=== PATIENT | male | born 1940 | race Caucasian/White ===

== ENCOUNTER → 2016-11-27 | Outpatient (REF) | payer MEDICARE ==
[2016-11-27 12:45] LABS: ALBUMIN 3.8 GM/DL (3.2-5.2); ALBUMIN/GLOBULIN RATIO 1.27 (1.00-1.93); ALKALINE PHOSPHATASE 89 U/L (45-117); ALT/SGPT 17 U/L (12-78); ANION GAP 8 MEQ/L (8-16); AST/SGOT 12 U/L (15-37); BILIRUBIN,TOTAL 0.4 MG/DL (0.2-1.0); BLOOD UREA NITROGEN 17 MG/DL (7-18); CALCIUM LEVEL 9.1 MG/DL (8.8-10.2); CARBON DIOXIDE LEVEL 30 MEQ/L (21-32); CHLORIDE LEVEL 100 MEQ/L (98-107); CREATININE FOR GFR 0.88 MG/DL (0.70-1.30); GLOMERULAR FILTRATION RATE > 60.0 (>42); GLUCOSE, FASTING 94 MG/DL (83-110); POTASSIUM SERUM 4.9 MEQ/L (3.5-5.1); SODIUM LEVEL 138 MEQ/L (136-145); TOTAL PROTEIN 6.8 GM/DL (6.4-8.2)
== END ==
LOC: M SFHCCLAY 08:57
PROVIDERS: ATTEND Family Medicine
DX: I10 Essential (primary) hypertension (principal)
CPT/HCPCS: 36415; 80053; G0463

== ENCOUNTER → 2017-04-02 | Outpatient (REF) | payer MEDICARE ==
[~2017-04-02] MED LIST: ACET1TAB17 PO; ASPI1TAB PO; ATEN25TA PO; DICY10CA13 PO; TERA5CA PO; VENTAER IN
== END ==
LOC: M LABDRAWC 11:18
PROVIDERS: ATTEND Radiology Radiation Oncology
DX: C61 Malignant neoplasm of prostate (principal)

== ENCOUNTER → 2017-04-02 | Outpatient (REF) | payer MEDICARE ==
[2017-04-02 11:44] LABS: BASO # 0.1 K/mm3 (0.0-0.2); BASO % 0.9 % (0.0-1.0); EOS # 0.1 K/mm3 (0.0-0.50); EOS % 1.1 % (0.0-3.0); LARGE UNSTAINED CELL # 0.1 K/mm3 (0.0-0.4); LARGE UNSTAINED CELL % 1.1 % (0.0-4.0); LYMPH # 1.2 K/mm3 (1.5-4.5); LYMPH % 11.7 % (24.0-44.0); MEAN CORPUSCULAR HEMOGLOBIN 32.8 pg (27.0-33.0); MEAN CORPUSCULAR HGB CONC 33.7 g/dl (32.0-36.5); MEAN CORPUSCULAR VOLUME 97.3 fl (80.0-96.0); MONO # 0.7 K/mm3 (0.0-0.8); NEUTROPHILS # 7.1 K/mm3 (1.8-7.7); NEUTROPHILS % 77.2 % (36.0-66.0); PLATELET COUNT, AUTOMATED 327 k/mm3 (150-450); WHITE BLOOD COUNT 9.1 K/mm3 (4.0-10.0)
[2017-04-02 12:18] LABS: ANION GAP 5 MEQ/L (8-16); BLOOD UREA NITROGEN 15 MG/DL (7-18); CALCIUM LEVEL 9.1 MG/DL (8.8-10.2); CARBON DIOXIDE LEVEL 31 MEQ/L (21-32); CHLORIDE LEVEL 101 MEQ/L (98-107); CREATININE FOR GFR 0.75 MG/DL (0.70-1.30); GLOMERULAR FILTRATION RATE > 60.0 (>42); GLUCOSE, FASTING 86 MG/DL (83-110); POTASSIUM SERUM 4.5 MEQ/L (3.5-5.1); SODIUM LEVEL 137 MEQ/L (136-145)
[2017-04-02 12:19] LABS: VITAMIN B12 LEVEL 357 PG/ML (247-911)
[2017-04-02 12:20] LABS: FOLATE 7.3 NG/ML (>5.4)
[2017-04-02 12:36] LABS: ERYTHROCYTE SEDIMENTATION RATE 9 mm/hr (0-20)
== END ==
LOC: M SFHCCLAY 09:09
PROVIDERS: ATTEND Family Medicine
DX: R29.898 Other symptoms and signs involving the musculoskeletal system (principal)

== ENCOUNTER → 2017-04-02 | Outpatient (CLI) | payer MEDICARE ==
--- NOTE | 2017-04-02 11:11 | REP ---
CERVICAL SPINE, EIGHT VIEWS: HISTORY: Hand weakness. COMPARISON: 10/10/2005. The cervical spine is visualized from C1-C7 in the lateral radiographs. There is no acute fracture. The C3-4 through C5-6 intervertebral discs are decreased in height consistent with disc degeneration. Osteophytes are present on C2-5. There is narrowing of the C3-6 neural foramina secondary to uncinate process hypertrophy. There are 2 mm of retrolisthesis of C3 on 4. This reduces with flexion and returns to 2 mm with extension. IMPRESSION: Degenerative change as described above.
== END ==
LOC: M CLY 09:44
PROVIDERS: ATTEND Family Medicine
DX: R29.898 Other symptoms and signs involving the musculoskeletal system (principal); M50.31 Other cervical disc degeneration, high cervical region; M50.321 Other cervical disc degeneration at C4-C5 level; M50.322 Other cervical disc degeneration at C5-C6 level
CPT/HCPCS: 36415; 72050; 80048; 82607; 82746; 84153; 85025; 85652; G0463

== ENCOUNTER → 2017-04-17 | Outpatient (CLI) | payer MEDICARE ==
--- NOTE | 2017-04-17 16:31 | REP ---
HISTORY: Neck pain and radicular symptoms. The patient has a history of prostate carcinoma. Gadolinium utilized: 17.5 mL of ProHance. There are no prior cervical spine MRIs for comparison. There is a slightly exaggerated cervical kyphosis. There is loss of disc space height and disc hydrational signal which is moderate at every level, but more moderate to severe at the C3-4 level. There is a vertebral body hemangioma involving C7. There is no abnormal signal seen in the imaged portion of the spinal cord, however, there is significant motion artifact on all images degrading image quality rather significantly. There is no gross craniovertebral junction abnormality. At the C2-3 level, there is a broad-based annular bulge seen in conjunction with a posterior spondylotic bar which causes mild central canal stenosis. There is no foraminal narrowing or evidence of an acute disc extrusion. At the C3-4 level, there is heavy posterior spondylosis seen in conjunction with a broad-based annular bulge. Hypertrophic degenerative facet and uncovertebral joint changes are present bilaterally. These factors are causing mild to moderate right and mild left foraminal stenosis. There is severe central canal stenosis caused by the aforementioned chronic changes. There is no evidence of an acute disc extrusion. A covered disc is suspected at this level. At the C4-5 level there is a broad-based annular bulge seen in conjunction with a posterior spondylotic bar. Hypertrophic degenerative facet and uncovertebral joint changes are present bilaterally causing mild bilateral foraminal stenosis. The ventral subarachnoid space is nearly obliterated and there is mild compression of the spinal cord. Mild to moderate central canal stenosis is present at this level. There is no evidence of an acute disc extrusion. At the C5-6 level, there is a broad-based annular bulge seen in conjunction with a posterior spondylotic bar. Degenerative facet and uncovertebral joint changes are present at this level bilaterally causing mild bilateral foraminal stenosis. The ventral subarachnoid space is nearly obliterated by the discogenic and spondylotic changes. There is mild to moderate central canal stenosis. I cannot rule out the possibility of a covered disc at this level. At the C6-7 level, there is a broad-based annular bulge seen in conjunction with a posterior spondylotic bar. Degenerative facet and uncovertebral joint changes are present bilaterally causing mild left foraminal stenosis. There is no evidence of right foraminal stenosis. The ventral subarachnoid space is nearly obliterated by the aforementioned discogenic and spondylotic changes causing mild central canal stenosis. There is no evidence of an acute disc extrusion. At the C7-T1 level, there is no abnormality. IMPRESSION: Multiple discogenic changes as described above with particular attention drawn to the C3-4 level. Signed by Tyrone Eldridge DO 04/17/2017 04:46 P
== END ==
LOC: M RAD 12:21
PROVIDERS: ATTEND Family Medicine
DX: M54.12 Radiculopathy, cervical region (principal)
CPT/HCPCS: 72156; A9576

== ENCOUNTER → 2017-05-21 | Outpatient (CLI) | payer MEDICARE ==
--- NOTE | 2017-05-21 10:44 | REP ---
Chest two views HISTORY: Edema Comparison: 01/23/2015 The lungs are clear. The heart is normal in size. The pulmonary vasculature is normal in appearance. Degenerative change is present in the thoracic spine. IMPRESSION: No acute disease.
== END ==
LOC: M CLY 09:47
PROVIDERS: ATTEND Family Medicine
DX: R60.1 Generalized edema (principal)
CPT/HCPCS: 71020; G0463

== ENCOUNTER → 2017-05-21 | Outpatient (REF) | payer MEDICARE ==
[2017-05-21 11:36] LABS: BASO # 0.1 K/mm3 (0.0-0.2); BASO % 0.6 % (0.0-1.0); EOS % 0.5 % (0.0-3.0); LARGE UNSTAINED CELL # 0.1 K/mm3 (0.0-0.4); LARGE UNSTAINED CELL % 0.8 % (0.0-4.0); LYMPH # 0.7 K/mm3 (1.5-4.5); LYMPH % 6.1 % (24.0-44.0); MEAN CORPUSCULAR HEMOGLOBIN 31.3 pg (27.0-33.0); MEAN CORPUSCULAR HGB CONC 32.9 g/dl (32.0-36.5); MONO # 0.8 K/mm3 (0.0-0.8); MONO % 7.6 % (0.0-5.0); NEUTROPHILS # 8.8 K/mm3 (1.8-7.7); NEUTROPHILS % 84.4 % (36.0-66.0); PLATELET COUNT, AUTOMATED 482 k/mm3 (150-450); RED CELL DISTRIBUTION WIDTH 12.8 % (11.5-14.5); WHITE BLOOD COUNT 10.4 K/mm3 (4.0-10.0)
[2017-05-21 12:06] LABS: ANION GAP 10 MEQ/L (8-16); BLOOD UREA NITROGEN 16 MG/DL (7-18); CALCIUM LEVEL 8.8 MG/DL (8.8-10.2); CARBON DIOXIDE LEVEL 27 MEQ/L (21-32); CHLORIDE LEVEL 100 MEQ/L (98-107); CREATININE FOR GFR 0.75 MG/DL (0.70-1.30); GLOMERULAR FILTRATION RATE > 60.0 (>42); GLUCOSE, FASTING 105 MG/DL (83-110); POTASSIUM SERUM 4.9 MEQ/L (3.5-5.1); SODIUM LEVEL 137 MEQ/L (136-145)
[2017-05-21 12:36] LABS: ERYTHROCYTE SEDIMENTATION RATE 35 mm/hr (0-20)
[2017-05-23 00:07] LABS: Lyme Disease IgG/IgM Antibodie <0.91 ISR (0.00-0.90); Lyme Disease IgM Ab Quantitati <0.80 index (0.00-0.79)
== END ==
LOC: M SFHCCLAY 09:23
PROVIDERS: ATTEND Family Medicine
DX: R60.1 Generalized edema (principal); M48.02 Spinal stenosis, cervical region

== ENCOUNTER → 2017-07-07 | Outpatient (REF) | payer MEDICARE | LOC: M LAB REF 11:15 | PROVIDERS: ATTEND Neurological Surgery | DX: M48.02 Spinal stenosis, cervical region (principal); M50.00 Cervical disc disorder with myelopathy, unspecified cervical region ==

== ENCOUNTER → 2017-09-05 | Outpatient (CLI) | payer MEDICARE ==
--- NOTE | 2017-09-08 06:37 | ECHO ---
DATE OF STUDY: 09/05/2017 REFERRING PHYSICIAN: Dr. Toney Hercules INDICATION: Aortic valve disorder (nonrheumatic). HEIGHT: 71 inches. WEIGHT: 165 pounds. 2D MEASUREMENTS: Aortic root: 3.0 cm Aortic annulus. 2.0 cm Left atrium: 3.5 cm Ventricular septum: 1.37 cm Posterior wall: 1.26 cm Left ventricle diastole: 5.7 cm Inferior vena cava: 1.7 cm (more than 60% respiratory variation) DOPPLER MEASUREMENTS: Moderate aortic regurgitation Moderate aortic stenosis Aortic valve area: 0.96 cm squared Aortic stenosis dimensionless index: 0.306 Peak aortic valve velocity: 274.4 cm/sec Aortic valve VTI: 39.77 Peak aortic valve gradient: 29.1 Mean aortic valve gradient: 16.1 LVOT velocity: 84.8 cm/sec LVOT VTI: 12.18 Trace mitral regurgitation Mild tricuspid regurgitation Estimated right ventricular systolic pressure 35 mmHg assuming a right atrial pressure of 5 mmHg DESCRIPTION: The rhythm was atrial fibrillation. Image quality was fair. No pericardial effusion. was a 2-D, M-mode, color flow Doppler and pulse wave Doppler examination and included mitral annular tissue Doppler. CONCLUSIONS: 1. Severe focal thickening and focal calcific deposits of a 3-cuspid aortic valve. Moderate aortic stenosis and moderate aortic regurgitation. 2. Mild left ventricle dilatation. Mild fixed eccentric/concentric left ventricle hypertrophy. No regional wall motion abnormalities of let ventricle. Normal LV systolic function. LVEF 60% by visual estimate. 3. Mild mitral annular calcification. Trace mitral regurgitation. 4. Suggestive of mild elevation of estimated right ventricle systolic pressure.
== END ==
LOC: M CARPUL 08:28
PROVIDERS: ATTEND Family Medicine
DX: I35.8 Other nonrheumatic aortic valve disorders (principal); I65.23 Occlusion and stenosis of bilateral carotid arteries; R00.0 Tachycardia, unspecified

== ENCOUNTER → 2017-09-05 | Outpatient (CLI) | payer MEDICARE ==
--- NOTE | 2017-09-05 12:23 | REP ---
CAROTID ULTRASOUND: Real-time sonographic evaluation and duplex Doppler interrogation of extracranial carotid vasculature is performed. Comparison is made with prior study of 08/04/2015. There is moderate partially calcified plaque and moderate narrowing in both carotid bulbs extending into the internal carotid arteries bilaterally. There is significant greater degree of plaquing and narrowing in the mid to distal left internal carotid artery with shadowing, limiting evaluation of underlying flow velocities. Significant stenosis in this region of the left internal carotid artery cannot be excluded. Otherwise, no hemodynamically significant stenosis is seen in any other portion of the internal carotid arteries bilaterally. There is normal direction of flow in both vertebral arteries. Incidental note is made of tachycardia with inconsistent rhythm. RIGHT LEFT Peak systolic velocity ICA 67.4 cm/s 72.6 cm/s End diastolic velocity ICA 27.7 24.5 Peak systolic velocity CCA 38 30.4 Peak systolic velocity ECA 53.4 67.7 ICA/CCA ratio 1.8 2.4 IMPRESSION: Moderate degree of plaquing and narrowing in the internal carotid arteries bilaterally, left greater than right. There is a significantly greater degree of plaquing and narrowing in the mid to distal left internal carotid artery with distal acoustic shadowing precluding evaluation of underlying flow velocities. Significant stenosis in this region cannot be excluded. Recommend further evaluation with MRA or CTA of the carotid arteries. Signed by Fred Redding MD 09/05/2017 04:59 P
== END ==
LOC: M RAD 09:50
PROVIDERS: ATTEND Family Medicine
DX: I35.8 Other nonrheumatic aortic valve disorders (principal); I65.23 Occlusion and stenosis of bilateral carotid arteries; R00.0 Tachycardia, unspecified

== ENCOUNTER → 2017-10-14 | Outpatient (REF) | payer MEDICARE ==
[2017-10-14 18:57] LABS: BASO % 0.6 % (0.0-1.0); EOS % 0.6 % (0.0-3.0); HEMATOCRIT 39.2 % (42.0-52.0); HEMOGLOBIN 12.3 g/dl (14.0-18.0); IMMATURE GRANULOCYTE % 0.4 % (0-0); LYMPH # 0.5 10^3/uL (1.5-4.5); LYMPH % 6.9 % (24.0-44.0); MEAN CORPUSCULAR HEMOGLOBIN 29.5 pg (27.0-33.0); MEAN CORPUSCULAR HGB CONC 31.4 g/dl (32.0-36.5); MONO # 0.6 10^3/uL (0.0-0.8); MONO % 8.9 % (0.0-5.0); NEUTROPHILS # 5.7 10^3/uL (1.8-7.7); NEUTROPHILS % 82.6 % (36.0-66.0); PLATELET COUNT, AUTOMATED 364 10^3/uL (150-450); RED BLOOD COUNT 4.17 10^6/uL (4.30-6.10); RED CELL DISTRIBUTION WIDTH 15.2 % (11.5-14.5)
[2017-10-14 19:11] LABS: ANION GAP 8 MEQ/L (8-16); BLOOD UREA NITROGEN 15 MG/DL (7-18); CALCIUM LEVEL 8.8 MG/DL (8.8-10.2); CARBON DIOXIDE LEVEL 29 MEQ/L (21-32); CHLORIDE LEVEL 100 MEQ/L (98-107); CREATININE FOR GFR 0.75 MG/DL (0.70-1.30); GLOMERULAR FILTRATION RATE > 60.0 (>42); GLUCOSE, FASTING 115 MG/DL (70-100); NT-PRO BNP 3422 PG/ML (<450); POTASSIUM SERUM 4.7 MEQ/L (3.5-5.1); SODIUM LEVEL 137 MEQ/L (136-145)
== END ==
LOC: M SFHCCLAY 10:11
DX: I65.23 Occlusion and stenosis of bilateral carotid arteries (principal)
CPT/HCPCS: 80048

== ENCOUNTER → 2017-10-27 | Outpatient (REF) | payer MEDICARE ==
[2017-10-27 17:17] LABS: ANION GAP 7 MEQ/L (8-16); BLOOD UREA NITROGEN 24 MG/DL (7-18); CALCIUM LEVEL 9.3 MG/DL (8.8-10.2); CARBON DIOXIDE LEVEL 31 MEQ/L (21-32); CHLORIDE LEVEL 100 MEQ/L (98-107); GLOMERULAR FILTRATION RATE > 60.0 (>42); GLUCOSE, FASTING 107 MG/DL (70-100); POTASSIUM SERUM 4.5 MEQ/L (3.5-5.1); SODIUM LEVEL 138 MEQ/L (136-145)
== END ==
LOC: M SFHCCLAY 09:48
DX: M48.02 Spinal stenosis, cervical region (principal)
CPT/HCPCS: 80048

== ENCOUNTER → 2017-11-26 | Outpatient (CLI) | payer MEDICARE ==
[2017-11-26 10:57] LABS: BASO # 0.1 10^3/uL (0.0-0.2); BASO % 0.6 % (0.0-1.0); EOS # 0.1 10^3/uL (0.0-0.50); EOS % 0.9 % (0.0-3.0); HEMATOCRIT 40.6 % (42.0-52.0); HEMOGLOBIN 13.2 g/dl (14.0-18.0); IMMATURE GRANULOCYTE % 0.3 % (0-3.0); LYMPH % 10.3 % (24.0-44.0); MEAN CORPUSCULAR HEMOGLOBIN 29.8 pg (27.0-33.0); MEAN CORPUSCULAR HGB CONC 32.5 g/dl (32.0-36.5); MEAN CORPUSCULAR VOLUME 91.6 fl (80.0-96.0); MONO # 0.7 10^3/uL (0.0-0.8); MONO % 7.3 % (0.0-5.0); NEUTROPHILS # 7.5 10^3/uL (1.8-7.7); NEUTROPHILS % 80.6 % (36.0-66.0); PLATELET COUNT, AUTOMATED 366 10^3/uL (150-450); RED BLOOD COUNT 4.43 10^6/uL (4.30-6.10); RED CELL DISTRIBUTION WIDTH 15.8 % (11.5-14.5); WHITE BLOOD COUNT 9.3 10^3/uL (4.0-10.0)
[2017-11-26 11:27] LABS: ANION GAP 6 MEQ/L (8-16); BLOOD UREA NITROGEN 15 MG/DL (7-18); CALCIUM LEVEL 9.5 MG/DL (8.8-10.2); CARBON DIOXIDE LEVEL 31 MEQ/L (21-32); CHLORIDE LEVEL 99 MEQ/L (98-107); CREATININE FOR GFR 0.79 MG/DL (0.70-1.30); GLOMERULAR FILTRATION RATE > 60.0 (>42); GLUCOSE, FASTING 95 MG/DL (70-100); POTASSIUM SERUM 4.4 MEQ/L (3.5-5.1); SODIUM LEVEL 136 MEQ/L (136-145)
== END ==
LOC: M LAB 10:21
DX: I65.23 Occlusion and stenosis of bilateral carotid arteries (principal)
CPT/HCPCS: 80048

== ENCOUNTER → 2017-12-05 | Outpatient (CLI) | payer MEDICARE ==
[~2017-12-05] MED LIST changes: -ACET1TAB17 PO; -ASPI1TAB PO; -ATEN25TA PO; -DICY10CA13 PO; +ISOVUE-370 76% 100ML VIAL (Q9967) As Ordered; -TERA5CA PO; -VENTAER IN
== END ==
LOC: M RAD 09:41
DX: I65.23 Occlusion and stenosis of bilateral carotid arteries (principal); I25.10 Atherosclerotic heart disease of native coronary artery without angina pectoris
CPT/HCPCS: Q9967

== ENCOUNTER → 2018-03-23 | Outpatient (CLI) | payer MEDICARE | LOC: M CLY 14:06 | DX: J41.0 Simple chronic bronchitis (principal) | CPT/HCPCS: 71046; G0463 ==

== ENCOUNTER → 2018-04-28 | Outpatient (CLI) | payer MEDICARE | LOC: M CLY 10:51 | DX: M48.02 Spinal stenosis, cervical region (principal); G95.9 Disease of spinal cord, unspecified; Z98.1 Arthrodesis status; M50.31 Other cervical disc degeneration, high cervical region; M50.321 Other cervical disc degeneration at C4-C5 level; M50.322 Other cervical disc degeneration at C5-C6 level | CPT/HCPCS: 72052 ==

== ENCOUNTER → 2018-07-01 | Outpatient (CLI) | payer MEDICARE | LOC: M RAD 11:48 | DX: I65.23 Occlusion and stenosis of bilateral carotid arteries (principal) | CPT/HCPCS: 93880 ==

== ENCOUNTER → 2018-09-25 | Outpatient (REF) | payer MEDICARE ==
[~2018-09-25] MED LIST changes: +ACET1TAB55 PO; +ASPI1TAB PO; +ATEN25TA PO; +DICY10CA13 PO; -ISOVUE-370 76% 100ML VIAL (Q9967) As Ordered; +TERA5CAP3 PO; +VENTAER IN
[2018-09-25 18:40] LABS: ALT/SGPT 28 U/L (12-78); BILIRUBIN,TOTAL 0.7 MG/DL (0.2-1.0); BLOOD UREA NITROGEN 22 MG/DL (7-18); CALCIUM LEVEL 9.4 MG/DL (8.8-10.2); CARBON DIOXIDE LEVEL 29 MEQ/L (21-32); CHLORIDE LEVEL 107 MEQ/L (98-107); GLOMERULAR FILTRATION RATE > 60.0 (>42); GLUCOSE, FASTING 80 MG/DL (70-100); POTASSIUM SERUM 4.5 MEQ/L (3.5-5.1); SODIUM LEVEL 142 MEQ/L (136-145); TOTAL PROTEIN 7.4 GM/DL (6.4-8.2)
[2018-09-25 19:14] LABS: BASO # 0.1 10^3/uL (0.0-0.2); EOS # 0.1 10^3/uL (0.0-0.50); EOS % 1.9 % (0.0-3.0); HEMATOCRIT 43.3 % (42.0-52.0); HEMOGLOBIN 14.1 g/dl (13.5-17.5); LYMPH # 1.4 10^3/uL (1.5-4.5); LYMPH % 19.7 % (24.0-44.0); MEAN CORPUSCULAR HEMOGLOBIN 33.7 pg (27.0-33.0); MEAN CORPUSCULAR HGB CONC 32.6 g/dl (32.0-36.5); MEAN CORPUSCULAR VOLUME 103.6 fl (80.0-96.0); MONO # 0.6 10^3/uL (0.0-0.8); MONO % 8.9 % (0.0-5.0); NEUTROPHILS # 4.7 10^3/uL (1.8-7.7); NEUTROPHILS % 67.8 % (36.0-66.0); PLATELET COUNT, AUTOMATED 263 10^3/uL (150-450); RED BLOOD COUNT 4.18 10^6/uL (4.30-6.10)
== END ==
LOC: M SFHCCLAY 10:24
PROVIDERS: ATTEND Family Medicine
DX: I10 Essential (primary) hypertension (principal); Z79.01 Long term (current) use of anticoagulants

== ENCOUNTER → 2018-12-28 | Outpatient (CLI) | payer MEDICARE ==
[~2018-12-28] MED LIST changes: -ASPI1TAB PO; +ASPI81TA26 PO
--- NOTE | 2018-12-28 10:09 | REP ---
RIGHT SHOULDER, THREE VIEWS: Three views of the right shoulder are performed. There is no acute fracture or dislocation. There is mild spurring of the distal end of the clavicle as well as of the bony glenoid. No other significant findings are seen. IMPRESSION: Mild spurring distal clavicle and glenoid.
== END ==
LOC: M CLY 09:15
PROVIDERS: ATTEND Family Medicine
DX: M25.511 Pain in right shoulder (principal)

== ENCOUNTER → 2019-04-05 | Outpatient (REF) | payer MEDICARE ==
[2019-04-05 16:50] LABS: BASO # 0.1 10^3/uL (0.0-0.2); EOS # 0.1 10^3/uL (0.0-0.50); EOS % 1.6 % (0.0-3.0); HEMOGLOBIN 13.7 g/dl (13.5-17.5); LYMPH # 1.3 10^3/uL (1.5-4.5); LYMPH % 21.2 % (24.0-44.0); MEAN CORPUSCULAR HEMOGLOBIN 33.3 pg (27.0-33.0); MEAN CORPUSCULAR HGB CONC 32.6 g/dl (32.0-36.5); MEAN CORPUSCULAR VOLUME 101.9 fl (80.0-96.0); MONO # 0.6 10^3/uL (0.0-0.8); NEUTROPHILS # 4.1 10^3/uL (1.8-7.7); NEUTROPHILS % 65.9 % (36.0-66.0); PLATELET COUNT, AUTOMATED 272 10^3/uL (150-450); RED BLOOD COUNT 4.12 10^6/uL (4.30-6.10); WHITE BLOOD COUNT 6.2 10^3/uL (4.0-10.0)
[2019-04-05 16:57] LABS: BLOOD UREA NITROGEN 18 MG/DL (7-18); CALCIUM LEVEL 9.4 MG/DL (8.8-10.2); CARBON DIOXIDE LEVEL 30 MEQ/L (21-32); CHLORIDE LEVEL 102 MEQ/L (98-107); CREATININE FOR GFR 0.78 MG/DL (0.70-1.30); GLOMERULAR FILTRATION RATE > 60.0 (>42); GLUCOSE, FASTING 76 MG/DL (70-100); POTASSIUM SERUM 4.8 MEQ/L (3.5-5.1); SODIUM LEVEL 138 MEQ/L (136-145)
== END ==
LOC: M SFHCCLAY 10:05
PROVIDERS: ATTEND Family Medicine
DX: I10 Essential (primary) hypertension (principal); R31.0 Gross hematuria; Z79.01 Long term (current) use of anticoagulants
CPT/HCPCS: 80048; 85025; G0463

== ENCOUNTER → 2019-04-06 | Outpatient (REF) | payer MEDICARE ==
[2019-04-06 13:42] LABS: APPEARANCE, URINE CLEAR (CLEAR); BACTERIA, URINE AUTO NEGATIVE (NEGATIVE); BILIRUBIN, URINE AUTO NEGATIVE (NEGATIVE); BLOOD, URINE BLOOD NEGATIVE (NEGATIVE); COLOR, URINE YELLOW (YELLOW); GLUCOSE, URINE (UA) AUTO NEGATIVE (NEGATIVE); KETONE, URINE AUTO NEGATIVE (NEGATIVE); LEUKOCYTE ESTERASE, URINE AUTO NEGATIVE (NEGATIVE); MUCUS, URINE SMALL (NEGATIVE); NITRITE, URINE AUTO NEGATIVE (NEGATIVE); PROTEIN, URINE AUTO NEGATIVE (NEGATIVE); RBC, URINE AUTO 1 /HPF (0-3); SPECIFIC GRAVITY URINE AUTO 1.016 (1.002-1.035); SQUAMOUS EPITHELIAL CELL UR AU 0 /HPF (0-6); UROBILINOGEN, URINE AUTO 0.2 mg/dL (0.0-2.0); WBC, URINE AUTO 2 /HPF (0-3)
== END ==
LOC: M SFHCCLAY 11:58
PROVIDERS: ATTEND Family Medicine
DX: R31.0 Gross hematuria (principal)

== ENCOUNTER → 2019-12-06 | Outpatient (REF) ==
[~2019-12-06] MED LIST changes: +ADVA230A INH; +ALBU83IN NEB; +AMPI1INJ IV; +BISA10SU4 PR; +CEFT1INJ5 IV; +ENEMENE PR; +FURO40TA2 PO; +MILKSUS3 PO; +PNEU0.5I2 IM; +POTA10TA17 PO; +PROAAER10 INH; +PROP20TA72 PO; +XARE20TA PO
[2019-12-06 12:32] LABS: BASO # 0.1 10^3/uL (0.0-0.2); BASO % 0.8 % (0.0-1.0); EOS # 0.1 10^3/uL (0.0-0.5); EOS % 1.1 % (0.0-3.0); HEMATOCRIT 32.6 % (42.0-52.0); LYMPH # 0.6 10^3/uL (1.5-5.0); LYMPH % 7.2 % (24.0-44.0); MEAN CORPUSCULAR HEMOGLOBIN 33.8 pg (27.0-33.0); MEAN CORPUSCULAR HGB CONC 30.7 g/dl (32.0-36.5); MEAN CORPUSCULAR VOLUME 110.1 fl (80.0-96.0); MONO # 0.6 10^3/uL (0.0-0.8); MONO % 7.8 % (0.0-5.0); NEUTROPHILS # 6.5 10^3/uL (1.5-8.5); NEUTROPHILS % 82.5 % (36.0-66.0); PLATELET COUNT, AUTOMATED 351 10^3/uL (150-450); RED BLOOD COUNT 2.96 10^6/uL (4.30-6.10); WHITE BLOOD COUNT 7.9 10^3/uL (4.0-10.0)
[2019-12-06 12:58] LABS: ALBUMIN 2.1 GM/DL (3.2-5.2); ALT/SGPT 38 U/L (12-78); BILIRUBIN,DIRECT 0.2 MG/DL (0.0-0.2); BILIRUBIN,TOTAL 0.3 MG/DL (0.2-1.0); BLOOD UREA NITROGEN 20 MG/DL (7-18); C REACTIVE PROTEIN QUANTITATIV 4.66 MG/DL (0.00-0.30); CALCIUM LEVEL 8.7 MG/DL (8.8-10.2); CARBON DIOXIDE LEVEL 29 MEQ/L (21-32); CHLORIDE LEVEL 104 MEQ/L (98-107); CREATININE FOR GFR 0.61 MG/DL (0.70-1.30); GLOMERULAR FILTRATION RATE > 60.0 (>35); GLUCOSE, FASTING 120 MG/DL (70-100); POTASSIUM SERUM 4.1 MEQ/L (3.5-5.1); SODIUM LEVEL 139 MEQ/L (136-145); TOTAL PROTEIN 5.9 GM/DL (6.4-8.2)
== END ==
PROVIDERS: ATTEND Family Medicine
DX: R78.81 Bacteremia (principal)

== ENCOUNTER → 2019-12-07 | Outpatient (REF) | PROVIDERS: ATTEND Family Medicine | DX: D69.2 Other nonthrombocytopenic purpura (principal) ==

== ENCOUNTER 2019-12-08 10:56 | Inpatient (IN) | payer MEDICARE ==
[~2019-12-08] VITALS: Ht 182.9 cm; Wt 79.8 kg
[~2019-12-08 10:56] MED LIST changes: -ADVA230A INH; -ALBU83IN NEB; -AMPI1INJ IV; -BISA10SU4 PR; -CEFT1INJ5 IV; -ENEMENE PR; -FURO40TA2 PO; -HYDR-3363 PO; -LEVAINH INH; -METO1TAB87 PO; -MILKSUS3 PO; -PNEU0.5I2 IM; -POTA10TA17 PO; -PROAAER10 INH; -PROP20TA72 PO; -XARE20TA PO
[2019-12-08] MEDS ORDERED: COMBIVENT RESPIMAT 100-20MCG INHALER 4GM INH PRN (11:15)
[2019-12-08 11:48] LABS: VENOUS BASE EXCESS 5.9 (-2.0-2.0); VENOUS HCO3 31.8 MEQ/L (23.0-27.0); VENOUS O2 SATURATION 64.6 % (60.0-80.0); VENOUS PARTIAL PRESSURE CO2 53.4 mmHg (38.0-50.0); VENOUS PARTIAL PRESSURE O2 37.9 mmHg (30.0-50.0); VENOUS PH 7.393 UNITS (7.330-7.430); VENOUS STANDARD HCO3 29.3 MEQ/L; VENOUS TOTAL CO2 33.5 MEQ/L (24.0-28.0)
[2019-12-08] MEDS ORDERED: AMPI1INJ IV (11:51)
[2019-12-08] MEDS ORDERED: MILKSUS3 PO (11:51)
[2019-12-08] MEDS ORDERED: XARE20TA PO (11:51)
[2019-12-08] MEDS ORDERED: PROAAER10 INH (11:51)
[2019-12-08] MEDS ORDERED: ADVA230A INH (11:51)
[2019-12-08] MEDS ORDERED: PROP20TA72 PO (11:51)
[2019-12-08] MEDS ORDERED: ASPI81TA26 PO (11:51)
[2019-12-08] MEDS ORDERED: POTA10TA17 PO (11:51)
[2019-12-08] MEDS ORDERED: ENEMENE PR (11:51)
[2019-12-08] MEDS ORDERED: CEFT1INJ5 IV ×2 (11:51)
[2019-12-08] MEDS ORDERED: FURO40TA2 PO (11:51)
[2019-12-08] MEDS ORDERED: BISA10SU4 PR (11:51)
[2019-12-08] MEDS ORDERED: PNEU0.5I2 IM (11:51)
[2019-12-08 11:55] LABS: BASO % 0.4 % (0.0-1.0); EOS % 0.6 % (0.0-3.0); LYMPH # 0.6 10^3/uL (1.5-5.0); LYMPH % 8.1 % (24.0-44.0); MEAN CORPUSCULAR HEMOGLOBIN 33.3 pg (27.0-33.0); MEAN CORPUSCULAR VOLUME 111.1 fl (80.0-96.0); MONO # 0.6 10^3/uL (0.0-0.8); MONO % 8.1 % (0.0-5.0); NEUTROPHILS # 5.9 10^3/uL (1.5-8.5); PLATELET COUNT, AUTOMATED 326 10^3/uL (150-450); WHITE BLOOD COUNT 7.2 10^3/uL (4.0-10.0)
--- NOTE | 2019-12-08 11:56 | REP ---
CHEST, SINGLE VIEW: Single view of the chest is performed. COMPARISON: 03/23/2018. There is cardiomegaly. There is vascular congestion. There are bibasilar infiltrates and effusions. There is calcification of the thoracic aorta. A right arm Peripherally inserted central catheter (PICC) line is seen with the tip in the superior vena cava. IMPRESSION: Findings consistent with cardiomegaly, congestive heart failure with bibasilar infiltrates and effusions. Electronically Signed by Fred Redding MD 12/08/2019 03:18 P
[2019-12-08] MEDS ORDERED: ALBU83IN NEB (12:03)
[2019-12-08 12:09] LABS: PROTHROMBIN TIME 39.1 SECONDS (11.8-14.0)
--- NOTE | 2019-12-08 12:26 | ECGEPIP ---
[facility] - ED Test Date: 2019-12-08 Pat Name: RAGHAV WEBSTER Department: Room: - Gender: Male [employer] Apprentice: MUMTAZ : 1940 Requested By: Beth Jauregui Order Number: [id number] Reading MD: Avtar Guerra Measurements Intervals [place] Rate: 74 P: GA: 0 QRS: -9 QRSD: 105 T: 0 QT: 446 QTc: 495 Interpretive Statements ATRIAL FIBRILLATION WITH ABERRANT CONDUCTION OR VENTRICULAR PREMATURE COMPLEXES INFERIOR MYOCARDIAL INFARCTION, PROBABLY OLD ANTEROSEPTAL MYOCARDIAL INFARCTION, OF INDETERMINATE AGE NO PRIORS FOR COMPARISON Electronically Signed on 12-08-2019 12:25:45 EDT by Avtar Guerra
[2019-12-08 12:34] LABS: ALT/SGPT 49 U/L (12-78); BILIRUBIN,DIRECT 0.2 MG/DL (0.0-0.2); BILIRUBIN,TOTAL 0.2 MG/DL (0.2-1.0); BLOOD UREA NITROGEN 23 MG/DL (7-18); CALCIUM LEVEL 8.1 MG/DL (8.8-10.2); CARBON DIOXIDE LEVEL 31 MEQ/L (21-32); CHLORIDE LEVEL 105 MEQ/L (98-107); CK-MB VALUE MASS 1.7 NG/ML (<3.6); CPK CREATINE PHOSPHOKINASE 24 U/L (39-308); CREATININE FOR GFR 0.69 MG/DL (0.70-1.30); GLOMERULAR FILTRATION RATE > 60.0 (>35); GLUCOSE, FASTING 188 MG/DL (70-100); MB/CK RELATIVE INDEX 7.08 (< OR =4); NT-PRO BNP 21078 PG/ML (<450); POTASSIUM SERUM 3.4 MEQ/L (3.5-5.1); SODIUM LEVEL 141 MEQ/L (136-145); TOTAL PROTEIN 5.8 GM/DL (6.4-8.2); TROPONIN I 0.23 NG/ML (< 0.10)
[2019-12-08] MEDS ORDERED: FUROSEMIDE 40 MG/4 ML VIAL (J1940) IV ONE (13:00)
[2019-12-08] MEDS ORDERED: ACETAMINOPHEN TAB 650MG DOSE (2X325MG) PO PRN (14:30)
[2019-12-08] MEDS ORDERED: BISACODYL 10 MG SUPP PR PRN (14:45)
[2019-12-08] MEDS ORDERED: MOM 30ML SUSPENSION UDC PO PRN (14:45)
[2019-12-08] MEDS ORDERED: POTASSIUM CHLORIDE 10 MEQ SR TABLET PO ONE (15:00)
[2019-12-08 15:01] LABS: ERYTHROCYTE SEDIMENTATION RATE 52 mm/hr (0-20)
[2019-12-08 15:55] VITALS: BP 113/72
--- NOTE | 2019-12-08 17:35 | HPEPDOC ---
[facility] Medical History & Physical Date of Admission Dec 08, 2019 Date of Service: Dec 08, 2019 Primary Care Physician: Toney Hercules M.D. History and Physical CHIEF COMPLAINT: SOB, weakness, leg swelling HISTORY OF PRESENT ILLNESS: Nacho Blake is an 79 YO with recurrent PNA, recent history of bacteremia on IV antibiotics, and severe aortic stenosis who presents from [facility] rehab with shortness of breath, weakness, increased leg swelling. The patient reports that he was recently hospitalized in [facility] (10/21 - 11/01) for recurrent pneumonia. He notes that he has had pneumonia at least 3 separate times in the past 6 months. On that hospitalization, he was found to have bacteremia due to enterococcus faecalis. Source was not found--patient underwent UGI endoscopy and colonoscopy, TTE and TUNG and no cancer or endocarditis was found. He is currently undergoing IV antibiotic therapy for a total of 33 days. In addition, he is undergoing rehabilitation in hopes of getting a TAVR. The patient reports that he only gets short of breath when he is undergoing physical therapy and when he is moving in general. Otherwise at rest he has no difficulty breathing. He himself has noticed any increased leg swelling. He has no known sick contacts. He sleeps on 2 pillows and is able to lay flat. Of note, he has lost over 60 pounds in the past 3 months. 10/22 blood culture x 2 with Enterococcus faecalis sensitive to Ampicillin Repeat blood culture 10/24 x2 NG PAST MEDICAL HISTORY: Nonrheumatic aortic valve stenosis Atrial fibrillation Like obstructive pulmonary disease, not on oxygen HTN. IBS. HX. BORDERLINE DIABETES. NEUROPATHIC (L) ARM SX.. History of Prostate cancer Anemia, chronic Severe protein calorie malnutrition Spinal stenosis-cervical region. PAST SURGICAL HISTORY: back surgery TURP 01/1996 appendectomy cholecystectomy colonoscopy 12/24/13 skin cancer right shoulder- 07/2014 tonsillectomy Heart cath 11/19/17 C 3-5 laminoplasty 03/27/2018 SOCIAL HISTORY: Former pipe smoker for greater than 50 years. Quit 2 months ago. No alcohol use. No other drug abuse FAMILY HISTORY: Father: 94 yrs, heart attack Mother: 95 yrs, heart attack Siblings: alive, all healthy 4 sister(s) . 1 son(s) , 1 daughter(s) . ALLERGIES: Please see below. REVIEW OF SYSTEMS: CONSTITUTIONAL: Feels well. No fever or chills HEENT: denies vision changes, no sinus problems, denies any trouble swallowing CARDIOVASCULAR: no palpitations RESPIRATORY: Reports shortness of breath with activity, coughing without productive sputum GENITOURINARY: No dysuria MUSCULOSKELETAL: Denies any joint/muscle pain GASTROINTESTINAL: Denies abdominal pain, no nausea/vomiting/diarrhea SKIN: No new rashes or lesions NEUROLOGICAL: No loss of sensation PSYCHIATRIC: Reports normal mood, no delusions or hallucinations ENDOCRINE: No hot/cold intolerance HEMATOLOGIC/LYMPHATIC: No easy bruising, no lumps/bumps ALLERGIC/IMMUNOLOGIC: No sinus symptoms HOME MEDICATIONS: Please see below. PHYSICAL EXAMINATION: VITAL SIGNS: Please see below. GENERAL APPEARANCE: Laying in bed, very cachectic, appears stated age, no acute distress, calm, cooperative HEENT: EOMI, PERRLA, neck is supple with no thyromegaly or lymphadenopathy, very poor dentition CHEST: There is a purpuric rash on the R shoulder extending up to the neck. A line of demarcation has already been drawn and rash has regressed from the area of this line. RESPIRATORY: Crackles are appreciated bilaterally, with no other adventitious breath sounds CARDIOVASCULAR: JVD is is noted to be about 9 cm above this sternal angle, irregularly irregular rhythm , 4/6 systolic ejection murmur heard very loudly in the right upper sternal border that radiates to the carotids. PMI is displaced ABDOMEN: Soft, nontender to palpation in all four quadrants, no masses/organomegaly EXTREMITIES: no clubbing, cyanosis or edema noted NEUROLOGICAL: Cranial nerves II through XII are intact, No obvious focal deficits PSYCHIATRIC: normal mood/affect Skin: No rashes or ulcers. LN: No significant cervical or inguinal lymphadenopathy LABORATORY DATA: See below. IMAGIND TRANSTHOROACIC ECHOCARDIOGRAM 11/24/2019: 1. Left ventricular cavity size is moderately dilated with mild increase in wall thickness. Right ventricle is mildly dilated with reduced function. 2. Left ventricular systolic function is moderately reduced with estimated ejection fraction of 30-35%. 3. Left ventricular wall motion is moderate diffuse global hypokinesis. 4. Left ventricular diastolic function is abnormal with elevated filling pressure. 5. Severe biatrial enlargement. 6. Estimated pulmonary artery pressure is 50 mmHg 7. 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 Aortic valve V max is 4.41 M/Sec, max/mean gradient 78/49 mmHg consistent with severe aortic stenosis. At least moderate aortic regurgitation. There are 2 jets. TRANSESOPHAGEAL ECHOCARDIOGRAM 11/26/2019 There is a clot in the atrial appendage. All findings same as above. MICROBIOLOGY: Please see below. ASSESSMENT: This is an 79-year-old male with history of severe aortic stenosis and congestive heart failure who presents with shortness of breath, weakness and lower extremity swelling concerning for congestive heart failure exacerbation versus worsening aortic stenosis. He will be admitted to the medical surgical floor for diuresis at this time. PLAN: 1. decompensated Congestive heart failure, NYHA class III: Likely etiology is severe aortic stenosis. Left ventricular ejection fraction 30-35%. -Will start patient on 40 mg IV Lasix twice daily with net negative goal 2L/day -Strict I/O with 2g Sodium diet, daily weights -Will await improvement of SOB in AM. If not, will consult cardiology (Florentino) -RVP negative 2. Severe aortic stenosis: AV mean gradient 78 mmHg -Will take caution with diuresis so as to be excessive in decreasing preload, which could worsen his aortic stenosis -Patient is known candidate for TAVR. No indication for transfer at this time. 3. Chronic Atrial fibrillation, non-valvular: -Continue Xarelto -Continue home Propanolol 4. History of Enterococcus bacteremia: -Currently on 33 days of IV Ampicillin and IV Rocephin. Will continue via PICC line -No infectious symptoms at this time -Colonoscopy negative, no findings of endocarditis -Will repeat blood cultures 5. Mobile clot in Left atrial appendage: received IV heparin at [facility] -Currently on Xarelto 6. Urinary retention: -Continue home Terazosin 7. COPD: -Continue home inhalers 7. Deconditioning: -PT/OT ordered 8. Chronic anemia: -Will order B12 level -Hgb stable at this moment 9. Severe protein calorie malnutrition: -Albumin found to be 2.0 -Patient has had 60 lb weight loss over the past several months -Speech therapy consult for swallowing -Patient will need dietary consult DISPO: Pending clinical improvement in fluid status and SOB. Vital Signs Vital Signs Date Time Temp Pulse Resp B/P (MAP) Pulse Ox O2 Delivery O2 Flow Rate FiO2 12/08/19 15:45 74 127/62 (83) 98 12/08/19 15:00 20 3/18/20 14:45 97.4 Room Air Laboratory Data Labs 24H Laboratory Tests 2 12/08/19 11:35: Immature Granulocyte % (Auto) 0.8, Neutrophils (%) (Auto) 82.0H, Lymphocytes (%) (Auto) 8.1L, Monocytes (%) (Auto) 8.1H, Eosinophils (%) (Auto) 0.6, Basophils (%) (Auto) 0.4, Neutrophils # (Auto) 5.9, Lymphocytes # (Auto) 0.6L, Monocytes # (Auto) 0.6, Eosinophils # (Auto) 0.0, Basophils # (Auto) 0.0, Nucleated Red Blood Cells % (auto) 1.4H, Erythrocyte Sedimentation Rate 52H, Prothrombin Time 39.1H, Prothromb Time International Ratio 4.00, Blood Gas Bicarbonate Standard 29.3, Venous Blood pH 7.393, Venous Blood Partial Pressure CO2 53.4H, Venous Blood Partial Pressure O2 37.9, Venous Blood Total Carbon Dioxide 33.5H, Venous Blood HCO3 31.8H, Venous Blood Oxygen Saturation 64.6, Venous Blood Base Excess 5.9H, Anion Gap 5L, Glomerular Filtration Rate > 60.0, Lactic Acid Level 2.5*H, Calcium Level 8.1L, Total Bilirubin 0.2, Direct Bilirubin 0.2, Aspartate Amino Transf (AST/SGOT) 42H, Alanine Aminotransferase (ALT/SGPT) 49, Alkaline Phosphatase 102, Total Creatine Kinase 24L, Creatine Kinase MB 1.7, Creatine Kinase MB Relative Index 7.08H, Troponin I 0.23H, NS-Qai-M-Type Natriuretic Peptide 02303B, Total Protein 5.8L, Albumin 2.0L, Albumin/Globulin Ratio 0.53L, Thyroid Stimulating Hormone (TSH) 1.450 12/08/19 16:12: CBC/BMP Laboratory Tests 12/08/19 11:35 Microbiology Microbiology 12/08/19 Blood Culture, Received Pending 12/08/19 Respiratory Virus Panel (PCR) (JUNE) - Final, Complete 12/08/19 Blood Culture, Received Pending Home Medications Scheduled Ampicillin Sodium (Ampicillin Sodium) 1 Gm Vial.port, 2 GM IV Q4H FOR 33 DAYS 0500,0900,1300,1700,2100 START 12/03/19 END 04/14/20 Aspirin (Aspirin EC) 81 Mg Tablet.dr, 81 MG PO BID Ceftriaxone Sodium (Ceftriaxone) 1 Gm Vial, 2 GRAM IV DAILY FOR 1 DOSE START 01/05/20 Ceftriaxone Sodium (Ceftriaxone) 1 Gm Vial, 2 GRAM IV BID 0600 AND 1800 START 12/03/19 END 01/04/20 Dicyclomine HCl (Dicyclomine HCl) 10 Mg Cap, 10 MG PO BID Fluticasone Propion/Salmeterol (Advair Hfa 230-21 Mcg Inhaler) 12 Gm Hfa.aer.ad, 2 PUFF INH BID Furosemide (Furosemide) 40 Mg Tablet, 40 MG PO DAILY Potassium Chloride (Potassium Chloride) 10 Meq Tab.er.prt, 10 MEQ PO DAILY Propranolol HCl (Propranolol HCl) 20 Mg Tablet, 20 MG PO BID Rivaroxaban (Xarelto) 20 Mg Tablet, 20 MG PO DAILY Terazosin HCl (Terazosin HCl) 5 Mg Cap, 5 MG PO DAILY Scheduled PRN Acetaminophen (Acetaminophen) 325 Mg Tab, 650 MG PO Q4H PRN for PAIN / FEVER Albuterol Sulf (Albuterol Sulfate) 2.5 Mg/3 Ml Vial.neb, 1 VIAL NEB Q6H PRN for SHORTNESS OF BREATH Albuterol Sulfate (Proair Hfa) 8.5 Gm Hfa.aer.ad, 2 PUFF INH Q6H PRN for SHORTNESS OF BREATH Bisacodyl (Bisacodyl) 10 Mg Supp.rect, 10 MG DE DAILY PRN for CONSTIPATION Magnesium Hydroxide (Milk of Magnesia) 400 Mg/5 Ml Oral.susp, 30 ML PO DAILY PRN for CONSTIPATION Sodium Phosphate,Hodgeman-Dibasic (Enema) 133 Ml Enema, 1 TAYLOR DE DAILY PRN for CONSTIPATION Allergies Coded Allergies: meperidine (Verified Adverse Reaction, Unknown, vomiting, 12/08/19) A-FIB/CHADSVASC A-FIB History Current/History of A-Fib/PAF?: Yes Current PO Anticoag Therapy: Yes GME ATTESTATION GME ATTESTATION My faculty preceptor for this patient encounter was physically present during the encounter and was fully available. All aspects of the patient interview, examination, medical decision making process, and medical care plan development were reviewed and approved by the faculty preceptor. The faculty preceptor is aware and concurs with the plan as stated in the body of this note and will attest to such by his/her cosignature. ATTENDING NOTE I, Adriana Lane, have independently examined this patient and performed my own physical exam, as well as reviewed the documentation. I have discussed in detail with the resident / student the findings and plan of treatment as documented by the resident / student. I agree with their findings and treatment plan. I will continue to follow the patient during this hospital stay. NANCIE OWEN MD Dec 08, 2019 17:[address] DO Dec 09, 2019 13:14
[2019-12-08] MEDS ORDERED: FUROSEMIDE 40 MG/4 ML VIAL (J1940) IV SCH (18:00)
[2019-12-08] MEDS: AMPICILLIN SOD 2 GM in D5W MINI-BAG PLUS 100 ML IV SCH ×2 (18:16→20:56)
[2019-12-08] MEDS: cefTRIAXone SOD 2 GM in D5W MINI-BAG PLUS 50 ML IV SCH (19:01)
[2019-12-08] MEDS: ADVAIR HFA 230/21MCG INHALER INH SCH (19:29)
[2019-12-08] MEDS: ASPIRIN 81 MG ENTERIC TAB PO SCH (20:55)
[2019-12-08] MEDS: DOCUSATE SODIUM 100 MG CAP PO SCH (20:56)
[2019-12-08] MEDS: DICYCLOMINE 10 MG CAP PO SCH (20:56)
[2019-12-08] MEDS ORDERED: cefTRIAXone SOD 1 GM VIAL (J0696) IV SCH (21:00)
[2019-12-08] MEDS ORDERED: PROPRANOLOL 20 MG TAB PO SCH (21:00)
[2019-12-08 22:00] VITALS: BP 119/72
[2019-12-08 22:04] VITALS: BP 106/82
[2019-12-08] MEDS: SODIUM CHLORIDE 0.9% INJ 10 ML SYR IV PRN (23:04)
[2019-12-09] VITALS (7 sets, daily range): BP systolic 81–128; BP diastolic 56–76
[2019-12-09] MEDS: AMPICILLIN SOD 2 GM in D5W MINI-BAG PLUS 100 ML IV SCH ×6 (00:49→21:23)
[2019-12-09] MEDS: SODIUM CHLORIDE 0.9% INJ 10 ML SYR IV PRN ×3 (01:45→22:21)
[2019-12-09] MEDS: ALBUTEROL 90 MCG/ACT 8GM HFA INHALER INH PRN (03:00)
[2019-12-09] MEDS ORDERED: LEVALBUTEROL 1.25 MG/0.5 ML CONCENTRATE NEB NEB ONE ×2 (04:00→22:30)
[2019-12-09 06:15] LABS: HEMATOCRIT 30.7 % (42.0-52.0); HEMOGLOBIN 9.4 g/dl (13.5-17.5); MEAN CORPUSCULAR HEMOGLOBIN 33.7 pg (27.0-33.0); MEAN CORPUSCULAR HGB CONC 30.6 g/dl (32.0-36.5); PLATELET COUNT, AUTOMATED 340 10^3/uL (150-450); RED BLOOD COUNT 2.79 10^6/uL (4.30-6.10); WHITE BLOOD COUNT 8.6 10^3/uL (4.0-10.0)
[2019-12-09] MEDS: cefTRIAXone SOD 2 GM in D5W MINI-BAG PLUS 50 ML IV SCH ×2 (06:38→18:09)
[2019-12-09 06:41] LABS: ALT/SGPT 47 U/L (12-78); BILIRUBIN,TOTAL 0.4 MG/DL (0.2-1.0); BLOOD UREA NITROGEN 22 MG/DL (7-18); CALCIUM LEVEL 8.4 MG/DL (8.8-10.2); CARBON DIOXIDE LEVEL 29 MEQ/L (21-32); CHLORIDE LEVEL 107 MEQ/L (98-107); CREATININE FOR GFR 0.66 MG/DL (0.70-1.30); GLOMERULAR FILTRATION RATE > 60.0 (>35); GLUCOSE, FASTING 118 MG/DL (70-100); MAGNESIUM LEVEL 2.1 MG/DL (1.8-2.4); POTASSIUM SERUM 3.7 MEQ/L (3.5-5.1); SODIUM LEVEL 141 MEQ/L (136-145); TOTAL PROTEIN 5.9 GM/DL (6.4-8.2)
[2019-12-09] MEDS: ADVAIR HFA 230/21MCG INHALER INH SCH ×2 (07:44→20:06)
[2019-12-09] MEDS: SODIUM CHLORIDE 0.9% INJ 10 ML SYR IV SCH ×2 (09:22→18:09)
[2019-12-09] MEDS: ASPIRIN 81 MG ENTERIC TAB PO SCH ×2 (09:22→21:22)
[2019-12-09] MEDS: TERAZOSIN 5 MG CAP PO SCH (09:23)
[2019-12-09] MEDS: METOPROLOL TART 12.5 MG PER 1/2 TAB PO SCH ×2 (09:23→21:23)
[2019-12-09] MEDS: POTASSIUM CHLORIDE 10 MEQ SR TABLET PO SCH (09:23)
[2019-12-09] MEDS: DICYCLOMINE 10 MG CAP PO SCH ×2 (09:24→21:22)
[2019-12-09] MEDS: RIVAROXABAN 20 MG TAB (XARELTO) PO SCH (09:24)
[2019-12-09] MEDS: DOCUSATE SODIUM 100 MG CAP PO SCH ×2 (09:24→21:23)
--- NOTE | 2019-12-09 10:50 | IPNPDOC ---
Date Seen The patient was seen on 12/09/19. Progress Note SUBJECTIVE: Patient is seen and examined at the bedside this morning. Nursing reported that overnight he dropped into the 30s HR and complained of "tingling" all over his body during which he was afraid he would pass out. This lasted only a few minutes. Otherwise, this morning he notes no changes to his breathing and he feels no difference to his lower extremity swelling. He denies any nausea, vomiting, diarrhea or constipation. OBJECTIVE PHYSICAL EXAMINATION: VITAL SIGNS: Please see below. GENERAL APPEARANCE: Laying in bed, very cachectic, appears stated age, no acute distress, calm, cooperative HEENT: EOMI, PERRLA, neck is supple with no thyromegaly or lymphadenopathy, very poor dentition CHEST: There is a purpuric rash on the R shoulder extending up to the neck. A line of demarcation has already been drawn and rash has regressed from the area of this line. RESPIRATORY: Crackles are appreciated bilaterally, with no other adventitious breath sounds CARDIOVASCULAR: JVD is is noted to be about 9 cm above this sternal angle, irregularly irregular rhythm , 4/6 systolic ejection murmur heard very loudly in the right upper sternal border that radiates to the carotids. PMI is displaced ABDOMEN: Soft, nontender to palpation in all four quadrants, no masses/organomegaly EXTREMITIES: no clubbing, cyanosis or edema noted NEUROLOGICAL: Cranial nerves II through XII are intact, No obvious focal deficits PSYCHIATRIC: normal mood/affect Skin: No rashes or ulcers. LN: No significant cervical or inguinal lymphadenopathy LABORATORY DATA: See below. IMAGING: CXR: There is cardiomegaly. There is vascular congestion. There are bibasilar infiltrates and effusions. There is calcification of the thoracic aorta. A right arm Peripherally inserted central catheter (PICC) line is seen with the tip in the superior vena cava. IMPRESSION: Findings consistent with cardiomegaly, congestive heart failure with bibasilar infiltrates and effusions. MICROBIOLOGY: Please see below. ASSESSMENT: This is an 79-year-old male with history of severe aortic stenosis and congestive heart failure who presents with shortness of breath, weakness and lower extremity swelling concerning for congestive heart failure exacerbation versus worsening aortic stenosis. He will be admitted to the medical surgical floor for diuresis and further workup at this time. PLAN: 1. Decompensated Congestive heart failure, NYHA class III: Likely etiology is severe aortic stenosis. Left ventricular ejection fraction 30-35%. -Patient was started on 40mg IV lasix yesterday and diuresed about ~3L. IV Lasix stopped due to hypotension and episode of bradycardia overnight. Patient appears euvolemic this morning -Strict I/O with 2g Sodium diet, daily weights -Cardiology (Dr. Morillo) consulted. Appreciate recommendations -RVP negative 2. Severe aortic stenosis: AV mean gradient 78 mmHg -Will take caution with diuresis so as to be excessive in decreasing preload, which could worsen his aortic stenosis -Patient is known candidate for TAVR, but does not qualify at this time given his bacteremia and poor functional status. No indication for transfer at this time. 3. Chronic Atrial fibrillation, non-valvular: -Continue Xarelto -Propanolol stopped; Patient was started on 12.5mg PO Metoprolol Tartrate BID for better rate control. Hold parameters in place. 4. History of Enterococcus bacteremia: -Currently on 33 days of IV Ampicillin and IV Rocephin. Will continue via PICC line -No infectious symptoms at this time. Will obtain records from ID specialist at [facility]. -Colonoscopy negative, no findings of endocarditis on TUNG -Repeat blood cultures pending -ID consulted. Appreciate recommendations. 5. Mobile clot in Left atrial appendage: received IV heparin at [facility] -Currently on Xarelto 6. Urinary retention: -Continue home Terazosin 7. COPD: -Continue home inhalers -Started Xoponex due to tachycardia 7. Deconditioning: -PT/OT ordered 8. Chronic anemia: -Will order B12 level -Hgb stable at this moment 9. Severe protein calorie malnutrition: -Albumin found to be 2.0 -Patient has had 60 lb weight loss over the past several months -Speech therapy consult for swallowing -Patient will need dietary consult DISPO: Pending clinical improvement in SOB. VS, I&O, 24H, Fishbone Vital Signs/I&O Vital Signs Date Time Temp Pulse Resp B/P (MAP) Pulse Ox O2 Delivery O2 Flow Rate FiO2 12/09/19 09:33 78 128/57 (80) 12/09/19 06:00 97.5 17 96 Room Air I&O- Last 24 Hours up to 6 AM 12/09/19 06:00 Intake Total 1480 ml Output Total 2875 ml Balance -1395 ml Laboratory Data 24H LABS Laboratory Tests 2 12/08/19 11:35: Immature Granulocyte % (Auto) 0.8, Neutrophils (%) (Auto) 82.0H, Lymphocytes (%) (Auto) 8.1L, Monocytes (%) (Auto) 8.1H, Eosinophils (%) (Auto) 0.6, Basophils (%) (Auto) 0.4, Neutrophils # (Auto) 5.9, Lymphocytes # (Auto) 0.6L, Monocytes # (Auto) 0.6, Eosinophils # (Auto) 0.0, Basophils # (Auto) 0.0, Nucleated Red Blood Cells % (auto) 1.4H, Erythrocyte Sedimentation Rate 52H, Prothrombin Time 39.1H, Prothromb Time International Ratio 4.00, Blood Gas Bicarbonate Standard 29.3, Venous Blood pH 7.393, Venous Blood Partial Pressure CO2 53.4H, Venous Blood Partial Pressure O2 37.9, Venous Blood Total Carbon Dioxide 33.5H, Venous Blood HCO3 31.8H, Venous Blood Oxygen Saturation 64.6, Venous Blood Base Excess 5.9H, Anion Gap 5L, Glomerular Filtration Rate > 60.0, Lactic Acid Level 2.5*H, Calcium Level 8.1L, Total Bilirubin 0.2, Direct Bilirubin 0.2, Aspartate Amino Transf (AST/SGOT) 42H, Alanine Aminotransferase (ALT/SGPT) 49, Alkaline Phosphatase 102, Total Creatine Kinase 24L, Creatine Kinase MB 1.7, Creatine Kinase MB Relative Index 7.08H, Troponin I 0.23H, UU-Nwb-B-Type Natriuretic Peptide 98009T, Total Protein 5.8L, Albumin 2.0L, Albumin/Globulin Ratio 0.53L, Thyroid Stimulating Hormone (TSH) 1.450 12/08/19 16:12: Lactic Acid Followup at 4 Hours 2.7*H 12/08/19 18:15: Vitamin B12 Level 717 12/09/19 05:18: Nucleated Red Blood Cells % (auto) 1.8H, Anion Gap 5L, Glomerular Filtration Rate > 60.0, Calcium Level 8.4L, Total Bilirubin 0.4#, Aspartate Amino Transf (AST/SGOT) 32, Alanine Aminotransferase (ALT/SGPT) 47, Alkaline Phosphatase 117, Total Protein 5.9L, Albumin 2.0L, Albumin/Globulin Ratio 0.51L, Magnesium Level 2.1 CBC/BMP Laboratory Tests 12/08/19 11:35 12/09/19 05:18 Microbiology Microbiology 12/08/19 Blood Culture, Received Pending 12/08/19 Blood Culture, Received Pending 12/08/19 Respiratory Virus Panel (PCR) (JUNE) - Final, Complete 12/08/19 Blood Culture, Received Pending GME ATTESTATION GME ATTESTATION My faculty preceptor for this patient encounter was physically present during the encounter and was fully available. All aspects of the patient interview, examination, medical decision making process, and medical care plan development were reviewed and approved by the faculty preceptor. The faculty preceptor is aware and concurs with the plan as stated in the body of this note and will attest to such by his/her cosignature. ATTENDING NOTE I, Adriana Lane, have independently examined this patient and performed my own physical exam, as well as reviewed the documentation. I have discussed in detail with the resident / student the findings and plan of treatment as documented by the resident / student. I agree with their findings and treatment plan. I will continue to follow the patient during this hospital stay. NANCIE OWEN MD Dec 09, 2019 10:[address] DO Dec 09, 2019 13:13
--- NOTE | 2019-12-09 11:15 | CR ---
DATE OF CONSULTATION: 12/09/2019 DATE OF ADMISSION: 12/08/2019 REASON FOR CONSULTATION: Sick sinus syndrome ? versus aortic stenosis in a heart failure setting management. CONSULTING PHYSICIAN: Dr. Rouse HISTORY OF PRESENT ILLNESS: This is a very pleasant, 79-year-old male who presented to the emergency room (ER) on 12/08/2019 for shortness of breath, weakness and increased bilateral leg swelling. He is currently living at [facility]. He was recently discharged from [facility]. He states when he was at [facility] he had a diagnosis of recurrent pneumonia and bacteremia currently on IV antibiotics which was started on 12/03/2019 and he will take it for 30 days until 12/04/2019. He states when he was at [facility] in [place] he had multiple testing done to find the possible source of the bacteremia. He grew Enterococcus faecalis, but they did not find anything. When he had a transthoracic echocardiogram (TTE) and a transesophageal echocardiogram (TUNG) done, they did see that he had severe aortic stenosis, but because of the current bacteremia he was not a candidate for a transcatheter aortic valve replacement (TAVR) at this current time. They advised for him to complete the antibiotics as prescribed and then once he is healthier they will consider placing the TAVR. He notes that he was doing very well at rehabilitation at [facility], but did notice when he stands up all of a sudden he would feel extremely dizzy and get nauseous. He noted these symptoms would improve when he laid down flat on his bed. He denies having any symptoms of lightheadedness or dizziness while he is at rest. He never noticed any symptoms of numbing sensation or shortness of breath when he is sleeping. While he was admitted at [facility], he was given a total of 80 mg of furosemide and he diuresed roughly 2.2 liters of urine. He tolerated that well, but early this morning it was recorded on telemetry that the patient was breathing down to the 30s. At that time, he was experiencing numbing sensation in his upper extremities and he felt sick. He notes that this lasted only for a few seconds and his telemetry reading showed that he was back to atrial fibrillation with a rate of 90 to 100. He had two episodes of bradycardia early this morning around 6:00 a.m. EKG was ordered at bedside which is currently pending when we evaluated the patient. Dr. Morillo's team was then called for management for possible sick jeff syndrome and aortic stenosis management in the setting of heart failure. PAST MEDICAL HISTORY: Severe aortic valve stenosis. Atrial fibrillation. Obstructive pulmonary disease, not oxygen dependent. Hypertension. Irritable bowel syndrome. Diabetes, borderline ?. 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 History of prostate cancer. History of Anemia Severe protein calorie malnutrition. Cervical spinal stenosis. PAST SURGICAL HISTORY: Back surgery. Transurethral resection of the prostate (TURP). Appendectomy. Cholecystectomy. Colonoscopy, last one November 2019 at [facility]. Skin cancer right shoulder removal July 2014. Tonsillectomy. Heart catheterization in 10/2017 C3-4 laminoplasty in March 2018. SOCIAL HISTORY: Former pipe smoker greater than 50 years, quit 2 months prior when initial symptoms started with pneumonia. Denies any alcohol use or any drug abuse. Code status: DO NOT RESUSCITATE (DNR), DO NOT INTUBATE (DNI). Moved from [facility] 60+ years ago, lives on [address] with his . States he is independent and able to do all his activities of daily living, cut currently lives at [facility] for rehabilitation only. FAMILY HISTORY: Reviewed. Father at 94 due to heart attack. Mother at 95 due to heart attack. Siblings are alive and healthy. He has four sisters, one son and one daughter. REVIEW OF SYSTEMS: Constitutional: Denies any fevers, chills, or night sweats. HEENT: Admits to blurry vision, wears glasses which broke a couple of days ago. He will see far with his baseline. Admits to some hearing loss bilaterally, denies any ringing in the ears, trouble swallowing or sinus problems. Cardiovascular: Denies any palpitations or shortness of breath at this current time. Had edema, improving in the lower extremities after diuretics. Respiratory: Admits to a dry cough. No shortness of breath or trouble breathing. Genitourinary: Denies any dysuria, increased urinary frequency or suprapubic tenderness. Musculoskeletal: Admits to just some generalized fatigue, but denies any joint swelling or joint pain more than normal from baseline. Gastrointestinal: Denies any abdominal pain, nausea, vomiting, diarrhea. Admits to a 50 pound weight loss in the last 1 year, unintentional. Skin: Has a skin rash on his right upper extremity above his shoulder that appeared suddenly early this week. Denies any trauma to the area or any open wounds. Neurologic: Denies any focal deficits. Admits to having numbing and tingling sensation bilaterally in the upper extremities. Some at baseline, but a little bit more pronounced this morning, which has resolved. Psychiatric: Denies any delusions, visual hallucinations. Appropriate mood at this current time. Endocrine: History of borderline diabetes, but denies any polyuria, polydipsia or cold or heat intolerance. Hematologic: Admits to easy bruising in the upper extremity, currently on Xarelto for large clot in his left atrial appendage, but no lymphadenopathy anywhere. PHYSICAL EXAMINATION: Vitals: Temperature 97.5, pulse 79, respirations 17, blood pressure 104/69 (MAP 81), pulse oximetry 96% on room air. General: This is a very pleasant, 79-year-old male who appears older than stated age who is very cachectic appearing, but appropriately answering questions, not using any accessory muscles to answer questions. Alert and oriented times three. HEENT: Atraumatic, normocephalic. Pupils equal round and reactive. Not the best dentition. No lymphadenopathy noted. No sinus tenderness noted. No jugular venous distention (JVD) noted. Prominent sternocleidomastoid muscles (SCM) bilaterally in the neck and clavicular. Bilateral temporal wasting appreciated as well. Respiratory: Clear to auscultate bilaterally. No audible wheezing, rhonchi or rales. Crackles from yesterday have resolved per primary team, they were with us at bedside. Cardiovascular: 3/6 decrescendo/crescendo murmur appreciated at the right intercostal space that radiates to the carotid. Irregularly irregular, but currently controlled with no rubs or gallops noted. Chest: Very prominent ribs and clavicular bones bilaterally appreciated. Abdomen: Soft. Nontender. Extremities: No lower extremity edema noted. No calf tenderness. He does have some soft tissue swelling around his ankles bilaterally, but it is not pitting edema. Right upper arm peripherally inserted central catheter (PICC) line in place, no discharge, no erythema and no tenderness to palpation. Neurologic: No focal deficits are noted. Psychiatric: Normal mood and affect. Skin: He does have an upper extremity purpura over the shoulders that is measuring about 10 cm that wraps around to the front and little purpura on the left chest wall as well. More significant on the right upper shoulder. Lymphadenopathy: Surprisingly, no cervical lymphadenopathy appreciated. LABORATORY DATA: Hematology: WBC 8.6, hemoglobin 9.4, hematocrit 30.7, platelets 340. Chemistry: Sodium 141, potassium 3.7, chloride 107, carbon dioxide 29, anion gap 5, BUN 22, creatinine 0.66, fasting glucose 118, calcium 8.4, magnesium 2.1, total bilirubin 0.4, AST 32, ALT 47, alkaline phosphatase 117. Pro-BNP 21,078. Total protein 5.9. Albumin 2.0. IMAGING: Chest x-ray from 12/08/2019 shows cardiomegaly with congestive heart failure with bibasilar infiltrates and effusions with a (PICC) line in place. ASSESSMENT: This is a very pleasant, 79-year-old male with a pertinent past medical history of severe aortic stenosis and congestive heart failure with an ejection fraction of 30-35% who presented to our emergency room for shortness of breath and was admitted for decompensated congestive heart failure. IMPRESSIONS: 1. Congestive heart failure, ejection fraction 30-35%. Currently compensated. 2. Atrial fibrillation, rate controlled, with left atrial appendage clot, currently on Xarelto and propranolol 20 mg twice a day. 3. Severe aortic stenosis, 49 mmHg mean gradient. 4. History of recurrent Enterococcus bacteremia, unknown source, currently on ampicillin and Rocephin via PICC line. 5. Sick jeff syndrome ?. 6. Urinary retention. 7. Chronic obstructive pulmonary disease. 8. Severe protein caloric malnutrition. 9. Macrocytic Anemia PLAN: From a cardiovascular standpoint, the patient currently is compensated for his heart failure. He diuresed really well with 2.2 liters yesterday after the 80 mg of furosemide in the last 24 hours. We do not recommend any more diuresing and to discontinue the furosemide. Because of his very severe aortic stenosis, he is preload dependent so we will monitor his fluid status while admitted. For his sick jeff syndrome that he had early this morning, when reviewing telemetry it happened at 6:30 which showed his lowest rate is at 30 beats per minute to a high of 120 beats per minute. We recommend discontinuing his propranolol 20 mg twice a day and switching him to metoprolol tartrate 12.5 mg twice a day and we will titrate it up pending clinical response. Continue with his Xarelto and the antibiotics as prescribed. We will also review his records from [facility] to see what all workup he has done for the possible cause of the bacteremia. I do know from reviewing his TTE and TUNG that there was no endocarditis, but he is on currently 6 weeks of IV antibiotic coverage. At this current time, will continue to follow along with the patient while is admitted. Thank you for this consultation. SONJA
[2019-12-09] MEDS ORDERED: POTASSIUM CHLORIDE 10 MEQ SR TABLET PO ONE (13:15)
[2019-12-10] MEDS: AMPICILLIN SOD 2 GM in D5W MINI-BAG PLUS 100 ML IV SCH ×3 (01:26→08:47)
[2019-12-10 02:00] VITALS: BP 128/83
[2019-12-10] MEDS: SODIUM CHLORIDE 0.9% INJ 10 ML SYR IV PRN (02:25)
[2019-12-10] MEDS ORDERED: LEVALBUTEROL 1.25 MG/0.5 ML CONCENTRATE NEB NEB ONE (04:45)
[2019-12-10] MEDS: ALBUTEROL 90 MCG/ACT 8GM HFA INHALER INH PRN (04:51)
[2019-12-10 05:50] LABS: HEMATOCRIT 30.2 % (42.0-52.0); HEMOGLOBIN 9.1 g/dl (13.5-17.5); MEAN CORPUSCULAR HEMOGLOBIN 33.3 pg (27.0-33.0); MEAN CORPUSCULAR HGB CONC 30.1 g/dl (32.0-36.5); MEAN CORPUSCULAR VOLUME 110.6 fl (80.0-96.0); PLATELET COUNT, AUTOMATED 350 10^3/uL (150-450); RED BLOOD COUNT 2.73 10^6/uL (4.30-6.10); WHITE BLOOD COUNT 8.6 10^3/uL (4.0-10.0)
[2019-12-10 06:00] VITALS: BP 113/62
[2019-12-10] MEDS: SODIUM CHLORIDE 0.9% INJ 10 ML SYR IV SCH (06:00)
[2019-12-10 06:09] LABS: ALBUMIN 2.2 GM/DL (3.2-5.2); ALT/SGPT 47 U/L (12-78); BILIRUBIN,TOTAL 0.4 MG/DL (0.2-1.0); BLOOD UREA NITROGEN 22 MG/DL (7-18); CALCIUM LEVEL 8.3 MG/DL (8.8-10.2); CARBON DIOXIDE LEVEL 30 MEQ/L (21-32); CHLORIDE LEVEL 104 MEQ/L (98-107); CREATININE FOR GFR 0.65 MG/DL (0.70-1.30); GLOMERULAR FILTRATION RATE > 60.0 (>35); GLUCOSE, FASTING 122 MG/DL (70-100); MAGNESIUM LEVEL 2.1 MG/DL (1.8-2.4); POTASSIUM SERUM 4.5 MEQ/L (3.5-5.1); SODIUM LEVEL 139 MEQ/L (136-145); TOTAL PROTEIN 5.8 GM/DL (6.4-8.2)
[2019-12-10] MEDS: cefTRIAXone SOD 2 GM in D5W MINI-BAG PLUS 50 ML IV SCH (06:15)
[2019-12-10] MEDS: RIVAROXABAN 20 MG TAB (XARELTO) PO SCH (08:49)
[2019-12-10] MEDS: DOCUSATE SODIUM 100 MG CAP PO SCH (08:49)
[2019-12-10] MEDS: DICYCLOMINE 10 MG CAP PO SCH (08:50)
[2019-12-10] MEDS: ASPIRIN 81 MG ENTERIC TAB PO SCH (08:50)
[2019-12-10] MEDS: POTASSIUM CHLORIDE 10 MEQ SR TABLET PO SCH (08:50)
[2019-12-10 08:53] VITALS: BP 114/68
[2019-12-10] MEDS: TERAZOSIN 5 MG CAP PO SCH (08:53)
[2019-12-10] MEDS: METOPROLOL TART 12.5 MG PER 1/2 TAB PO SCH (08:53)
[2019-12-10] MEDS: ADVAIR HFA 230/21MCG INHALER INH SCH (09:00)
[2019-12-10 10:00] VITALS: BP 114/64
--- NOTE | 2019-12-10 10:12 | IPN ---
DATE: 12/10/2019 SUBJECTIVE: Mr. Blake was seen and examined this morning during bedside rounds. He states that he does not feel so well because he continues to have dyspnea from doing minimal exertion around the bed. He notes that he had problems overnight and he was unable to sleep really well and would like something to help him sleep. He does note that it feels like his chest is very tight and he cannot get deep breaths in, even though he is saturating appropriately. He has gotten two treatments of Xopenex overnight, which helped him minimally. Telemetry noted that at 1:30 in the afternoon yesterday he had 20 beats of ventricular tachycardia and was given a 40 mEq dose of potassium chloride yesterday and had no other overnight events reported. His heart rate stayed between 70 to 110 and continued to be in atrial fibrillation. The patient states that he has a good appetite. He is able to eat relatively well and able to drink water with no problem. He will be working with speech therapy this morning to see if he has any aspiration problems, but he has no other complaints at this current time. PHYSICAL EXAMINATION: VITAL SIGNS: Temperature 98.7, pulse 91, respirations 19, blood pressure 113/62, MAP 79, pulse oximetry 93 to 98% on room air. During the examination, he was 98%. Input and output: Intake total 2360 mL, output total 1300 mL, balance of positive 1060 mL. He had one incontinent bowel movement yesterday. GENERAL: This is a very pleasant 79-year-old male who appears older than his stated age, who appears very cachectic, answering questions appropriately, is using accessory muscles when heart rate goes above 120, but when he is comfortable there is no accessory muscle use. Alert and oriented times three. HEENT: Atraumatic, normocephalic. Pupils are equal, round and reactive. Poor dentition. No lymphadenopathy. Trachea is midline. No jugular venous distention (JVD) noted. Prominent sternocleidomastoid muscles bilaterally. Bilateral temporal wasting. RESPIRATORY: Clear to auscultation bilaterally. No audible wheezing, rhonchi or rales appreciated. No dullness to percussion. No E to A egophony. Very good expansion. CARDIOVASCULAR: 3/6 decrescendo/crescendo murmur with no closing click appreciated in the second intercostal space on the right that radiates to the carotid. Irregularly irregular. Rate controlled with no audible rubs or gallops noted. CHEST: Very prominent ribs and clavicular bones bilaterally. ABDOMEN: Soft, nontender. EXTREMITIES: No lower extremity edema or calf tenderness. Right upper arm peripherally inserted central catheter (PICC) line in place. No discharge or erythema. NEUROLOGIC: No focal deficits. Unable to lift the right shoulder against gravity actively, but able to move with passive motion with assistance. The patient states that he is very weak in the upper muscles. Left arm with normal range of motion, able to move in all four planes without any problems. NEUROLOGIC: No acute focal deficits noted, he does have the right upper shoulder weakness, which is baseline. PSYCHIATRIC: Normal mood and affect. SKIN: Upper extremity purpura over the right shoulder measuring about 10 cm that wraps around the front and around the left chest wall, more significant on the right upper shoulder. LYMPHATICS: No cervical lymphadenopathy appreciated. LABORATORIES: WBC 8.6, hemoglobin 9.1, hematocrit 30.2, platelets 350. Chemistries: Sodium 139, potassium 4.5, chloride 104, carbon dioxide 30, BUN 22, creatinine 0.65, fasting glucose 122, calcium 8.3, magnesium 2.1. Total bilirubin 0.4, AST 27, ALT 47, alkaline phosphatase 118. IMAGING: No new imaging since admission on 12/08/2019. ASSESSMENT: This is a very pleasant 79-year-old male with a pertinent past medical history of very severe aortic stenosis, congestive heart failure (CHF) with an ejection fraction of 30 to 35% who presented to emergency room for shortness of breath and was admitted for decompensated heart failure. IMPRESSION: 1. Dyspnea secondary to severe aortic stenosis. 2. Congestive heart failure (CHF) with an ejection fraction of 30 to 35%, currently compensated. 3. Atrial fibrillation, currently rate controlled with a left atrial appendage clot, currently on Xarelto and started on metoprolol tartrate 12.5 mg twice a day. 4. History of recurrent Enterococcus bacteremia, unknown source. Currently on ampicillin, Rocephin via peripherally inserted central catheter (PICC) line. 5. Urinary retention. 6. Chronic obstructive pulmonary disease (COPD). 7. Severe protein caloric malnutrition. 8. Macrocytic anemia. PLAN: From a cardiovascular standpoint, the patient is tolerating the metoprolol tartrate 12.5 mg twice a day. Heart rate has been 94 to 110 at rest, so we will continue with the current regimen. The biggest issue we have here is the fact that he has very severe aortic stenosis that is contributing to his dyspnea. His lung examination sounds great, it is clear to auscultate. When the patient's heart rate goes above 120 from any exertion, he does become slightly hypoxic with a low of 85. Once he takes deep breaths and heart rate regulates, his hypoxemia resolves with no intervention. The underlying problem now is to get TAVR, but he is he cannot with his underlying function. Infectious disease has been consulted, and we really do appreciate the recommendations. We will continue the ampicillin and the Rocephin as prescribed for the total of 6 weeks until 01/04/2020 at this current time. Once the underlying infection has been resolved, the patient then will need to be evaluated then for TAVR. At this current time, we will continue to follow along with the patient while he is admitted. No changes will be made on his cardiac medications. SNOJA
[2019-12-10] MEDS ORDERED: LEVAINH INH (10:48)
[2019-12-10] MEDS ORDERED: METO1TAB87 PO (10:48)
[2019-12-10] MEDS ORDERED: HYDR-3363 PO (11:19)
--- NOTE | 2019-12-10 13:21 | DS.PDOC ---
Discharge Summary General Date of Admission Dec 08, 2019 at 14:11 Date of Discharge 12/10/2019 Primary Care Physician: Toney Hercules M.D. Attending Physician: ADRIANA LANE DO Specialist/Consultants Involve: Liu Morillo MD Discharge Summary PROCEDURES PERFORMED DURING STAY: [None]. ADMITTING DIAGNOSES: 1. 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 Left ventricular ejection fraction 30-35%. 2. Severe aortic stenosis 3. E. faecalis bacteremia DISCHARGE DIAGNOSES: 1. Severe aortic stenosis 2. E. faecalis bacteremia 3. 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 Left ventricular ejection fraction 30-35%. COMPLICATIONS/CHIEF COMPLAINT: CHF. HISTORY OF PRESENT ILLNESS: Nacho Blake is an 79 YO with recurrent PNA, recent history of bacteremia on IV antibiotics, and severe aortic stenosis who presents from [facility] rehab with shortness of breath, weakness, increased leg swelling. The patient reports that he was recently hospitalized in [facility] (10/21 - 11/01) for recurrent pneumonia. He notes that he has had pneumonia at least 3 separate times in the past 6 months. On that hospitalization, he was found to have bacteremia due to enterococcus faecalis. Source was not found--patient underwent UGI endoscopy and colonoscopy, TTE and TUNG and no cancer or endocarditis was found. He is currently undergoing IV antibiotic therapy for a total of 33 days. In addition, he is undergoing rehabilitation in hopes of getting a TAVR. The patient reports that he only gets short of breath when he is undergoing physical therapy and when he is moving in general. Otherwise at rest he has no difficulty breathing. He himself has noticed any increased leg swelling. He has no known sick contacts. He sleeps on 2 pillows and is able to lay flat. Of note, he has lost over 60 pounds in the past 3 months. HOSPITAL COURSE: Patient was admitted with SOB and lower extremity swelling concerning for congestive heart failure exacerbation. Patient has known severe aortic stenosis and resulting shortness of breath and dyspnea. Patient is not a candidate for TAVR at this time as he is completing a course of IV antibiotics (Ampicillin and Rocephin) for empiric treatment of E. faecalis endocarditis. End date is 01/04/2020. Patient was given 40mg IV lasix BID. He diuresed about 2L and this was stopped. On HD #2 he was evaluated by cardiology, who added Metoprolol tartrate 12.5mg BID for medical management of AF. Patient did intermittently complain of shortness of breath and dyspnea, but this was attributed to his aortic stenosis. He never required more O2 and vitals remained stable. The patient was also seen by infectious disease, who agreed with treatment plan set by ID at [facility]. Patient was discharged back to [facility] rehab in stable state. DISCHARGE MEDICATIONS: Please see below. ALLERGIES: Please see below. PHYSICAL EXAMINATION ON DISCHARGE: VITAL SIGNS: Please see below. GENERAL APPEARANCE: Laying in bed, very cachectic, appears stated age, no acute distress, calm, cooperative HEENT: EOMI, PERRLA, neck is supple with no thyromegaly or lymphadenopathy, very poor dentition CHEST: There is a purpuric rash on the R shoulder extending up to the neck. A line of demarcation has already been drawn and rash has regressed from the area of this line. RESPIRATORY: Crackles are appreciated bilaterally, with no other adventitious breath sounds CARDIOVASCULAR: JVD is is noted to be about 9 cm above this sternal angle, irregularly irregular rhythm , 4/6 systolic ejection murmur heard very loudly in the right upper sternal border that radiates to the carotids. PMI is displaced ABDOMEN: Soft, nontender to palpation in all four quadrants, no masses/organomegaly EXTREMITIES: no clubbing, cyanosis or edema noted NEUROLOGICAL: Cranial nerves II through XII are intact, No obvious focal deficits PSYCHIATRIC: normal mood/affect Skin: No rashes or ulcers. LN: No significant cervical or inguinal lymphadenopathy LABORATORY DATA: See below. LABORATORY DATA: Please see below. IMAGING: CXR: There is cardiomegaly. There is vascular congestion. There are bibasilar infiltrates and effusions. There is calcification of the thoracic aorta. A right arm Peripherally inserted central catheter (PICC) line is seen with the tip in the superior vena cava. IMPRESSION: Findings consistent with cardiomegaly, congestive heart failure with bibasilar infiltrates and effusions. PROGNOSIS: poor ACTIVITY: [As tolerated]. DIET: 2g sodium DISCHARGE PLAN: rehabilitation at [facility] DISPOSITION: [facility]. DISCHARGE INSTRUCTIONS: 1. Patient is to complete course of IV antibiotics until stop date 01/04/2020 2. Continue rehabilitation at [facility] ITEMS TO FOLLOWUP ON ON OUTPATIENT: 1. Follow up with ID and Cardiology at [facility] DISCHARGE CONDITION: [Stable]. TIME SPENT ON DISCHARGE: Greater than 40 minutes. Vital Signs/I&Os Vital Signs Date Time Temp Pulse Resp B/P (MAP) Pulse Ox O2 Delivery O2 Flow Rate FiO2 12/10/19 10:00 98.4 92 19 114/64 (81) 96 Room Air I&O- Last 24 Hours up to 6 AM 12/10/19 06:00 Intake Total 1520 ml Output Total 900 ml Balance 620 ml Laboratory Data Labs 24H Laboratory Tests 2 12/10/19 05:22: Nucleated Red Blood Cells % (auto) 2.2H, Anion Gap 5L, Glomerular Filtration Rate > 60.0, Calcium Level 8.3L, Magnesium Level 2.1, Total Bilirubin 0.4, Aspartate Amino Transf (AST/SGOT) 27, Alanine Aminotransferase (ALT/SGPT) 47, Alkaline Phosphatase 118H, Total Protein 5.8L, Albumin 2.2L, Albumin/Globulin Ratio 0.61L CBC/BMP Laboratory Tests 12/10/19 05:22 Microbiology Microbiology 12/08/19 Blood Culture - Preliminary, Resulted No growth after 24 hours . All specim... 12/08/19 Blood Culture - Preliminary, Resulted No Growth after 48 hours. All Specime... 12/08/19 Respiratory Virus Panel (PCR) (JUNE) - Final, Complete 12/08/19 Blood Culture - Preliminary, Resulted No Growth after 48 hours. All Specime... Discharge Medications Scheduled Ampicillin Sodium (Ampicillin Sodium) 1 Gm Vial.port, 2 GM IV Q4H, (Reported) FOR 26 DAYS 0500,0900,1300,1700,2100 START 12/10/19 END 01/04/20 Aspirin (Aspirin) 81 Mg Tab.chew, 81 MG PO BID, (Reported) Ceftriaxone Sodium (Ceftriaxone) 1 Gm Vial, 2 GRAM IV BID, (Reported) 0600 AND 1800 START 12/10/19 END 01/04/20 Dicyclomine HCl (Dicyclomine HCl) 10 Mg Cap, 10 MG PO BID, (Reported) Fluticasone Propion/Salmeterol (Advair Hfa 230-21 Mcg Inhaler) 12 Gm Hfa.aer.ad, 2 PUFF INH BID, (Reported) Furosemide (Furosemide) 40 Mg Tablet, 40 MG PO DAILY, (Reported) Metoprolol Tartrate (Metoprolol Tartrate) 25 Mg Tablet, 12.5 MG PO BID, (Reported) HOLD IF AP <60 AND SBP <100 Potassium Chloride (Potassium Chloride) 10 Meq Tab.er.prt, 10 MEQ PO DAILY, (Reported) Rivaroxaban (Xarelto) 20 Mg Tablet, 20 MG PO DAILY, (Reported) Terazosin HCl (Terazosin HCl) 5 Mg Cap, 5 MG PO DAILY, (Reported) Scheduled PRN Acetaminophen (Acetaminophen) 325 Mg Tab, 650 MG PO Q4H PRN for PAIN / FEVER, (Reported) Albuterol Sulfate (Albuterol Sulfate) 2.5 Mg/0.5 Ml Vial.neb, 2.5 MG INH Q6H PRN for SHORTNESS OF BREATH, (Reported) Bisacodyl (Bisacodyl) 10 Mg Supp.rect, 10 MG TN DAILY PRN for CONSTIPATION, (Reported) Levalbuterol Hydrochloride (Xopenex Hfa) 15 Gm Hfa.aer.ad, 2 PUFF INH Q4H PRN for WHEEZING, (Reported) Magnesium Hydroxide (Milk of Magnesia) 400 Mg/5 Ml Oral.susp, 30 ML PO DAILY PRN for CONSTIPATION, (Reported) Sodium Phosphate,[place]-Dibasic (Enema) 133 Ml Enema, 1 TAYLOR TN DAILY PRN for CONSTIPATION, (Reported) Allergies Coded Allergies: meperidine (Verified Adverse Reaction, Mild, vomiting, 12/13/19) GME ATTESTATION GME ATTESTATION My faculty preceptor for this patient encounter was physically present during the encounter and was fully available. All aspects of the patient interview, examination, medical decision making process, and medical care plan development were reviewed and approved by the faculty preceptor. The faculty preceptor is aware and concurs with the plan as stated in the body of this note and will attest to such by his/her cosignature. ATTENDING NOTE I, Adriana Lane, have independently examined this patient and performed my own physical exam, as well as reviewed the documentation. I have discussed in detail with the resident / student the findings and plan of treatment as documented by the resident / student. I agree with their findings and treatment plan. NANCIE OWEN MD Dec 10, 2019 13:[address] DO Dec 14, 2019 12:07
--- NOTE | 2019-12-10 21:07 | CR ---
DATE OF CONSULTATION: 12/09/2019 I was asked to consult by hospitalist for followup on antibiotic management for Enterococcus faecalis bacteremia. Case was not dictated until today because I was waiting for the records from [facility] infectious disease consultation. Consult was reviewed. Mr. Blake is an 79-year-old gentleman with a history of acute on chronic congestive heart failure, ejection fraction of 30-35% with severe aortic stenosis awaiting transcatheter aortic valve replacement (TAVR). The patient was hospitalized at [facility] from 10/21/2019 and discharged on 11/01/2019, when he presented with congestive heart failure and Enterococcus faecalis bacteremia with a positive urine culture. 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 Repeat were negative on 10/24/2019. The patient had a transesophageal echocardiogram done on 10/27/2019, which was negative for endovascular infection and therefore the patient was treated with a total of 10 days of intravenous (IV) antibiotics, initially with Zosyn, then ampicillin IV. He also had pneumococcus pneumonia, had a positive sputum culture and the patient was discharged to [facility] for rehabilitation with a Dolan catheter in place. He was sent back from [facility] on 11/20/2019, which was 19 days after his discharge and had again recurrent Enterococcus faecalis bacteremia. On 11/18/2019, blood cultures were positive. He was also found to have a right middle lobe pneumonia and he had been treated at [facility] with Zosyn, vancomycin and Levaquin. At [facility], he had another transesophageal echocardiogram, which was again negative. CT abdomen and pelvis showed a left inguinal hernia with small bowel without obstruction, cardiomegaly. He had a small cyst in his kidneys. There was no hydronephrosis. The patient had a colonoscopy/endoscopy done by Dr. Patricia Ellington, which did not show any evidence of malignancy. He was discharged now to [facility] for rehabilitation, continued IV antibiotics in preparation for his aortic valve replacement. His antibiotics are ampicillin 2 grams IV every 4 hours with Rocephin 2 grams IV every 12 hours. His anticipated treatment was going to be six weeks with end of therapy being . His transesophageal echocardiogram (TUNG) was done on 11/26/2019, was negative for vegetation in setting of severe aortic stenosis and his blood cultures were sterile on 11/23/2019. He came in to [facility] because of increasing shortness of breath and lower extremity edema. PAST MEDICAL HISTORY: Significant for: 1. Severe aortic stenosis. 2. Atrial fibrillation. 3. History of prostate cancer. 4. Acute on chronic congestive heart failure. 5. Chronic obstructive pulmonary disease (COPD). 6. Hypertension. 7. Spinal stenosis. 8. Recurrent Enterococcus faecalis bacteremia on 10/21/2019 and 11/18/2019. 9. Tremors. PAST SURGICAL HISTORY: 1. Appendectomy. 2. Back surgery. 3. Cardiac catheterization done by Dr. José Miguel Vazquez on 11/19/2017. 4. Cholecystectomy. 5. Mastoid surgery. 6. Prostate seeds for radiation. 7. Tonsillectomy. MEDICATIONS: - ampicillin 2 grams IV every 4 hours - Rocephin 2 grams IV every 12 hours - levalbuterol nebulizer as needed - potassium 10 mEq by mouth daily - metoprolol 12.5 mg by mouth twice a day - terazosin 5 mg by mouth daily - Xarelto 20 mg by mouth daily - heparin through his peripherally inserted central catheter (PICC) line - docusate 100 mg by mouth twice a day - aspirin 81 mg daily - Tylenol as needed. LABORATORY DATA: White count is 8.6, hemoglobin 9.4, hematocrit 30.7, platelets 340. Erythrocyte sedimentation rate 52. Sodium 141, potassium 3.7, chloride 107, bicarbonate 29, BUN 22, creatinine 0.66, glucose 118, calcium 8.4, magnesium 2.1. Bilirubin 0.4, AST 32, ALT 47, alkaline phosphatase 117, total protein 5.9, albumin 2. Vitamin B12 717. Lactic acid was 2.7. Blood cultures done on 12/08/2019 times three sets were no growth after 48 hours. Respiratory panel was negative. Chest x-ray 12/08/2019 showed cardiomegaly, congestive heart failure with bibasilar infiltrates and effusions. PHYSICAL EXAMINATION: He is a frail gentleman in no acute distress, alert, oriented times three, pleasant, slightly short of breath with conversation. Temperature is 97.3, pulse 95, respirations 17, blood pressure 122/60, oxygen saturation 95% on room air. HEART: Normal S1, S2, with a holosystolic murmur 3/6 radiating to the axilla. ABDOMEN: Soft, nontender. No hepatosplenomegaly. No masses appreciated. EXTREMITIES: Osteoarthritic fingers. No petechiae or emboli noted . +2 ankle edema bilaterally. Oropharynx with poor dentition. Tongue midline. No thrush. No lesion. Neck is supple without adenopathy. NEUROLOGIC EXAM: Alert, oriented times three. Moves all extremities. With a normal affect. 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 He will be treated with a six week course of ampicillin and Rocephin, after which he will be able to have hopefully an aortic valve replacement. PLAN: Continue same management, ampicillin 2 grams IV every 4 hours, Rocephin 2 grams IV every 12 hours. Do not change antibiotics. End of therapy will be 01/04/2020. Monitor labs weekly with complete blood count (CBC), complete metabolic panel (CMP), CRP, erythrocyte sedimentation rate. The patient, from an infectious disease standpoint, is stable and whenever cardiology clears him, he could go back to [facility] to finish his antibiotics.
--- NOTE | 2019-12-11 00:38 | ECGEPIP ---
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 PVCs were present Electronically Signed on 12-11-2019 0:38:16 EDT by Mitchel Good
== END 2019-12-10 12:14 | DRG 291 ==
LOC: M ED 10:56 → EDBD 10:56 → M ED INP 14:11 → ENRESERV 14:29 → M MSPAV 16:47
PROVIDERS: ADMIT Internal Medicine; ATTEND Internal Medicine
DX: I11.0 Hypertensive heart disease with heart failure (principal); E43 Unspecified severe protein-calorie malnutrition; I48.20 Chronic atrial fibrillation, unspecified; R78.81 Bacteremia; I50.33 Acute on chronic diastolic (congestive) heart failure; J44.9 Chronic obstructive pulmonary disease, unspecified; I35.0 Nonrheumatic aortic (valve) stenosis; K58.9 Irritable bowel syndrome, unspecified; D64.9 Anemia, unspecified; Z66 Do not resuscitate; M48.02 Spinal stenosis, cervical region; D53.9 Nutritional anemia, unspecified; R33.9 Retention of urine, unspecified; B95.2 Enterococcus as the cause of diseases classified elsewhere; Z85.46 Personal history of malignant neoplasm of prostate; Z85.828 Personal history of other malignant neoplasm of skin; Z90.49 Acquired absence of other specified parts of digestive tract; Z87.01 Personal history of pneumonia (recurrent); Z87.891 Personal history of nicotine dependence; Z79.01 Long term (current) use of anticoagulants; Z79.82 Long term (current) use of aspirin; Z88.8 Allergy status to other drugs, medicaments and biological substances; Z79.899 Other long term (current) drug therapy

== ENCOUNTER → 2019-12-08 | Outpatient (REF) ==
[~2019-12-08] MED LIST changes: +HYDR-3363 PO; +LEVAINH INH; +METO1TAB87 PO
[2019-12-08 09:54] LABS: HEMATOCRIT 29.6 % (42.0-52.0); HEMOGLOBIN 8.9 g/dl (13.5-17.5); MEAN CORPUSCULAR HEMOGLOBIN 33.3 pg (27.0-33.0); MEAN CORPUSCULAR HGB CONC 30.1 g/dl (32.0-36.5); MEAN CORPUSCULAR VOLUME 110.9 fl (80.0-96.0); PLATELET COUNT, AUTOMATED 329 10^3/uL (150-450); RED BLOOD COUNT 2.67 10^6/uL (4.30-6.10); WHITE BLOOD COUNT 7.8 10^3/uL (4.0-10.0)
== END ==
PROVIDERS: ATTEND Family Medicine
DX: D69.2 Other nonthrombocytopenic purpura (principal)

== ENCOUNTER 2019-12-13 15:58 | Inpatient (IN) | payer MEDICARE ==
[~2019-12-13] VITALS: Ht 172.7 cm; Wt 86.5 kg
[~2019-12-13 15:58] MED LIST changes: -ALB2.5NEB INH; -ASPI81CH33 PO
[2019-12-13] MEDS ORDERED: FUROSEMIDE 100 MG/10 ML VIAL (J1940) IV ONE (16:30)
[2019-12-13] MEDS ORDERED: LEVAINH INH (16:54)
[2019-12-13] MEDS ORDERED: ASPI81CH33 PO (16:54)
[2019-12-13] MEDS ORDERED: ALB2.5NEB INH (16:54)
[2019-12-13] MEDS ORDERED: METO1TAB87 PO (16:54)
--- NOTE | 2019-12-13 17:13 | REP ---
CHEST, SINGLE VIEW: Single view of the chest is performed and compared to prior study of 12/08/2019. There is cardiomegaly with vascular congestion. There are bibasilar infiltrates and effusions. Findings are similar to the prior study, although there does appear to be mild increase in the amount of right pleural fluid. Right arm PICC line is again noted with the tip in the superior vena cava. Electronically Signed by Fred Redding MD 12/16/2019 04:48 P
[2019-12-13 17:22] LABS: BASO % 0.2 % (0.0-1.0); HEMATOCRIT 30.1 % (42.0-52.0); LYMPH # 0.5 10^3/uL (1.5-5.0); LYMPH % 4.9 % (24.0-44.0); MEAN CORPUSCULAR HEMOGLOBIN 33.5 pg (27.0-33.0); MEAN CORPUSCULAR HGB CONC 29.9 g/dl (32.0-36.5); MEAN CORPUSCULAR VOLUME 111.9 fl (80.0-96.0); MONO # 0.9 10^3/uL (0.0-0.8); MONO % 8.6 % (0.0-5.0); NEUTROPHILS % 84.8 % (36.0-66.0); PLATELET COUNT, AUTOMATED 293 10^3/uL (150-450); RED BLOOD COUNT 2.69 10^6/uL (4.30-6.10); WHITE BLOOD COUNT 10.6 10^3/uL (4.0-10.0)
[2019-12-13 17:58] LABS: ALBUMIN 2.2 GM/DL (3.2-5.2); ALT/SGPT 265 U/L (12-78); BILIRUBIN,DIRECT 0.4 MG/DL (0.0-0.2); BILIRUBIN,TOTAL 0.6 MG/DL (0.2-1.0); BLOOD UREA NITROGEN 31 MG/DL (7-18); CALCIUM LEVEL 8.2 MG/DL (8.8-10.2); CARBON DIOXIDE LEVEL 31 MEQ/L (21-32); CHLORIDE LEVEL 103 MEQ/L (98-107); CK-MB VALUE MASS 1.5 NG/ML (<3.6); CPK CREATINE PHOSPHOKINASE 28 U/L (39-308); CREATININE FOR GFR 0.85 MG/DL (0.70-1.30); GLOMERULAR FILTRATION RATE > 60.0 (>35); GLUCOSE, FASTING 101 MG/DL (70-100); MB/CK RELATIVE INDEX 5.36 (< OR =4); NT-PRO BNP 30820 PG/ML (<450); POTASSIUM SERUM 3.9 MEQ/L (3.5-5.1); SODIUM LEVEL 141 MEQ/L (136-145); TOTAL PROTEIN 5.6 GM/DL (6.4-8.2); TROPONIN I 0.18 NG/ML (< 0.10)
[2019-12-13] MEDS ORDERED: MOM 30ML SUSPENSION UDC PO PRN (18:30)
[2019-12-13] MEDS ORDERED: BISACODYL 10 MG SUPP PR PRN (18:30)
[2019-12-13] MEDS ORDERED: FLEET ENEMA PR PRN (18:30)
--- NOTE | 2019-12-13 18:42 | HPEPDOC ---
[facility] Medical History & Physical Date of Admission Dec 13, 2019 Date of Service: Dec 13, 2019 Primary Care Physician: Toney Hercules M.D. Attending Physician: ADRIANA LANE DO History and Physical CHIEF COMPLAINT: SOB, weakness, leg swelling HISTORY OF PRESENT ILLNESS: Nacho Blake is an 79 YO with recurrent PNA, recent history of bacteremia on IV antibiotics, and severe aortic stenosis who presents from [facility] rehab with shortness of breath, weakness, increased leg swelling. He was recently hospitalized at [facility] and discharged on December 10, 2019 for congestive heart failure exacerbation and was diuresed about 2-3L. In addition, he was recently hospitalized in [facility] (10/21 - 11/01) for recurrent pneumonia. He notes that he has had pneumonia at least 3 separate times in the past 6 months. On that hospitalization, he was found to have bacteremia due to enterococcus faecalis. Source was not found--patient underwent UGI endoscopy and colonoscopy, TTE and TUNG and no cancer or endocarditis was found. He is currently undergoing IV antibiotic therapy until completion on 01/04/2020. In addition, he is undergoing rehabilitation in hopes of getting a TAVR. The patient reports that his shortness of breath and lower extremity swelling has worsened since his last hospitalization. He also reports he has not slept in 5 days. He has no known sick contacts. He sleeps on 2 pillows and is able to lay flat. Of note, he has lost over 60 pounds in the past 3 months. 10/22 blood culture x 2 with Enterococcus faecalis sensitive to Ampicillin Repeat blood culture 10/24 x2 NG PAST MEDICAL HISTORY: Nonrheumatic aortic valve stenosis Atrial fibrillation Like obstructive pulmonary disease, not on oxygen HTN. IBS. HX. BORDERLINE DIABETES. NEUROPATHIC (L) ARM SX.. History of Prostate cancer Anemia, chronic Severe protein calorie malnutrition Spinal stenosis-cervical region. PAST SURGICAL HISTORY: back surgery TURP 01/1996 appendectomy cholecystectomy colonoscopy 12/24/13 skin cancer right shoulder- 07/2014 tonsillectomy Heart cath 11/19/17 C 3-5 laminoplasty 03/27/2018 SOCIAL HISTORY: Former pipe smoker for greater than 50 years. Quit 2 months ago. No alcohol use. No other drug abuse FAMILY HISTORY: Father: 94 yrs, heart attack Mother: 95 yrs, heart attack Siblings: alive, all healthy 4 sister(s) . 1 son(s) , 1 daughter(s) . ALLERGIES: Please see below. REVIEW OF SYSTEMS: CONSTITUTIONAL: Feels well. No fever or chills HEENT: denies vision changes, no sinus problems, denies any trouble swallowing CARDIOVASCULAR: no palpitations RESPIRATORY: Reports shortness of breath with activity, coughing without productive sputum GENITOURINARY: No dysuria MUSCULOSKELETAL: Denies any joint/muscle pain GASTROINTESTINAL: Denies abdominal pain, no nausea/vomiting/diarrhea SKIN: No new rashes or lesions NEUROLOGICAL: No loss of sensation PSYCHIATRIC: Reports normal mood, no delusions or hallucinations ENDOCRINE: No hot/cold intolerance HEMATOLOGIC/LYMPHATIC: No easy bruising, no lumps/bumps ALLERGIC/IMMUNOLOGIC: No sinus symptoms HOME MEDICATIONS: Please see below. PHYSICAL EXAMINATION: VITAL SIGNS: Please see below. GENERAL APPEARANCE: Laying in bed, very cachectic, appears stated age, no acute distress, calm, cooperative HEENT: EOMI, PERRLA, neck is supple with no thyromegaly or lymphadenopathy, very poor dentition CHEST: There are several bruises and telangiectasias over his chest RESPIRATORY: Crackles are appreciated bilaterally up to the middle lobes, with no other adventitious breath sounds CARDIOVASCULAR: JVD is is noted to be about 9 cm above this sternal angle, irregularly irregular rhythm , 4/6 systolic ejection murmur heard very loudly in the right upper sternal border that radiates to the carotids. PMI is displaced ABDOMEN: Soft, nontender to palpation in all four quadrants, no masses/organome teresa EXTREMITIES: Patient has 2+ pitting edema up to the thighs, PICC line in place in RUE. no other cyanosis or edema noted NEUROLOGICAL: Cranial nerves II through XII are intact, No obvious focal de ficits PSYCHIATRIC: normal mood/affect Skin: Many bruises all over upper extremities LN: No significant cervical or inguinal lymphadenopathy LABORATORY DATA: See below. IMAGIND TRANSTHOROACIC ECHOCARDIOGRAM 11/24/2019: 1. Left ventricular cavity size is moderately dilated with mild increase in wall thickness. Right ventricle is mildly dilated with reduced function. 2. Left ventricular systolic function is moderately reduced with estimated ejection fraction of 30-35%. 3. Left ventricular wall motion is moderate diffuse global hypokinesis. 4. Left ventricular diastolic function is abnormal with elevated filling pressure. 5. Severe biatrial enlargement. 6. Estimated pulmonary artery pressure is 50 mmHg 7. 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 Aortic valve V max is 4.41 M/Sec, max/mean gradient 78/49 mmHg consistent with severe aortic stenosis. At least moderate aortic regurgitation. There are 2 jets. TRANSESOPHAGEAL ECHOCARDIOGRAM 11/26/2019 There is a clot in the atrial appendage. All findings same as above. MICROBIOLOGY: Please see below. ASSESSMENT: This is an 79-year-old male with history of severe aortic stenosis and congestive heart failure who presents with shortness of breath, weakness and lower extremity swelling concerning for congestive heart failure exacerbation versus worsening aortic stenosis. He will be admitted to the medical surgical floor for diuresis at this time. PLAN: 1. 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 Left ventricular ejection fraction 30-35%. -Will start patient on 20 mg IV Lasix twice daily with net negative goal 2L/day -Strict I/O with 2g Sodium diet, daily weights -Will consult Cardiology (Ilia) as patient's Gizzard Peeler is Florentino -BNP elevated at 30,820 2. Severe aortic stenosis: AV mean gradient 78 mmHg -Will take caution with diuresis so as to be excessive in decreasing preload, which could worsen his aortic stenosis -Patient is known candidate for TAVR. He may possibly require transfer on this admission for further optimization for TAVR procedure. 3. Chronic Atrial fibrillation, non-valvular: -Continue Xarelto -Continue home Metoprolol 12.5mg BID 4. History of Enterococcus bacteremia: -Currently on IV Ampicillin and IV Rocephin. Will continue via PICC line -No infectious symptoms at this time -Colonoscopy negative, no findings of endocarditis -Will repeat blood cultures 5. Mobile clot in Left atrial appendage: received IV heparin at [facility] -Currently on Xarelto 6. Urinary retention: -Continue home Terazosin 7. COPD: -Continue home inhalers 7. Deconditioning: -PT/OT ordered 8. Chronic anemia: -Hgb stable at this moment 9. Severe protein calorie malnutrition: -Albumin found to be 2.2 -Patient has had 60 lb weight loss over the past several months -Speech therapy consult for swallowing -Patient will need dietary consult DISPO: Pending clinical improvement in fluid status and SOB. Vital Signs Vital Signs Date Time Temp Pulse Resp B/P (MAP) Pulse Ox O2 Delivery O2 Flow Rate FiO2 12/13/19 16:13 99.1 101 20 129/66 (87) 100 Nasal Cannula 2.0 Laboratory Data Labs 24H Laboratory Tests 2 12/13/19 16:49: Immature Granulocyte % (Auto) 1.5, Neutrophils (%) (Auto) 84.8H, Lymphocytes (%) (Auto) 4.9L, Monocytes (%) (Auto) 8.6H, Eosinophils (%) (Auto) 0.0, Basophils (%) (Auto) 0.2, Neutrophils # (Auto) 9.0H, Lymphocytes # (Auto) 0.5L, Monocytes # (Auto) 0.9H, Eosinophils # (Auto) 0.0, Basophils # (Auto) 0.0, Nucleated Red Blood Cells % (auto) 2.6H, Anion Gap 7L, Glomerular Filtration Rate > 60.0, Lactic Acid Level 3.2*H, Calcium Level 8.2L, Total Bilirubin 0.6, Direct Bilirubin 0.4H, Aspartate Amino Transf (AST/SGOT) 280H, Alanine Aminotransferase (ALT/SGPT) 265H, Alkaline Phosphatase 183H, Total Creatine Kinase 28L, Creatine Kinase MB 1.5, Creatine Kinase MB Relative Index 5.36H, Troponin I 0.18H, UP-Bcv-R-Type Natriuretic Peptide 82526H, Total Protein 5.6L, Albumin 2.2L, Albumin/Globulin Ratio 0.65L CBC/BMP Laboratory Tests 12/13/19 16:49 Microbiology Microbiology 12/13/19 Blood Culture, Received Pending 12/13/19 Blood Culture, Received Pending Home Medications Scheduled Ampicillin Sodium (Ampicillin Sodium) 1 Gm Vial.port, 2 GM IV Q4H FOR 26 DAYS 0500,0900,1300,1700,2100 START 12/10/19 END 01/04/20 Aspirin (Aspirin) 81 Mg Tab.chew, 81 MG PO BID Ceftriaxone Sodium (Ceftriaxone) 1 Gm Vial, 2 GRAM IV BID 0600 AND 1800 START 12/10/19 END 01/04/20 Dicyclomine HCl (Dicyclomine HCl) 10 Mg Cap, 10 MG PO BID Fluticasone Propion/Salmeterol (Advair Hfa 230-21 Mcg Inhaler) 12 Gm Hfa.aer.ad, 2 PUFF INH BID Furosemide (Furosemide) 40 Mg Tablet, 40 MG PO DAILY Metoprolol Tartrate (Metoprolol Tartrate) 25 Mg Tablet, 12.5 MG PO BID HOLD IF AP <60 AND SBP <100 Potassium Chloride (Potassium Chloride) 10 Meq Tab.er.prt, 10 MEQ PO DAILY Rivaroxaban (Xarelto) 20 Mg Tablet, 20 MG PO DAILY Terazosin HCl (Terazosin HCl) 5 Mg Cap, 5 MG PO DAILY Scheduled PRN Acetaminophen (Acetaminophen) 325 Mg Tab, 650 MG PO Q4H PRN for PAIN / FEVER Albuterol Sulfate (Albuterol Sulfate) 2.5 Mg/0.5 Ml Vial.neb, 2.5 MG INH Q6H PRN for SHORTNESS OF BREATH Bisacodyl (Bisacodyl) 10 Mg Supp.rect, [address] DAILY PRN for CONSTIPATION Levalbuterol Hydrochloride (Xopenex Hfa) 15 Gm Hfa.aer.ad, 2 PUFF INH Q4H PRN for WHEEZING Magnesium Hydroxide (Milk of Magnesia) 400 Mg/5 Ml Oral.susp, 30 ML PO DAILY PRN for CONSTIPATION Sodium Phosphate,Rankin-Dibasic (Enema) 133 Ml Enema, [address] DAILY PRN for CONSTIPATION Allergies Coded Allergies: meperidine (Verified Adverse Reaction, Mild, vomiting, 12/13/19) A-FIB/CHADSVASC A-FIB History Current/History of A-Fib/PAF?: Yes Current PO Anticoag Therapy: Yes GME ATTESTATION GME ATTESTATION My faculty preceptor for this patient encounter was physically present during the encounter and was fully available. All aspects of the patient interview, examination, medical decision making process, and medical care plan development were reviewed and approved by the faculty preceptor. The faculty preceptor is aware and concurs with the plan as stated in the body of this note and will attest to such by his/her cosignature. ATTENDING NOTE I, Adriana Lane, have independently examined this patient and performed my own physical exam, as well as reviewed the documentation. I have discussed in detail with the resident / student the findings and plan of treatment as do cumented by the resident / student. I agree with their findings and treatment plan. I will continue to follow the patient during this hospital stay. NANCIE OWEN MD Dec 13, 2019 18:[address] DO Dec 15, 2019 15:47
[2019-12-13] MEDS: ADVAIR HFA 230/21MCG INHALER INH SCH (20:21)
[2019-12-13 20:25] VITALS: BP 120/82
[2019-12-13] MEDS ORDERED: cefTRIAXone SOD 1GM VIAL (J0696 PER 250MG) IV SCH (21:00)
[2019-12-13] MEDS ORDERED: ASPIRIN 81 MG CHEW TABLET PO SCH (21:00)
[2019-12-13] MEDS ORDERED: hydrOXYzine 25 MG TAB PO SCH (21:00)
[2019-12-13 21:23] LABS: MAGNESIUM LEVEL 2.2 MG/DL (1.8-2.4)
[2019-12-13] MEDS: DICYCLOMINE 10 MG CAP PO SCH (21:28)
[2019-12-13] MEDS: AMPICILLIN SOD 2 GM in D5W MINI-BAG PLUS 100 ML IV SCH (21:31)
[2019-12-13] MEDS: METOPROLOL TART 12.5 MG PER 1/2 TAB PO SCH (21:32)
[2019-12-13] MEDS: cefTRIAXone SOD 2 GM in D5W MINI-BAG PLUS 50 ML IV SCH (22:29)
[2019-12-13 23:30] VITALS: BP 100/50
[2019-12-14] MEDS: AMPICILLIN SOD 2 GM in D5W MINI-BAG PLUS 100 ML IV SCH ×7 (01:18→23:57)
[2019-12-14] MEDS: SODIUM CHLORIDE 0.9% INJ 10 ML SYR IV PRN (02:12)
--- NOTE | 2019-12-14 05:44 | ECGEPIP ---
[facility] - ED Test Date: 2019-12-13 Pat Name: RAGHAV WEBSTER Department: Room: - Gender: Male Javascript Ui Developer: : 1940 Requested By: DANIA CARIAS Order Number: [id number] Reading MD: Avtar Guerra Measurements Intervals [place] Rate: 96 P: ID: 0 QRS: -12 QRSD: 106 T: 150 QT: 396 QTc: 500 Interpretive Statements ATRIAL FIBRILLATION WITH ABERRANT CONDUCTION OR VENTRICULAR PREMATURE COMPLEXES MODERATE INTRAVENTRICULAR CONDUCTION DELAY INFERIOR MYOCARDIAL INFARCTION, PROBABLY OLD ANTEROSEPTAL MYOCARDIAL INFARCTION, OF INDETERMINATE AGE SIMILAR TO 12/09/19 Electronically Signed on 12-14-2019 5:43:40 EDT by Avtar Guerra
[2019-12-14 05:51] LABS: HEMATOCRIT 32.5 % (42.0-52.0); HEMOGLOBIN 9.9 g/dl (13.5-17.5); MEAN CORPUSCULAR HEMOGLOBIN 33.7 pg (27.0-33.0); MEAN CORPUSCULAR HGB CONC 30.5 g/dl (32.0-36.5); MEAN CORPUSCULAR VOLUME 110.5 fl (80.0-96.0); PLATELET COUNT, AUTOMATED 292 10^3/uL (150-450); RED BLOOD COUNT 2.94 10^6/uL (4.30-6.10); WHITE BLOOD COUNT 10.1 10^3/uL (4.0-10.0)
[2019-12-14 06:00] VITALS: BP 119/67
[2019-12-14] MEDS: SODIUM CHLORIDE 0.9% INJ 10 ML SYR IV SCH ×2 (06:14→17:12)
[2019-12-14 06:19] LABS: BLOOD UREA NITROGEN 31 MG/DL (7-18); CALCIUM LEVEL 8.5 MG/DL (8.8-10.2); CARBON DIOXIDE LEVEL 30 MEQ/L (21-32); CHLORIDE LEVEL 103 MEQ/L (98-107); CREATININE FOR GFR 0.82 MG/DL (0.70-1.30); GLOMERULAR FILTRATION RATE > 60.0 (>35); GLUCOSE, FASTING 115 MG/DL (70-100); MAGNESIUM LEVEL 2.3 MG/DL (1.8-2.4); POTASSIUM SERUM 3.7 MEQ/L (3.5-5.1); SODIUM LEVEL 141 MEQ/L (136-145)
[2019-12-14] MEDS: ADVAIR HFA 230/21MCG INHALER INH SCH ×2 (07:35→20:32)
[2019-12-14] MEDS: DICYCLOMINE 10 MG CAP PO SCH ×2 (08:35→20:20)
[2019-12-14] MEDS: METOPROLOL TART 12.5 MG PER 1/2 TAB PO SCH ×2 (08:35→21:00)
[2019-12-14] MEDS: POTASSIUM CHLORIDE 10 MEQ SR TABLET PO SCH (08:35)
[2019-12-14] MEDS: TERAZOSIN 5 MG CAP PO SCH (08:35)
[2019-12-14] MEDS ORDERED: FUROSEMIDE 40 MG/4 ML VIAL (J1940) IV SCH ×4 (09:00→17:00)
[2019-12-14] MEDS: cefTRIAXone SOD 2 GM in D5W MINI-BAG PLUS 50 ML IV SCH ×2 (09:31→22:00)
--- NOTE | 2019-12-14 09:48 | CR ---
DATE OF CONSULTATION: 12/14/2019 ATTENDING PHYSICIAN: Liu Morillo MD SUBJECTIVE: Mr. Blake is a known patient of ours at [facility] who was just recently discharged on 12/10/2019 for congestive heart failure who was returning yesterday for shortness of breath, weakness, and lower extremity swelling. The patient has a known history of recurrent bacteremia currently on intravenous (IV) antibiotics and very severe aortic stenosis, who is awaiting for a transaortic valve replacement (TAVR) after the bacteremia has resolved. He was recently admitted at [facility] from 12/08/2019 to 12/10/2019 for congestive heart failure exacerbation and was diuresed about 2-3 liters during that stay. He was compensated on the day of discharge and was advised to go back to [facility] to continue with IV antibiotics as scheduled. He returned yesterday for extreme lower extremity swelling all the way up to his hips, worsening shortness of breath, and weakness. Per our records, it states that the patient gained about 10 kg. I am unsure of how accurate this is, but clinically the patient does look decompensated. He states he does not feel very well. He is just very tired and just wants to get better. He has no other complaints at this time. He is currently on 2 liters of nasal cannula, and prior to discharge he was on none, as well at home. If you want to know his previous admission, because he was recently just discharged, and we did evaluate him, please refer to my consultation note for further information. PHYSICAL EXAMINATION: VITAL SIGNS: Temperature 99.2, pulse 90, respiration 26, blood pressure 119/67 (84), pulse oximetry 100 on 2 liters of nasal cannula. Total in the last 24 hours 570 mL, output total 1150 mL, balance of negative 580 mL. GENERAL: This is a very pleasant 79-year-old male who appears cachectic, laying in bed. Speaking in 3-4 words and slightly short of breath with normal conversation. Some upper accessory muscle use. HEENT: Atraumatic, normocephalic. Bitemporal wasting. Prominent zygomatic cheekbones. Pupils are equal, round, and reactive. Very poor dentition. No thyromegaly. No lymphadenopathy. No trachea deviation. RESPIRATORY: Diminished breath sounds bilaterally, left worse than right, up to two-thirds of the way of the lungs. Clear to auscultate in the upper air lobes. No upper respiratory lung sounds appreciated. Dullness to percussion appreciated in bilateral lower bases, left worse than right. CARDIOVASCULAR: Elevated jugular venous distention (JVD) up to the angle of the mandible. Irregularly irregular, currently slightly tachycardic with a heart rate of 110-120. A 3/6 systolic ejection murmur at the 2nd intercostal space on the right that radiates up to the carotids. A purplish papillary rash over the right shoulder, improving. Originally thought it was bruising, but no healing bruising yellow tinting appreciated. There is telangiectasias over the left chest wall. ABDOMEN: Soft, nontender. EXTREMITIES: Significant 2+ pitting edema mid thighs bilaterally. Peripherally inserted central catheter (PICC) line placed in the right upper arm. Extremities nontender. No erythema and no discharge noted. It is in good placement. NEUROLOGIC: Alert and oriented times three but decompensated since we last saw him. Looks a little bit more lethargic on examination. LABORATORIES: Hematology: WBC 10.1, hemoglobin 9.9, hematocrit 32.5, platelets 292. Chemistry: Sodium 141, potassium 3.7, chloride 103, carbon dioxide 30, anion gap 8, BUN 31, creatinine 0.82, GFR greater than 60.0, fasting glucose 115, lactic acid yesterday at 1649 was 3.2, lactic acid 4 hours later was 4.0 at 2137, calcium 8.5, and magnesium 2.3. MICROBIOLOGY: Blood cultures times two currently pending. IMAGING: Chest x-ray: Significant cardiomegaly with vascular congestion. Bibasilar infiltrates and effusions appreciated. The right PICC is in appropriate spot. ASSESSMENT AND PLAN: This is an 79-year-old male with a pertinent history of very severe aortic stenosis awaiting a TAVR, congestive heart failure with an ejection fraction of 30% to 35% who presented with worsening shortness of breath and lower extremity edema bilaterally who was admitted for decompensated heart failure. The patient was recently just discharged from the hospital on 12/10/2019 and is returning 3 days later for worsening shortness of breath. IMPRESSIONS: 1. Dyspnea secondary to decompensated congestive heart failure and severe aortic stenosis. 2. Severe aortic stenosis. Awaiting TAVR. 3. Decompensated congestive heart failure with an ejection fraction of 30% to 35%. 4. Atrial fibrillation, currently not rate controlled. Rate is 110-120 at rest with a left appendage clot, currently on Xarelto and metoprolol 12.5 mg twice a day. 5. History of recurrent Enterococcus bacteria. Possible source pneumonia but unsure. Currently on intravenous (IV) antibiotics: Ampicillin and Rocephin through a peripherally inserted central catheter (PICC) line until 01/04/2020. 6. History of urinary retention. 7. History of chronic obstructive pulmonary disease (COPD). 8. Severe protein-caloric malnutrition. 9. Macrocytic anemia. 10. Transaminitis, possibly secondary to portal congestion from right heart failure. PLAN: From a cardiovascular standpoint, the patient appears decompensated. He appears very fluid overloaded. Significantly short of breath on examination. Is on nasal cannula when he previously was not on the last admission. His lung examination, you can appreciate dullness to percussion bilaterally posteriorly up to mid lungs, which is consistent with fluid overload. He got 80 mg of furosemide yesterday and only diuresed roughly a little over a liter. We recommend furosemide 40 mg twice a day, and we will reassess the patient and place on fluid status. For the question of a possible transfer for a TAVR placement, we will talk to Dr. Tapia to see if the patient will be candidate for early TAVR. My prediction is that he will not be because of the current bacteremia that he has, and we will just have to get him fluid optimized first and wait until the antibiotics are completed. The patient appears significantly more decompensated today. So I am very wary of his prognosis due to how quickly he decompensated after being discharged recently. We will continue to follow along with the patient while he is admitted. Thank you for this consultation.
[2019-12-14] MEDS: MORPHINE 2 MG/ML 1ML VIAL (J2270) IV PRN ×4 (09:55→23:58)
[2019-12-14 10:00] VITALS: BP 120/62
--- NOTE | 2019-12-14 10:46 | IPNPDOC ---
Date Seen The patient was seen on 12/14/19. Progress Note SUBJECTIVE: Mr. Blake is not feeling well today. Overnight, the patient complained of shortness of breath and frequently called out to nursing because he felt a "pins and needles" feeling all over his body, mostly in his lower extremities. He also had several asymptomatic beats of V-tach. There was concern as the patient was felt to meet sepsis criteria, as his lactic acid on admission was 4.0, he was lethargic, tachypneic and had an episode of hypotension. Night MD evaluated patient and found the patient to be quite anxious. The patient is experiencing episodes of air hunger 2/2 his atrial fibrillation and severe aortic stenosis. This morning, patient complains of pain in his abdomen and same "pins and needles" pain in his legs. He feels very anxious and would like something for pain. He did not work with PT this morning. Overall, the patient seems somewhat reluctant to accept his poor prognosis. OBJECTIVE PHYSICAL EXAMINATION: VITAL SIGNS: Please see below. GENERAL APPEARANCE: Laying in bed, very cachectic, appears stated age, no acute distress, calm, cooperative HEENT: EOMI, PERRLA, neck is supple with no thyromegaly or lymphadenopathy, very poor dentition CHEST: There are several bruises and telangiectasias over his chest RESPIRATORY: Crackles are appreciated bilaterally up to the middle lobes, with no other adventitious breath sounds CARDIOVASCULAR: JVD is is noted to be about 9 cm above this sternal angle, irregularly irregular rhythm , 4/6 systolic ejection murmur heard very loudly in the right upper sternal border that radiates to the carotids. PMI is displaced ABDOMEN: Soft, nontender to palpation in all four quadrants, no masses/organomegaly EXTREMITIES: Patient has 2+ pitting edema up to the thighs, PICC line in place in RUE. no other cyanosis or edema noted NEUROLOGICAL: Cranial nerves II through XII are intact, No obvious focal deficits PSYCHIATRIC: normal mood/affect Skin: Many bruises all over upper extremities and pupuric rash over R shoulder LN: No significant cervical or inguinal lymphadenopathy LABORATORY DATA: See below. IMAGIND TRANSTHOROACIC ECHOCARDIOGRAM 11/24/2019: 1. Left ventricular cavity size is moderately dilated with mild increase in wall thickness. Right ventricle is mildly dilated with reduced function. 2. Left ventricular systolic function is moderately reduced with estimated ejection fraction of 30-35%. 3. Left ventricular wall motion is moderate diffuse global hypokinesis. 4. Left ventricular diastolic function is abnormal with elevated filling pressure. 5. Severe biatrial enlargement. 6. Estimated pulmonary artery pressure is 50 mmHg 7. 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 Aortic valve V max is 4.41 M/Sec, max/mean gradient 78/49 mmHg consistent with severe aortic stenosis. At least moderate aortic regurgitation. There are 2 jets. TRANSESOPHAGEAL ECHOCARDIOGRAM 11/26/2019 There is a clot in the atrial appendage. All findings same as above. MICROBIOLOGY: Please see below. ASSESSMENT: This is an 79-year-old male with history of severe aortic stenosis and congestive heart failure who presents with shortness of breath, weakness and lower extremity swelling concerning for congestive heart failure exacerbation ve rsus worsening aortic stenosis. He will be admitted to the medical surgical floor for diuresis at this time. PLAN: 1. 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 Left ventricular ejection fraction 30-35%. -Continue 40 mg IV Lasix twice daily with net negative goal 2L/day -Strict I/O with 2g Sodium diet, daily weights -Caridiology consulted. appreciate recommendations. -BNP elevated at 30,820 2. Severe aortic stenosis: AV mean gradient 78 mmHg -Will take caution with diuresis so as to be excessive in decreasing preload, which could worsen his aortic stenosis -Patient is known candidate for TAVR. He may possibly require transfer on this admission for further optimization for TAVR procedure. 3. Chronic Atrial fibrillation, non-valvular: -Continue Xarelto -Continue home Metoprolol 12.5mg BID 4. History of Enterococcus bacteremia: -Currently on IV Ampicillin and IV Rocephin. Will continue via PICC line -No infectious symptoms at this time -Colonoscopy negative, no findings of endocarditis -Will repeat blood cultures 5. Mobile clot in Left atrial appendage: received IV heparin at [facility] -Currently on Xarelto 6. Urinary retention: -Continue home Terazosin 7. COPD: -Continue home inhalers 7. Deconditioning: -PT/OT ordered 8. Chronic anemia: -Hgb stable at this moment. ASA stopped, as it was not needed 9. Severe protein calorie malnutrition: -Albumin found to be 2.2 -Patient has had 60 lb weight loss over the past several months -Speech therapy consult for swallowing -Patient will need dietary consult 10. Anxiety: -1mg IV Morphine for pain/anxiety -Ramelteon for sleep DISPO: Pending clinical improvement in fluid status and SOB. VS, I&O, 24H, Fishbone Vital Signs/I&O Vital Signs Date Time Temp Pulse Resp B/P (MAP) Pulse Ox O2 Delivery O2 Flow Rate FiO2 12/14/19 10:05 20 Nasal Cannula 2.0 12/14/19 10:00 98.7 100 120/62 (81) 100 I&O- Last 24 Hours up to 6 AM 12/14/19 06:00 Intake Total 730 ml Output Total 1375 ml Balance -645 ml Laboratory Data 24H LABS Laboratory Tests 2 12/13/19 16:49: Immature Granulocyte % (Auto) 1.5, Neutrophils (%) (Auto) 84.8H, Lymphocytes (%) (Auto) 4.9L, Monocytes (%) (Auto) 8.6H, Eosinophils (%) (Auto) 0.0, Basophils (%) (Auto) 0.2, Neutrophils # (Auto) 9.0H, Lymphocytes # (Auto) 0.5L, Monocytes # (Auto) 0.9H, Eosinophils # (Auto) 0.0, Basophils # (Auto) 0.0, Nucleated Red Blood Cells % (auto) 2.6H, Anion Gap 7L, Glomerular Filtration Rate > 60.0, Lactic Acid Level 3.2*H, Calcium Level 8.2L, Magnesium Level 2.2, Total Bilirubin 0.6, Direct Bilirubin 0.4H, Aspartate Amino Transf (AST/SGOT) 280H, Alanine Aminotransferase (ALT/SGPT) 265H, Alkaline Phosphatase 183H, Total Creatine Kinase 28L, Creatine Kinase MB 1.5, Creatine Kinase MB Relative Index 5.36H, Troponin I 0.18H, NX-Flk-M-Type Natriuretic Peptide 11400L, Total Protein 5.6L, Albumin 2.2L, Albumin/Globulin Ratio 0.65L 12/13/19 21:37: Lactic Acid Followup at 4 Hours 4.0*H 12/14/19 05:28: Nucleated Red Blood Cells % (auto) 2.8H, Anion Gap 8, Glomerular Filtration Rate > 60.0, Calcium Level 8.5L, Magnesium Level 2.3 CBC/BMP Laboratory Tests 12/13/19 16:49 12/14/19 05:28 Microbiology Microbiology 12/13/19 Blood Culture, Received Pending 12/13/19 Blood Culture, Received Pending GME ATTESTATION GME ATTESTATION My faculty preceptor for this patient encounter was physically present during th e encounter and was fully available. All aspects of the patient interview, examination, medical decision making process, and medical care plan development were reviewed and approved by the faculty preceptor. The faculty preceptor is aware and concurs with the plan as stated in the body of this note and will attest to such by his/her cosignature. ATTENDING NOTE , Adriana Lane, have independently examined this patient and performed my own physical exam, as well as reviewed the documentation. I have discussed in detail with the resident / student the findings and plan of treatment as documented by the resident / student. NANCIE OWEN MD Dec 14, 2019 10:[address] DO Dec 14, 2019 12:34
[2019-12-14] MEDS: ACETAMINOPHEN TAB 650MG DOSE (2X325MG) PO PRN (12:19)
[2019-12-14 14:00] VITALS: BP 90/56
[2019-12-14] MEDS: RIVAROXABAN 20 MG TAB (XARELTO) PO SCH (17:11)
[2019-12-14] MEDS ORDERED: METOPROLOL 5 MG/5 ML VIAL IV STA (17:41)
[2019-12-14 18:58] VITALS: BP 110/60
[2019-12-14 20:00] VITALS: BP 110/50
[2019-12-14] MEDS: RAMELTEON 8 MG TAB (ROZEREM) PO SCH (20:19)
[2019-12-15] VITALS (8 sets, daily range): BP systolic 98–123; BP diastolic 60–78
[2019-12-15] MEDS: LEVALBUTEROL 1.25 MG/0.5 ML CONCENTRATE NEB INH PRN (01:46)
[2019-12-15] MEDS ORDERED: hydrOXYzine 25 MG TAB PO ONE (03:00)
[2019-12-15 04:57] LABS: HEMATOCRIT 33.4 % (42.0-52.0); MEAN CORPUSCULAR HEMOGLOBIN 33.1 pg (27.0-33.0); MEAN CORPUSCULAR HGB CONC 29.9 g/dl (32.0-36.5); MEAN CORPUSCULAR VOLUME 110.6 fl (80.0-96.0); PLATELET COUNT, AUTOMATED 292 10^3/uL (150-450); RED BLOOD COUNT 3.02 10^6/uL (4.30-6.10)
[2019-12-15] MEDS: AMPICILLIN SOD 2 GM in D5W MINI-BAG PLUS 100 ML IV SCH ×5 (05:00→20:30)
[2019-12-15 05:16] LABS: BLOOD UREA NITROGEN 33 MG/DL (7-18); CALCIUM LEVEL 8.2 MG/DL (8.8-10.2); CARBON DIOXIDE LEVEL 27 MEQ/L (21-32); CHLORIDE LEVEL 100 MEQ/L (98-107); CREATININE FOR GFR 0.88 MG/DL (0.70-1.30); GLOMERULAR FILTRATION RATE > 60.0 (>35); GLUCOSE, FASTING 137 MG/DL (70-100); POTASSIUM SERUM 3.6 MEQ/L (3.5-5.1); SODIUM LEVEL 138 MEQ/L (136-145)
[2019-12-15] MEDS: SODIUM CHLORIDE 0.9% INJ 10 ML SYR IV SCH ×2 (06:31→17:19)
[2019-12-15] MEDS: MORPHINE 2 MG/ML 1ML VIAL (J2270) IV PRN ×2 (06:32→10:35)
[2019-12-15] MEDS: ADVAIR HFA 230/21MCG INHALER INH SCH ×2 (07:23→19:57)
[2019-12-15] MEDS: FUROSEMIDE 40 MG/4 ML VIAL (J1940) IV SCH ×3 (08:21→17:19)
[2019-12-15] MEDS: TERAZOSIN 5 MG CAP PO SCH (08:22)
[2019-12-15] MEDS: MAGNESIUM OXIDE 400 MG TAB (MAG-OX) PO SCH (08:22)
[2019-12-15] MEDS: POTASSIUM CHLORIDE 10 MEQ SR TABLET PO SCH (08:23)
[2019-12-15] MEDS: METOPROLOL TART 12.5 MG PER 1/2 TAB PO SCH ×4 (08:23→17:19)
[2019-12-15] MEDS: DICYCLOMINE 10 MG CAP PO SCH ×2 (08:23→20:29)
[2019-12-15 08:55] LABS: MAGNESIUM LEVEL 2.4 MG/DL (1.8-2.4)
[2019-12-15] MEDS: cefTRIAXone SOD 2 GM in D5W MINI-BAG PLUS 50 ML IV SCH ×2 (09:50→21:18)
--- NOTE | 2019-12-15 10:02 | IPN ---
DATE: 12/15/2019 Mr. Blake was seen and examined this morning during bedside rounds with Dr. Morillo at bedside. Patient was transferred yesterday evening to progressive care unit (PCU) for he was having continued shortness of breath, lower extremity edema, and two beats V-tac on telemetry. He states that he did not sleep very well last night and he would like something to help him to sleep. He was given Atarax 25 mg early this morning which helped with his anxiety but he is still unable to get a good night's rest. He continues to complain of lower extremity edema, shortness of breath, and trouble breathing. He denies any chest pain or trouble eating. He does state that he has decreased appetite. His blood pressure has been stable. He continues to be on 2 liters nasal cannula and no other events reported by nursing or telemetry. Telemetry states his heart rate heart rate has been to a high of 110, will sometimes peak to 120 but was nonsustained. PHYSICAL EXAMINATION: VITALS: Temperature 96.8, pulse 55, respiration 18, blood pressure 117/72, (87), pulse ox 97% on 2 liters of nasal cannula. Intake total 1510 mL, output total 1225 mL, balance positive 285 mL. GENERAL: This is a very pleasant 79-year-old cachectic male laying in bed speaking in three to four sentences once again. Continues to be short of breath with normal conversation. Continue to use upper accessory muscles to converse. HEENT: Atraumatic, normocephalic, bitemporal wasting. Prominent zygomatic cheek bones. Pupils equal, round and reactive. Very poor dentition. No lymphadenopathy. No tracheal deviations. No subcutaneous emphysema. RESPIRATORY: Continue to have diminished breath sounds bilaterally. This has not improved from yesterday. Continues to be up two-thirds of the way of the lung. Clear to auscultate in the upper lobes though bilaterally. No adventitious upper respiratory lung sounds appreciated. Dullness to percussion on the lower lobes bilaterally. CARDIOVASCULAR: Continually has elevated jugular venous distention (JVD), irregularly irregular, currently rate controlled at 60 beats per minute. 3/6 systolic ejection murmur at the right second intercostal space that radiates to the carotid. CHEST: Bluish papillary rash on the right shoulder improving. Telangiectasia over the left chest wall as well. ABDOMEN: Soft, nontender. EXTREMITIES: Significant 2+ pitting edema bilaterally. In the mid thighs slightly improving but not significantly. Peripherally inserted central catheter (PICC) line in place in the right upper arm. Nonerythematous. No discharge noted, in good placement. NEUROLOGIC: Alert and oriented times three. Not as fatigued or lethargic as yesterday. LABORATORIES: WBC 11.0, hemoglobin 10.0, hematocrit 33.4, platelets 292. Chemistries: Sodium 138, potassium 3.6, chloride 100, carbon dioxide 27, ion gap 11, BUN 33, creatinine 0.88, GFR greater than 60.6. Fasting glucose 137, calcium 8.2, magnesium 2.4. Microbiology: Blood culture times two negative for any growth. No new imaging. ASSESSMENT/PLAN: This is an 79-year-old male with a pertinent history of severe aortic stenosis awaiting for transcatheter aortic valve replacement (TAVR), congestive heart failure with an ejection fraction of 30-35% who was recently discharged on 12/10/2019 and returning on 11/14/2019 for decompensated heart failure. IMPRESSION: 1. Dyspnea secondary to decompensated heart failure secondary to severe aortic stenosis. 2. Severe aortic stenosis: Mean gradient 49 awaiting TAVR. 3. Decompensated heart failure with ejection fraction 30-35%. 4. Atrial fibrillation with a left appendage clot recently found, currently on Xarelto and metoprolol tartrate 12.5 mg. 5. History of recurrent Enterococcus bacteremia, possible source pneumonia versus urinary tract infection (UTI) currently on IV antibiotics till 01/04/2020. 6. History of urinary retention. 7. History of chronic obstructive pulmonary disease (COPD). 8. Severe protein caloric malnutrition. 9. Macrocystic anemia. 10. Transaminitis possible secondary to portal congestion from right heart failure. PLAN: From a cardiovascular standpoint, patient continues to be very decompensated. Telemetry was reviewed and shows that he only had couple of beats of V-tac through the night that were nonsustained. His electrolytes this morning were reviewed and within normal limits. We are aggressively diuresing him yesterday with 40 mg twice a day. Because he continues to be fluid overloaded, we recommend increasing his furosemide 40 mg to every 6 hours to achieve a net negative of 2 liters over 24 hours. Also, we will supplement his magnesium oxide 400 mg today to replete electrolytes for he will go low with the aggressive diuresing. Will monitor his electrolytes daily. For his atrial fibrillation, his heart rates are ranging from 90-110 beats per minute. Even though this morning, he was reported at 50-60 beats per minute, will increase his metoprolol tartrate 12.5 mg to every 6 hours with hold parameters with hold if systolic blood pressure is less than 100 or heart rate is less than 65. For his severe aortic stenosis about possible transfer, we discussed this case with Dr. Tapia and at the current time, because the patient's current bacteremia status, he will not be a candidate for a TAVR until antibiotics are completed so he will continue with medical management at this current time. We discontinued his baby aspirin yesterday for the patient denies having a stent placement or a cerebrovascular accident (CVA) or transient ischemic attack (TIA) in the past. Because he is currently on Xarelto, we do not want to increase his risk of bleeding and he has a macrocytic anemia. Will continue to follow along with the patient while he is admitted.
--- NOTE | 2019-12-15 11:24 | IPNPDOC ---
Date Seen The patient was seen on 12/15/19. Progress Note SUBJECTIVE: Mr. Blake reports he is still getting profoundly short of breath with pins and needles feeling intermittently. He wants to get out of bed and be more active but he is afraid that he will get more short of breath. Overnight, he was very anxious and was given Atarax. He diuresed 1200 mL yesterday. Otherwise, he has no trouble urinating, is reportedly eating and drinking well, and is comfortable. OBJECTIVE PHYSICAL EXAMINATION: VITAL SIGNS: Please see below. GENERAL APPEARANCE: Laying in bed, very cachectic, appears stated age, no acute distress, calm, cooperative HEENT: EOMI, PERRLA, neck is supple with no thyromegaly or lymphadenopathy, very poor dentition CHEST: There are several bruises and telangiectasias over his chest RESPIRATORY: Crackles are appreciated bilaterally up to the middle lobes, with no other adventitious breath sounds CARDIOVASCULAR: JVD is is noted to be about 9 cm above this sternal angle, irregularly irregular rhythm , 4/6 systolic ejection murmur heard very loudly in the right upper sternal border that radiates to the carotids. PMI is displaced ABDOMEN: Soft, nontender to palpation in all four quadrants, no masses/organomegaly EXTREMITIES: Patient has 2+ pitting edema up to the thighs, PICC line in place in RUE. no other cyanosis or edema noted NEUROLOGICAL: Cranial nerves II through XII are intact, No obvious focal deficits PSYCHIATRIC: normal mood/affect Skin: Many bruises all over upper extremities and pupuric rash over R shoulder LN: No significant cervical or inguinal lymphadenopathy LABORATORY DATA: See below. IMAGIND TRANSTHOROACIC ECHOCARDIOGRAM 11/24/2019: 1. Left ventricular cavity size is moderately dilated with mild increase in wall thickness. Right ventricle is mildly dilated with reduced function. 2. Left ventricular systolic function is moderately reduced with estimated ejection fraction of 30-35%. 3. Left ventricular wall motion is moderate diffuse global hypokinesis. 4. Left ventricular diastolic function is abnormal with elevated filling pressure. 5. Severe biatrial enlargement. 6. Estimated pulmonary artery pressure is 50 mmHg 7. 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 Aortic valve V max is 4.41 M/Sec, max/mean gradient 78/49 mmHg consistent with severe aortic stenosis. At least moderate aortic regurgitation. There are 2 jets. TRANSESOPHAGEAL ECHOCARDIOGRAM 11/26/2019 There is a clot in the atrial appendage. All findings same as above. MICROBIOLOGY: Please see below. ASSESSMENT: This is an 79-year-old male with history of severe aortic stenosis and congestive heart failure who presents with shortness of breath, weakness and lower extremity swelling concerning for congestive heart failure exacerbation versus worsening aortic stenosis. He will be admitted to the medical surgical floor for diuresis at this time. PLAN: 1. 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 Left ventricular ejection fraction 30-35%. -IV Lasix increased to 40 mg every 6 hours, per cardiology with titration to 2 L being diuresed daily -Metoprolol increased to 12.5 mg every 6 hours by cardiology -Strict I/O with 2g Sodium diet, daily weights -BNP elevated at 30,820 2. Severe aortic stenosis: AV mean gradient 78 mmHg -Will take caution with diuresis so as to be excessive in decreasing preload, which could worsen his aortic stenosis. goal diuresis is only 2 L per day -Patient is known candidate for TAVR. Cardiology attempted transfer. However, the patient does not qualify due to his ongoing bacteremia. 3. Chronic Atrial fibrillation, non-valvular: -Continue Xarelto -Continue home Metoprolol 12.5 mg every 6 hours 4. History of Enterococcus bacteremia: -Currently on IV Ampicillin and IV Rocephin. Will continue via PICC line -No infectious symptoms at this time -Colonoscopy negative, no findings of endocarditis -Will repeat blood cultures 5. Mobile clot in Left atrial appendage: received IV heparin at [facility] -Currently on Xarelto 6. Urinary retention: -Continue home Terazosin 7. COPD: -Continue home inhalers 7. Deconditioning: -PT/OT ordered 8. Chronic anemia: -Hgb stable at this moment. ASA stopped, as it was not needed 9. Severe protein calorie malnutrition: -Albumin found to be 2.2 -Patient has had 60 lb weight loss over the past several months -Speech therapy consult for swallowing -Patient will need dietary consult 10. Anxiety: -1mg IV Morphine for pain/anxiety -Ramelteon for sleep -Would not suggest giving the patient hydroxyzine as it causes urinary retention and is anticholinergic. DISPO: Pending improvement in shortness of breath and further optimization of congestive heart failure. Possible discharge back to [facility] rehabilitation once optimized. VS, I&O, 24H, Fishbone Vital Signs/I&O Vital Signs Date Time Temp Pulse Resp B/P (MAP) Pulse Ox O2 Delivery O2 Flow Rate FiO2 12/15/19 10:35 90 30 110/60 92 Nasal Cannula 2.0 12/15/19 08:00 96.8 l I&O- Last 24 Hours up to 6 AM 12/15/19 06:00 Intake Total 1350 ml Output Total 1150 ml Balance 200 ml Laboratory Data 24H LABS Laboratory Tests 2 12/14/19 23:50: Bedside Glucose (Misc Panel) 131H 12/15/19 04:31: Nucleated Red Blood Cells % (auto) 2.6H, Anion Gap 11, Glomerular Filtration Rate > 60.0, Calcium Level 8.2L, Magnesium Level 2.4 CBC/BMP Laboratory Tests 12/15/19 04:31 Microbiology Microbiology 12/13/19 Blood Culture - Preliminary, Resulted No growth after 24 hours . All specim... 12/13/19 Blood Culture - Preliminary, Resulted No growth after 24 hours . All specim... GME ATTESTATION GME ATTESTATION My faculty preceptor for this patient encounter was physically present during the encounter and was fully available. All aspects of the patient interview, examination, medical decision making process, and medical care plan development were reviewed and approved by the faculty preceptor. The faculty preceptor is aware and concurs with the plan as stated in the body of this note and will attest to such by his/her cosignature. ATTENDING NOTE I, Adriana Lane, have independently examined this patient and performed my own physical exam, as well as reviewed the documentation. I have discussed in detail with the resident / student the findings and plan of treatment as documented by the resident / student. I agree with their findings and treatment plan. I will continue to follow the patient during this hospital stay. NANCIE OWEN MD Dec 15, 2019 11:[address] DO Dec 15, 2019 16:02
[2019-12-15] MEDS: SODIUM CHLORIDE 0.9% INJ 10 ML SYR IV PRN (12:19)
[2019-12-15] MEDS: RIVAROXABAN 20 MG TAB (XARELTO) PO SCH (17:19)
[2019-12-15] MEDS: ACETAMINOPHEN TAB 650MG DOSE (2X325MG) PO PRN (20:29)
[2019-12-15] MEDS: RAMELTEON 8 MG TAB (ROZEREM) PO SCH (20:29)
[2019-12-16] MEDS: AMPICILLIN SOD 2 GM in D5W MINI-BAG PLUS 100 ML IV SCH ×6 (00:53→21:09)
[2019-12-16] MEDS: FUROSEMIDE 40 MG/4 ML VIAL (J1940) IV SCH ×2 (00:53→05:14)
[2019-12-16] MEDS: METOPROLOL TART 12.5 MG PER 1/2 TAB PO SCH ×4 (00:54→17:38)
[2019-12-16] MEDS: ACETAMINOPHEN TAB 650MG DOSE (2X325MG) PO PRN (02:26)
[2019-12-16 04:00] VITALS: BP 111/51
[2019-12-16] MEDS: SODIUM CHLORIDE 0.9% INJ 10 ML SYR IV SCH ×2 (06:15→17:40)
[2019-12-16 06:16] LABS: HEMATOCRIT 32.1 % (42.0-52.0); HEMOGLOBIN 9.7 g/dl (13.5-17.5); MEAN CORPUSCULAR HEMOGLOBIN 33.6 pg (27.0-33.0); MEAN CORPUSCULAR HGB CONC 30.2 g/dl (32.0-36.5); MEAN CORPUSCULAR VOLUME 111.1 fl (80.0-96.0); PLATELET COUNT, AUTOMATED 263 10^3/uL (150-450); RED BLOOD COUNT 2.89 10^6/uL (4.30-6.10); WHITE BLOOD COUNT 9.2 10^3/uL (4.0-10.0)
[2019-12-16 06:48] LABS: BLOOD UREA NITROGEN 36 MG/DL (7-18); CALCIUM LEVEL 8.1 MG/DL (8.8-10.2); CARBON DIOXIDE LEVEL 30 MEQ/L (21-32); CHLORIDE LEVEL 98 MEQ/L (98-107); CREATININE FOR GFR 0.91 MG/DL (0.70-1.30); GLOMERULAR FILTRATION RATE > 60.0 (>35); GLUCOSE, FASTING 153 MG/DL (70-100); POTASSIUM SERUM 3.5 MEQ/L (3.5-5.1); SODIUM LEVEL 139 MEQ/L (136-145)
[2019-12-16] MEDS: ADVAIR HFA 230/21MCG INHALER INH SCH ×2 (07:39→20:29)
[2019-12-16 08:00] VITALS: BP 118/64
[2019-12-16] MEDS ORDERED: POTASSIUM CHLORIDE 10 MEQ SR TABLET PO ONE (08:00)
[2019-12-16] MEDS: POTASSIUM CHLORIDE 10 MEQ SR TABLET PO SCH (08:33)
[2019-12-16] MEDS: MAGNESIUM OXIDE 400 MG TAB (MAG-OX) PO SCH (08:33)
[2019-12-16] MEDS: TERAZOSIN 5 MG CAP PO SCH (08:34)
[2019-12-16] MEDS: SPIRONOLACTONE 25 MG TAB PO SCH (08:34)
[2019-12-16] MEDS: DICYCLOMINE 10 MG CAP PO SCH ×2 (08:34→21:09)
[2019-12-16] MEDS: MORPHINE 2 MG/ML 1ML VIAL (J2270) IV PRN (08:35)
--- NOTE | 2019-12-16 09:50 | IPN ---
DATE OF SERVICE: 12/16/2019 Mr. Blake was seen and examined this morning during bedside rounds with Dr. Morillo at bedside. The patient states that he slept relatively well last night. He believes he got couple of hours of sleep. He is complaining of having mucus build up in his lungs and he is unable to cough it out. He does note that during conversation he is falling asleep with conversation and does feel a little tired. The patient continues to complain of low appetite and currently has a dietary consult on board. Nursing states that patient was stable overnight with occasional premature ventricular contractions (PVCs) with no complaints of chest pain or shortness of breath. Telemetry was reviewed, continued to show occasional PVCs throughout the night. No sustained ventricular tachycardia (V-tach) and heart rate was less than 100 beats per minute. PHYSICAL EXAMINATION: VITAL SIGNS: Temperature 95.6, pulse 96, respiration 24, blood pressure 111/51 (MAP 71), pulse oximetry 98% on 2 liters of nasal cannula. Intake total 690 mL, output total 1150 mL, balance negative 460 mL. GENERAL: This is an 79-year-old cachectic male, laying in bed, able to speak in longer sentences about 6-8 words without shortness of breath. No accessory muscle use. HEENT: Atraumatic, normocephalic, bitemporal wasting. Prominent zygomatic cheek bones. Pupils equal, round and reactive. Very poor dentition. No lymphadenopathy. No tracheal deviations. No subcutaneous emphysema. RESPIRATORY: Continues to have diminished breath sounds bilaterally up to two-thirds of the lung. Dullness to percussion as well bilaterally. Clear to auscultate in the upper lobes. CARDIOVASCULAR: Irregularly irregular, currently rate controlled, 3/6 systolic ejection murmur at the right second intercostal space that radiates to the carotids bilaterally. Continues to have jugular venous distention (JVD) but has improved slightly. CHEST: Papillary rash over the right shoulder has improved significantly. ABDOMEN: Soft, nontender. EXTREMITIES: Significant 2+ pitting edema bilaterally has improved for it is more up to right above ankles versus up to mid thighs. Peripherally inserted central catheter (PICC) line in place in the right upper extremity nonerythematous, no discharge noted, in good position. NEUROLOGIC: Alert and oriented times three. Kind of fatigued during exam. LABORATORIES: HEMATOLOGY: WBC 9.2, hemoglobin 9.7, hematocrit 32.1, platelets 263. CHEMISTRIES: Sodium 139, potassium 3.5, chloride 98, carbon dioxide 30, anion gap 11, BUN 36, creatinine 0.91, GFR greater than 60.0, fasting glucose 153, calcium 8.1. Blood culture times two negative for growth at 48 hours. No new imaging. CARDIAC MEDICATION: - metoprolol 1.25 mg every 6 hours by mouth - furosemide 40 mg every 6 hours intravenously - rivaroxaban 20 mg daily - potassium chloride 10 mEq daily ASSESSMENT AND PLAN: This is an 79-year-old male with a pertinent medical history of severe aortic stenosis awaiting for transcatheter aortic valve replacement (TAVR), congestive heart failure with ejection fraction of 30-35%, who is admitted for worsening decompensated heart failure. IMPRESSION: 1. Dyspnea secondary to decompensated heart failure secondary to severe aortic stenosis. 2. Severe aortic stenosis, mean gradient 49, awaiting TAVR. 3. Decompensated heart failure with ejection fraction 30-35%. 4. Atrial fibrillation with left appendage clot, currently on Xarelto and metoprolol tartrate 12.5 mg. 5. History of recurrent bacteremia, possible source pneumonia versus urinary tract infection (UTI) currently on IV antibiotics until 01/04/2020. 6. History of urinary retention. 7. History of chronic obstructive pulmonary disease (COPD). 8. Severe protein caloric malnutrition. 9. Macrocystic anemia. 10. Transaminitis possible secondary to portal congestion from right heart failure due to problem #2. PLAN: From a cardiovascular standpoint, patient continues to be significantly fluid overloaded. He was only diuresed yesterday relatively about 1 liter while on furosemide 40 mg every 6 IV. His BUN and creatinine levels continue be stable, so we do recommend increasing his furosemide to 80 mg every 6 hours with the same hold parameters. We need to be slightly more aggressive with his diuresing for he is severely fluid overloaded. We are kind of guarded on the patient's prognosis for he is decompensating very fast. On his last admission, last week, the patient was able to diurese a significant amount with just 20 mg of furosemide and is barely diuresing with 40 every 6 at this current time. We will see how tolerates the 80 mg. For his occasional PVCs that he is having his potassium has been well at 3.6. Studies have shown that if you put his potassium closer to 4.0 that patients are more likely to have less arrhythmias. We have added a potassium sparing drug such as spironolactone 25 mg daily. We will monitor his potassium levels. As well as potassium chloride 10 mEq has been added on, so we will make sure to closely follow his potassium level so he does not become hyperkalemic. For his atrial fibrillation, his heart rate is more controlled today with the 12.5 every 6 hours with the hold parameters. Will continue as such. For his severe aortic stenosis, we have discussed the case with Dr. Tapia and at this current time we had to treat his underlying bacteremia prior to being stable for transfer. So, at this time, we will give him more fluid optimized and consider then about transfer. We are slightly susceptible of the patient's prognosis but we will follow along with the patient while he is admitted. SONJA
[2019-12-16] MEDS: LEVALBUTEROL 1.25 MG/0.5 ML CONCENTRATE NEB INH PRN (10:12)
[2019-12-16] MEDS: cefTRIAXone SOD 2 GM in D5W MINI-BAG PLUS 50 ML IV SCH ×2 (10:27→21:52)
--- NOTE | 2019-12-16 11:36 | IPNPDOC ---
Date Seen The patient was seen on 12/16/19. Progress Note SUBJECTIVE: Patient was interviewed and examined in his hospital room. His condition remained stable overnight with occasional PVCs per telemetry. His urinary output remained less than the 2L goal despite furosemide 40 mg Q6H. He shares that he was able to have a few hours of restful sleep though his anxiety continues to persist. This morning, he denies any chest pain and reports his breathing unchanged from yesterday's examination. Otherwise, he has no trouble urinating, is reportedly eating and drinking well, and is comfortable. OBJECTIVE PHYSICAL EXAMINATION: VITAL SIGNS: Please see below. GENERAL APPEARANCE: Laying in bed, cachectic, appears stated age, no acute distress, calm, cooperative HEENT: EOMI, PERRLA, neck is supple with no thyromegaly or lymphadenopathy, very poor dentition CHEST: There are several bruises and telangiectasias over his chest RESPIRATORY: Crackles are appreciated bilaterally up to the middle lobes, with no other adventitious breath sounds CARDIOVASCULAR: JVD is is noted to be about 9 cm above this sternal angle, irregularly irregular rhythm , 4/6 systolic ejection murmur heard very loudly in the right upper sternal border that radiates to the carotids. PMI is displaced ABDOMEN: Soft, nontender to palpation in all four quadrants, no masses/organ omegaly EXTREMITIES: Patient has 2+ pitting edema up to the thighs, PICC line in place in RUE. no other cyanosis or edema noted NEUROLOGICAL: Cranial nerves II through XII are intact, No obvious focal deficits PSYCHIATRIC: normal mood/affect Skin: Many bruises all over upper extremities and pupuric rash over R shoulder LN: No significant cervical or inguinal lymphadenopathy LABORATORY DATA: See below. IMAGIND TRANSTHOROACIC ECHOCARDIOGRAM 11/24/2019: 1. Left ventricular cavity size is moderately dilated with mild increase in wall thickness. Right ventricle is mildly dilated with reduced function. 2. Left ventricular systolic function is moderately reduced with estimated ejection fraction of 30-35%. 3. Left ventricular wall motion is moderate diffuse global hypokinesis. 4. Left ventricular diastolic function is abnormal with elevated filling pressure. 5. Severe biatrial enlargement. 6. Estimated pulmonary artery pressure is 50 mmHg 7. 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 Aortic valve V max is 4.41 M/Sec, max/mean gradient 78/49 mmHg consistent with severe aortic stenosis. At least moderate aortic regurgitation. There are 2 jets. TRANSESOPHAGEAL ECHOCARDIOGRAM 11/26/2019 There is a clot in the atrial appendage. All findings same as above. MICROBIOLOGY: Please see below. ASSESSMENT: This is an 79-year-old male with history of severe aortic stenosis and congestive heart failure who presents with shortness of breath, weakness and lower extremity swelling concerning for congestive heart failure exacerbation versus worsening aortic stenosis. He will be [facility] for diuresis at this time. PLAN: 1. Decompensated systolic and diastolic Congestive heart failure, NYHA class III: 2/2 severe aortic stenosis. Left ventricular ejection fraction 30-35%. -Cardiology on board and we appreciate their assistance with the management of this patient. -IV Lasix increased to 80 mg every 6 hours, per cardiology with titration to 2 L being diuresed daily -Spironolactone 25mg daily added, Potassium goal of 4.0 -Continue Metoprolol 12.5 mg every 6 hours -Strict I/O with 2g Sodium diet, daily weights -BNP elevated at 30,820 2. Severe aortic stenosis: AV mean gradient 78 mmHg -Will take caution with diuresis so as to be excessive in decreasing preload, which could worsen his aortic stenosis. goal diuresis is only 2 L per day -Patient is known candidate for TAVR. Cardiology attempted transfer. However, the patient does not qualify due to his ongoing bacteremia. 3. Chronic Atrial fibrillation, non-valvular: -Continue Xarelto -Continue Metoprolol 12.5 mg every 6 hours 4. History of Enterococcus bacteremia: -Currently on IV Ampicillin and IV Rocephin. Will continue via PICC line -No infectious symptoms at this time -Colonoscopy negative, no findings of endocarditis -Will repeat blood cultures 5. Mobile clot in Left atrial appendage: received IV heparin at [facility] -Currently on Xarelto 6. Urinary retention: -Continue home Terazosin 7. COPD: -Continue home inhalers 7. Deconditioning: -PT/OT ordered 8. Chronic anemia: -Hgb stable at this moment. ASA stopped, as it was not needed 9. Severe protein calorie malnutrition: -Albumin found to be 2.2 -Patient has had 60 lb weight loss over the past several months -Speech therapy consult for swallowing -Patient will need dietary consult 10. Anxiety: -1mg IV Morphine for pain/anxiety -Ramelteon for sleep -Would not suggest giving the patient hydroxyzine as it causes urinary retention and is anticholinergic. DISPO: Pending improvement in shortness of breath and further optimization of congestive heart failure. Possible discharge back to [facility] rehabilitation once optimized. VS, I&O, 24H, Fishbone Vital Signs/I&O Vital Signs Date Time Temp Pulse Resp B/P (MAP) Pulse Ox O2 Delivery O2 Flow Rate FiO2 12/16/19 08:45 18 Nasal Cannula 2.0 12/16/19 08:34 111/51 12/16/19 08:00 97.1 90 99 I&O- Last 24 Hours up to 6 AM 12/16/19 06:00 Intake Total 990 ml Output Total 1300 ml Balance -310 ml Laboratory Data 24H LABS Laboratory Tests 2 12/16/19 05:58: Nucleated Red Blood Cells % (auto) 2.3H, Anion Gap 11, Glomerular Filtration Rate > 60.0, Calcium Level 8.1L CBC/BMP Laboratory Tests 12/16/19 05:58 Microbiology Microbiology 12/13/19 Blood Culture - Preliminary, Resulted No Growth after 48 hours. All Specime... 12/13/19 Blood Culture - Preliminary, Resulted No Growth after 48 hours. All Specime... GME ATTESTATION GME ATTESTATION My faculty preceptor for this patient encounter was physically present during the encounter and was fully available. All aspects of the patient interview, examination, medical decision making process, and medical care plan development were reviewed and approved by the faculty preceptor. The faculty preceptor is aware and concurs with the plan as stated in the body of this note and will at test to such by his/her cosignature. NANCIE OWEN MD Dec 16, 2019 11:36 KEVON DEL RIO DO Dec 16, 2019 17:54
[2019-12-16 12:00] VITALS: BP 118/69
[2019-12-16] MEDS: FUROSEMIDE 100 MG/10 ML VIAL (J1940) IV SCH ×2 (12:34→17:39)
[2019-12-16 16:00] VITALS: BP 103/56
[2019-12-16] MEDS ORDERED: LEVALBUTEROL HFA 45MCG/ACT 15 GM INHALER INH PRN (16:45)
[2019-12-16] MEDS: RIVAROXABAN 20 MG TAB (XARELTO) PO SCH (17:38)
[2019-12-16 20:00] VITALS: BP 120/59
[2019-12-16] MEDS: RAMELTEON 8 MG TAB (ROZEREM) PO SCH (21:09)
[2019-12-17] VITALS (7 sets, daily range): BP systolic 90–127; BP diastolic 55–70
[2019-12-17] MEDS: FUROSEMIDE 100 MG/10 ML VIAL (J1940) IV SCH ×5 (00:27→23:40)
[2019-12-17] MEDS: METOPROLOL TART 12.5 MG PER 1/2 TAB PO SCH ×5 (00:28→23:37)
[2019-12-17] MEDS: AMPICILLIN SOD 2 GM in D5W MINI-BAG PLUS 100 ML IV SCH ×6 (00:55→21:38)
[2019-12-17] MEDS: MORPHINE 2 MG/ML 1ML VIAL (J2270) IV PRN (05:11)
[2019-12-17] MEDS: SODIUM CHLORIDE 0.9% INJ 10 ML SYR IV SCH ×2 (05:57→17:52)
[2019-12-17 06:05] LABS: HEMATOCRIT 33.5 % (42.0-52.0); MEAN CORPUSCULAR HEMOGLOBIN 32.9 pg (27.0-33.0); MEAN CORPUSCULAR HGB CONC 29.9 g/dl (32.0-36.5); MEAN CORPUSCULAR VOLUME 110.2 fl (80.0-96.0); PLATELET COUNT, AUTOMATED 262 10^3/uL (150-450); RED BLOOD COUNT 3.04 10^6/uL (4.30-6.10); WHITE BLOOD COUNT 11.5 10^3/uL (4.0-10.0)
[2019-12-17 06:30] LABS: BLOOD UREA NITROGEN 41 MG/DL (7-18); CALCIUM LEVEL 8.2 MG/DL (8.8-10.2); CARBON DIOXIDE LEVEL 27 MEQ/L (21-32); CHLORIDE LEVEL 99 MEQ/L (98-107); CREATININE FOR GFR 1.04 MG/DL (0.70-1.30); GLOMERULAR FILTRATION RATE > 60.0 (>35); GLUCOSE, FASTING 146 MG/DL (70-100); SODIUM LEVEL 138 MEQ/L (136-145)
[2019-12-17] MEDS: ADVAIR HFA 230/21MCG INHALER INH SCH ×2 (07:28→20:07)
[2019-12-17] MEDS: SPIRONOLACTONE 25 MG TAB PO SCH (08:54)
[2019-12-17] MEDS: POTASSIUM CHLORIDE 10 MEQ SR TABLET PO SCH (08:55)
[2019-12-17] MEDS: DICYCLOMINE 10 MG CAP PO SCH ×2 (08:55→21:37)
[2019-12-17] MEDS: TERAZOSIN 5 MG CAP PO SCH ×2 (08:55→08:59)
[2019-12-17] MEDS: cefTRIAXone SOD 2 GM in D5W MINI-BAG PLUS 50 ML IV SCH ×2 (09:43→21:37)
--- NOTE | 2019-12-17 09:47 | IPN ---
DATE: 12/17/2019 Mr. Blake was seen and examined this morning during bedside rounds. He was sleeping when we walked in the room but was very easily arousable. He states that he slept very well last night, but he still continues to be significantly tired. He is currently on contact precaution for possible COVID exposure. He continues to complain of nonproductive cough that is irritating his throat. Denies any shortness of breath (SOB), worsening breathing problems or chest pain. He continues to be on 2 liters of nasal cannula. He has had very minimum output since midnight until now, a total of 200 mL, after getting his 80 mg of furosemide scheduled every 6 hours. His telemetry continues to show nonsustained V-tach with some ectopic beats. He is relatively rate controlled, average rate about 80-90 beats per minute. He is sustaining under 110 beats relatively from looking. He did have some bradycardic episodes early this morning at 50 beats per minute but he was asymptomatic. The patient does cry out for nursing due to anxiety attacks, but no other events were reported by nursing. PHYSICAL EXAMINATION: VITAL SIGNS: Temperature 97.3, pulse 86, respirations 28, blood pressure 110/61 (MAP 77), pulse oximetry 98% on 2 liters of nasal cannula. Intake total positive 1370 mL, output total positive 1225 mL with a net balance of positive 145 mL. His weight this morning is 84.5 kg. GENERAL: This is an 79-year-old cachectic male, laying in bed, able to speak in longer sentences, more than 6-8 words without shortness of breath. No accessory muscle use. He is slightly tired during exam and will doze off. HEENT: Atraumatic, normocephalic, bitemporal wasting. Prominent zygomatic bones. Pupils equal, round and reactive. Very poor dentition. No lymphadenopathy. No subcutaneous emphysema. RESPIRATORY: Continues to have diminished breath sounds bilaterally, but has improved since yesterday, can hear some aeration in the lower lobes. Continues to have dullness to percussion as well bilaterally. Clear to auscultate in the upper lobes. CARDIOVASCULAR: Irregularly irregular, currently rate controlled, 3/6 systolic ejection murmur radiating towards the carotids on the right second intercostal space. Continues to have jugular venous distention (JVD) but has improved slightly as well. CHEST: Papillary rash over the right shoulder continues to improve and telangiectasia has receded on the left chest wall. ABDOMEN: Soft, nontender. EXTREMITIES: Significant 3+ pitting edema bilaterally, has actually worsened since yesterday. PICC line in place on the right upper extremity, no discharge noted, in good position. NEUROLOGIC: Alert and oriented times three, but slightly lethargic during exam and dozing off. LABORATORIES: WBC 11.5, hemoglobin 10.0, hematocrit 33.5, platelet count 262. CHEMISTRIES: Sodium 138, potassium 4.0, chloride 99, carbon dioxide 27, anion gap 12, BUN 41, creatinine 1.04, fasting glucose 146, calcium 8.2. Blood culture times two negative for growth for 72 hours. No new imaging. CARDIAC MEDICATION: - furosemide 80 mg every 6 hours - IV potassium 40 mEq daily - spironolactone 25 mg daily by mouth - metoprolol tartrate 12.5 mg every 6 hours by mouth - Xarelto 20 mg daily ASSESSMENT AND PLAN: This is an 79-year-old male with a pertinent medical history of severe aortic stenosis awaiting transcatheter aortic valve replacement (TAVR), congestive heart failure with ejection fraction of 30-35%, who was admitted for decompensated heart failure secondary to severe aortic stenosis. IMPRESSION: 1. Severe aortic stenosis, mean gradient 49, awaiting TAVR. 2. Decompensated heart failure, ejection fraction 30-35%. 3. Atrial fibrillation with left appendage clot, currently on Xarelto and metoprolol 12.5 mg every 6 hours. 4. History of recurrent bacteremia, possible source pneumonia versus urinary tract infection (UTI) currently on IV antibiotics until 01/04/2020. 5. History of urinary retention. 6. History of chronic obstructive pulmonary disease (COPD). 7. Severe protein caloric malnutrition. 8. Microcystic anemia. PLAN: From a cardiovascular standpoint, patient continues to deteriorate. He appears significantly fluid overloaded. He has actually worsened since yesterday. Event though his lung sounds are slightly improved, his lower extremity edema has worsened to 3+ pitting edema bilaterally. He is currently on 80 mg of furosemide every 6 hours IV and he is not responding appropriately for he has only put out a total of 1.2 liters in the last 24 hours with the current regimen. Based on all of this, the patient continues to have poor cardiac output and worsening left ventricular systolic function. At the current time, we have spoken to [facility] previously in the past for a possible transfer for TAVR, which because of the patient's current bacteremia treatment regimen, he is not a candidate until after he has completed antibiotics. Because of his continuing decompensation, we will call [facility] again to discussed a possible valvular angioplasty. I am unsure if they are agreeable of everything, that is going on with the COVID. For his atrial fibrillation, his rate is currently more controlled at 12.5 every 6 hours with the hold parameters. Will continue as such. The possible consideration of dobutamine we would not recommend it on the fact that the patient is on atrial fibrillation currently rate controlled. If you give dobutamine to help with systolic function, that would help with contractility, the patient will go tachyarrhythmic which would be cumbersome on the fact that the patient is on metoprolol at this current time. At this current time we do not recommend any changes on his cardiac medications. Will continue with prescribed. Please continue to monitor his potassium level as he continues to b diane spironolactone 25 mg daily as well as potassium chloride 40 mEq daily. We are going to make sure he does not go hyperkalemic with the current regimen. At the current time, our plan is to call [facility] to see if possible valvular angioplasty. We are very guarded of the patient's prognosis for his rapid decompensation on the current regimen.
[2019-12-17] MEDS ORDERED: ONDANSETRON 4MG/2ML VIAL (J2405) IV PRN (13:45)
[2019-12-17] MEDS ORDERED: AZITHROMYCIN 250MG TABLET PO ONE (15:00)
--- NOTE | 2019-12-17 15:27 | IPNPDOC ---
Date Seen The patient was seen on 12/17/19. Progress Note SUBJECTIVE: Patient was interviewed and examined in his room. He continues to complain of shortness of breath and now has cough productive of yellow sputum. He is complaining of nausea and is very lethargic. His lower extremity edema has extended further up to his sacrum. OBJECTIVE PHYSICAL EXAMINATION: VITAL SIGNS: Please see below. GENERAL APPEARANCE: Laying in bed, cachectic, appears stated age, no acute distress, calm, cooperative HEENT: EOMI, PERRLA, neck is supple with no thyromegaly or lymphadenopathy, very poor dentition CHEST: There are several bruises and telangiectasias over his chest RESPIRATORY: Crackles are appreciated bilaterally up to the middle lobes, with no other adventitious breath sounds CARDIOVASCULAR: JVD is is noted to be about 9 cm above this sternal angle, irregularly irregular rhythm , 4/6 systolic ejection murmur heard very loudly in the right upper sternal border that radiates to the carotids. PMI is displaced ABDOMEN: Soft, nontender to palpation in all four quadrants, no masses/organomegaly EXTREMITIES: Patient has 3+ pitting edema up the sacrum. PICC line in place in RUE. no other cyanosis or edema noted NEUROLOGICAL: Cranial nerves II through XII are intact, No obvious focal deficits PSYCHIATRIC: normal mood/affect Skin: Many bruises all over upper extremities and pupuric rash over R shoulder LN: No significant cervical or inguinal lymphadenopathy LABORATORY DATA: See below. IMAGIND TRANSTHOROACIC ECHOCARDIOGRAM 11/24/2019: 1. Left ventricular cavity size is moderately dilated with mild increase in wall thickness. Right ventricle is mildly dilated with reduced function. 2. Left ventricular systolic function is moderately reduced with estimated ejection fraction of 30-35%. 3. Left ventricular wall motion is moderate diffuse global hypokinesis. 4. Left ventricular diastolic function is abnormal with elevated filling pr essure. 5. Severe biatrial enlargement. 6. Estimated pulmonary artery pressure is 50 mmHg 7. 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 Aortic valve V max is 4.41 M/Sec, max/mean gradient 78/49 mmHg consistent with severe aortic stenosis. At least moderate aortic regurgitation. There are 2 jets. TRANSESOPHAGEAL ECHOCARDIOGRAM 11/26/2019 There is a clot in the atrial appendage. All findings same as above. MICROBIOLOGY: Please see below. ASSESSMENT: This is an 79-year-old male with history of severe aortic stenosis and congestive heart failure who presents with shortness of breath, weakness and lower extremity swelling concerning for congestive heart failure exacerbation versus worsening aortic stenosis. He will be admitted to the medical surgical floor for diuresis at this time. PLAN: 1. Decompensated systolic and diastolic Congestive heart failure, NYHA class III: 2/2 severe aortic stenosis. Left ventricular ejection fraction 30-35%. -Cardiology on board and we appreciate their assistance with the management of this patient. -IV Lasix increased to 80 mg every 6 hours, per cardiology with titration to 2 L being diuresed daily -Spironolactone 25mg daily added, Potassium goal of 4.0 -Continue Metoprolol 12.5 mg every 6 hours -Strict I/O with 2g Sodium diet, daily weights -BNP elevated at 30,820 -Urine output has been consistently less than 2L daily. It appears the patient may be third-spacing and while albumin is low lasix may not be effective enough to diurese for his decompensated heart failure. -Patient will be tested for COVID-19 given shortness of breath, cough, yellow sputum, recent possible exposure. Azithromycin started. 2. Severe aortic stenosis: AV mean gradient 78 mmHg -Will take caution with diuresis so as to be excessive in decreasing preload, which could worsen his aortic stenosis. goal diuresis is only 2 L per day -Patient is known candidate for TAVR. Cardiology attempted transfer. However, the patient does not qualify due to his ongoing bacteremia. 3. Chronic Atrial fibrillation, non-valvular: -Continue Xarelto -Continue Metoprolol 12.5 mg every 6 hours with hold parameters 4. History of Enterococcus bacteremia: -Currently on IV Ampicillin and IV Rocephin with end date 01/04/20. Will continue via PICC line -No infectious symptoms at this time -Colonoscopy negative, no findings of endocarditis -Blood cultures here negative to date. 5. Mobile clot in Left atrial appendage: received IV heparin at [facility] -Currently on Xarelto 6. Urinary retention: -Continue home Terazosin 7. COPD: -Continue home inhalers 7. Deconditioning: -PT/OT ordered 8. Chronic anemia: -Hgb stable at this moment. ASA stopped, as it was not needed 9. Severe protein calorie malnutrition: -Albumin 2.2 -Patient has had 60 lb weight loss over the past several months 10. Anxiety: -1mg IV Morphine for pain/anxiety -Ramelteon for sleep DISPO: Pending improvement in shortness of breath and further optimization of congestive heart failure. Possible discharge back to [facility] rehabilitation once optimized. VS, I&O, 24H, Fishbone Vital Signs/I&O Vital Signs Date Time Temp Pulse Resp B/P (MAP) Pulse Ox O2 Delivery O2 Flow Rate FiO2 12/17/19 12:00 96.3 93 30 98/60 (73) Nasal Cannula 2.0 12/17/19 08:00 97 I&O- Last 24 Hours up to 6 AM 12/17/19 06:00 Intake Total 1530 ml Output Total 1125 ml Balance 405 ml Laboratory Data 24H LABS Laboratory Tests 2 12/17/19 05:55: Nucleated Red Blood Cells % (auto) 1.6H, Anion Gap 12, Glomerular Filtration Rate > 60.0, Calcium Level 8.2L CBC/BMP Laboratory Tests 12/17/19 05:55 Microbiology Microbiology 12/17/19 Coronavirus COVID-19 PCR (JUNE), Received Pending 12/13/19 Blood Culture - Preliminary, Resulted No Growth after 72 hours. All specime... 12/13/19 Blood Culture - Preliminary, Resulted No Growth after 72 hours. All specime... GME ATTESTATION GME ATTESTATION My faculty preceptor for this patient encounter was physically present during the encounter and was fully available. All aspects of the patient interview, examination, medical decision making process, and medical care plan development were reviewed and approved by the faculty preceptor. The faculty preceptor is aware and concurs with the plan as stated in the body of this note and will attest to such by his/her cosignature. NANCIE OWEN MD Dec 17, 2019 14:40
[2019-12-17] MEDS: RIVAROXABAN 20 MG TAB (XARELTO) PO SCH (17:52)
[2019-12-17] MEDS: RAMELTEON 8 MG TAB (ROZEREM) PO SCH (21:37)
[2019-12-18] VITALS (7 sets, daily range): BP systolic 91–122; BP diastolic 55–67
[2019-12-18] MEDS: AMPICILLIN SOD 2 GM in D5W MINI-BAG PLUS 100 ML IV SCH ×6 (01:34→21:00)
[2019-12-18] MEDS: METOPROLOL TART 12.5 MG PER 1/2 TAB PO SCH ×3 (05:23→16:55)
[2019-12-18] MEDS: SODIUM CHLORIDE 0.9% INJ 10 ML SYR IV SCH ×2 (05:27→16:55)
[2019-12-18] MEDS: FUROSEMIDE 100 MG/10 ML VIAL (J1940) IV SCH ×4 (05:27→23:31)
[2019-12-18] MEDS ORDERED: POTASSIUM CHLORIDE 10 MEQ SR TABLET PO ONE (05:45)
[2019-12-18 06:05] LABS: HEMATOCRIT 34.3 % (42.0-52.0); HEMOGLOBIN 10.4 g/dl (13.5-17.5); MEAN CORPUSCULAR HEMOGLOBIN 33.7 pg (27.0-33.0); MEAN CORPUSCULAR HGB CONC 30.3 g/dl (32.0-36.5); PLATELET COUNT, AUTOMATED 243 10^3/uL (150-450); RED BLOOD COUNT 3.09 10^6/uL (4.30-6.10); WHITE BLOOD COUNT 18.1 10^3/uL (4.0-10.0)
[2019-12-18 06:26] LABS: CALCIUM LEVEL 8.2 MG/DL (8.8-10.2); CREATININE FOR GFR 1.35 MG/DL (0.70-1.30); GLOMERULAR FILTRATION RATE 54.1 (>35); POTASSIUM SERUM 4.5 MEQ/L (3.5-5.1)
[2019-12-18] MEDS: ADVAIR HFA 230/21MCG INHALER INH SCH ×2 (07:37→20:33)
[2019-12-18 08:39] LABS: ALBUMIN 2.1 GM/DL (3.2-5.2); BILIRUBIN,DIRECT 0.5 MG/DL (0.0-0.2); BILIRUBIN,TOTAL 0.8 MG/DL (0.2-1.0); C REACTIVE PROTEIN QUANTITATIV 1.78 MG/DL (0.00-0.30); TOTAL PROTEIN 5.8 GM/DL (6.4-8.2)
[2019-12-18] MEDS ORDERED: AZITHROMYCIN 250MG TABLET PO SCH (09:00)
[2019-12-18] MEDS: TERAZOSIN 5 MG CAP PO SCH (09:00)
--- NOTE | 2019-12-18 09:18 | REP ---
Clinical: Leukocytosis. Hypoxemia. Comparison: 12/13/2019. Findings: The cardiac silhouette is again enlarged and similar to prior examination. Bilateral perihilar and lower lobe opacities suggest atelectasis, effusions, and possible pulmonary vascular congestion. No pneumothorax. Skeletal structures are intact. Right PICC line with tip in the SVC. Impression: 1. Cardiomegaly and lower lobe opacities similar to prior examinations suggesting CHF/pulmonary vascular congestion with bibasilar infiltrates and pleural effusions. 2. While the cardiac silhouette may represent cardiomegaly. Pericardial effusion cannot definitively be excluded. Electronically Signed by Girish Zhang MD 12/18/2019 09:09 A
[2019-12-18] MEDS: cefTRIAXone SOD 2 GM in D5W MINI-BAG PLUS 50 ML IV SCH ×2 (09:59→20:52)
[2019-12-18] MEDS: POTASSIUM CHLORIDE 10 MEQ SR TABLET PO SCH (10:00)
[2019-12-18] MEDS: DICYCLOMINE 10 MG CAP PO SCH ×2 (10:01→21:00)
[2019-12-18] MEDS: SPIRONOLACTONE 25 MG TAB PO SCH (10:01)
--- NOTE | 2019-12-18 15:03 | IPNPDOC ---
Date Seen The patient was seen on 12/18/19. Progress Note SUBJECTIVE: Patient was interviewed and examined in his room. We had a conversation regarding his CODE STATUS and the fact that he continues to decompensate. He is very scared to withdraw any care at this point. He wishes to speak with his and his daughter in to see them in person, but understands that he cannot do this unless he is comfort measures only. He is short of breath, coughing, producing yellow sputum and very lethargic. He states he wishes to get out of bed, but he has no energy to do so. He is very thirsty. He was nauseous yesterday but this was relieved by Zofran. Myself, Dr. Morgan and Dr. Hoff have spoken to the patient's daughter and regarding the patient's poor condition and lack of response to diuresis. It has been conveyed to family that the patient's prognosis is poor. OBJECTIVE PHYSICAL EXAMINATION: VITAL SIGNS: Please see below. GENERAL APPEARANCE: Laying in bed, cachectic, lethargic, appears stated age, no acute distress, calm, cooperative HEENT: EOMI, PERRLA, neck is supple with no thyromegaly or lymphadenopathy, very poor dentition CHEST: There are several bruises and telangiectasias over his chest RESPIRATORY: Crackles and rhonchi are appreciated bilaterally up to the upper lobes CARDIOVASCULAR: JVD is is noted to be about 10 cm above this sternal angle, irregularly irregular rhythm , 4/6 systolic ejection murmur heard very loudly in the right upper sternal border that radiates to the carotids. PMI is displaced ABDOMEN: Soft, nontender to palpation in all four quadrants, no masses/organomegaly EXTREMITIES: Patient has 3+ pitting edema up the sacrum. PICC line in place in RUE. no other cyanosis or edema noted NEUROLOGICAL: Cranial nerves II through XII are intact, No obvious focal deficits PSYCHIATRIC: normal mood/affect Skin: Many bruises all over upper extremities and pupuric rash over R shoulder LN: No significant cervical or inguinal lymphadenopathy LABORATORY DATA: See below. IMAGIND TRANSTHOROACIC ECHOCARDIOGRAM 11/24/2019: 1. Left ventricular cavity size is moderately dilated with mild increase in wall thickness. Right ventricle is mildly dilated with reduced function. 2. Left ventricular systolic function is moderately reduced with estimated ejection fraction of 30-35%. 3. Left ventricular wall motion is moderate diffuse global hypokinesis. 4. Left ventricular diastolic function is abnormal with elevated filling pressure. 5. Severe biatrial enlargement. 6. Estimated pulmonary artery pressure is 50 mmHg 7. 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 Aortic valve V max is 4.41 M/Sec, max/mean gradient 78/49 mmHg consistent with severe aortic stenosis. At least moderate aortic regurgitation. There are 2 jets. TRANSESOPHAGEAL ECHOCARDIOGRAM 11/26/2019 There is a clot in the atrial appendage. All findings same as above. MICROBIOLOGY: Please see below. ASSESSMENT: This is an 79-year-old male with history of severe aortic stenosis and congestive heart failure who presents with shortness of breath, weakness and lower extremity swelling concerning for congestive heart failure exacerbation versus worsening aortic stenosis. He will be admitted to the medical surgical floor for diuresis at this time. PLAN: 1. Decompensated systolic and diastolic Congestive heart failure, NYHA class III: 2/2 severe aortic stenosis. Left ventricular ejection fraction 30-35%. -Cardiology on board and we appreciate their assistance with the management of this patient. -IV Lasix increased to 80 mg every 6 hours, per cardiology with titration to 2 L being diuresed daily -Spironolactone 25mg daily added, Potassium goal of 4.0 -Continue Metoprolol 12.5 mg every 6 hours -Strict I/O with 2g Sodium diet, daily weights -BNP elevated at 30,820 -Urine output has been consistently less than 2L daily. It appears the patient may be third-spacing and while albumin is low lasix may not be effective enough to diurese for his decompensated heart failure. -Patient will be tested for COVID-19 given shortness of breath, cough, yellow sputum, recent possible exposure. Azithromycin started. 2. Severe aortic stenosis: AV mean gradient 78 mmHg -Will take caution with diuresis so as to be excessive in decreasing preload, which could worsen his aortic stenosis. goal diuresis is only 2 L per day -Patient is known candidate for TAVR. Cardiology attempted transfer. However, the patient does not qualify due to his ongoing bacteremia. 3. Chronic Atrial fibrillation, non-valvular: -Continue Xarelto -Continue Metoprolol 12.5 mg every 6 hours with hold parameters 4. History of Enterococcus bacteremia: -Currently on IV Ampicillin and IV Rocephin with end date 01/04/20. Will continue via PICC line -No infectious symptoms at this time -Colonoscopy negative, no findings of endocarditis -Blood cultures here negative to date. 5. Mobile clot in Left atrial appendage: received IV heparin at [facility] -Currently on Xarelto 6. Urinary retention: -Continue home Terazosin 7. COPD: -Continue home inhalers 7. Deconditioning: -PT/OT ordered 8. Chronic anemia: -Hgb stable at this moment. ASA stopped, as it was not needed 9. Severe protein calorie malnutrition: -Albumin 2.2 -Patient has had 60 lb weight loss over the past several months 10. Anxiety: -1mg IV Morphine for pain/anxiety -Ramelteon for sleep DISPO: Goals of care discussion in place. Continue diuresis. VS, I&O, 24H, Fishbone Vital Signs/I&O Vital Signs Date Time Temp Pulse Resp B/P (MAP) Pulse Ox O2 Delivery O2 Flow Rate FiO2 12/18/19 12:52 97.1 103 24 115/67 (83) 93 Nasal Cannula 2.0 I&O- Last 24 Hours up to 6 AM 12/18/19 06:00 Intake Total 790 ml Output Total 350 ml Balance 440 ml Laboratory Data 24H LABS Laboratory Tests 2 12/18/19 05:40: Nucleated Red Blood Cells % (auto) 1.4H, Anion Gap 13, Glomerular Filtration Rate 54.1, Calcium Level 8.2L, Ferritin 428H, Total Bilirubin 0.8, Direct Biliru bin 0.5H, Aspartate Amino Transf (AST/SGOT) 785H, Alanine Aminotransferase (ALT/SGPT) 713H, Alkaline Phosphatase 380H, Lactate Dehydrogenase 783H, C- Reactive Protein, Quantitative 1.78H, Total Protein 5.8L, Albumin 2.1L, Albumin/Globulin Ratio 0.57L 12/18/19 09:48: CBC/BMP Laboratory Tests 12/18/19 05:40 Microbiology Microbiology 12/18/19 Blood Culture, Received Pending 12/17/19 Coronavirus COVID-19 PCR (JUNE), Received Pending 12/13/19 Blood Culture - Preliminary, Resulted No Growth after 72 hours. All specime... 12/13/19 Blood Culture - Preliminary, Resulted No Growth after 72 hours. All specime... GME ATTESTATION GME ATTESTATION My faculty preceptor for this patient encounter was physically present during the encounter and was fully available. All aspects of the patient interview, examination, medical decision making process, and medical care plan development were reviewed and approved by the faculty preceptor. The faculty preceptor is aware and concurs with the plan as stated in the body of this note and will attest to such by his/her cosignature. NANCIE OWEN MD Dec 18, 2019 15:03
[2019-12-18] MEDS: RIVAROXABAN 20 MG TAB (XARELTO) PO SCH (16:56)
[2019-12-18] MEDS ORDERED: BISACODYL 10 MG SUPP PR PRN (18:45)
[2019-12-18] MEDS ORDERED: ONDANSETRON 4MG/2ML VIAL (J2405) IV PRN (18:45)
[2019-12-18] MEDS ORDERED: SCOPOLAMINE 1MG TRANSDERMAL PATCH TOP PRN (18:45)
[2019-12-18] MEDS: RAMELTEON 8 MG TAB (ROZEREM) PO SCH (20:52)
[2019-12-18] MEDS: LORazepam 2 MG/ML VIAL (J2060) IV PRN (20:52)
[2019-12-19] MEDS: AMPICILLIN SOD 2 GM in D5W MINI-BAG PLUS 100 ML IV SCH ×3 (00:28→08:45)
[2019-12-19] MEDS: MORPHINE 2 MG/ML 1ML VIAL (J2270) IV PRN ×4 (01:32→20:14)
[2019-12-19] MEDS: SODIUM CHLORIDE 0.9% INJ 10 ML SYR IV SCH (06:00)
[2019-12-19] MEDS: LORazepam 2 MG/ML VIAL (J2060) IV PRN ×3 (06:00→20:14)
[2019-12-19] MEDS: FUROSEMIDE 100 MG/10 ML VIAL (J1940) IV SCH (06:00)
[2019-12-19] MEDS: SPIRONOLACTONE 25 MG TAB PO SCH (08:46)
[2019-12-19] MEDS ORDERED: LORazepam 2 MG/ML VIAL (J2060) As Ordered ONE (20:09)
[2019-12-20] MEDS: MORPHINE 2 MG/ML 1ML VIAL (J2270) IV PRN ×2 (02:30→05:01)
--- NOTE | 2019-12-20 16:01 | DS.PDOC ---
Discharge Summary General Date of Admission Dec 13, 2019 at 18:32 Date of Discharge 12/20/2019 Primary Care Physician: Toney Hercules M.D. Attending Physician: ADRIANA LANE DO Specialist/Consultants Involve: Liu Morillo MD Discharge Summary PROCEDURES PERFORMED DURING STAY: [None]. ADMITTING DIAGNOSES: 1. 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 Left ventricular ejection fraction 30-35%. 2. Severe aortic stenosis 3. E. faecalis bacteremia DISCHARGE DIAGNOSES: Respiratory failure COMPLICATIONS/CHIEF COMPLAINT: CHF. HISTORY OF PRESENT ILLNESS: Nacho Blake is an 79 YO with recurrent PNA, recent history of bacteremia on IV antibiotics, and severe aortic stenosis who presents from [facility] rehab with shortness of breath, weakness, increased leg swelling. He was recently hospitalized at [facility] and discharged on December 10, 2019 for congestive heart failure exacerbation and was diuresed about 2-3L. In addition, he was recently hospitalized in [facility] (10/21 - 11/01) for recurrent pneumonia. He notes that he has had pneumonia at least 3 separate times in the past 6 months. On that hospitalization, he was found to have bacteremia due to enterococcus faecalis. Source was not found--patient underwent UGI endoscopy and colonoscopy, TTE and TUNG and no cancer or endocarditis was found. He is currently undergoing IV antibiotic therapy until completion on 01/04/2020. In addition, he is undergoing rehabilitation in hopes of getting a TAVR. The patient reports that his shortness of breath and lower extremity swelling has worsened since his last hospitalization. He also reports he has not slept in 5 days. He has no known sick contacts. He sleeps on 2 pillows and is able to lay flat. Of note, he has lost over 60 pounds in the past 3 months. 10/22 blood culture x 2 with Enterococcus faecalis sensitive to Ampicillin Repeat blood culture /2 x2 NG HOSPITAL COURSE: Patient was admitted with SOB and lower extremity swelling concerning for congestive heart failure exacerbation. Patient has known severe aortic stenosis and resulting shortness of breath and dyspnea. Patient is not a candidate for TAVR at this time as he is completing a course of IV antibiotics (Ampicillin and Rocephin) for empiric treatment of E. faecalis endocarditis. End date is 01/04/2020. Patient found to be very deconditioned with severe protein calorie malnutrition. Cardiology was consulted and following. Despite increasing doses of Lasix the patient continued to accumulate fluid and became hypotensive. Due to known exposure to COVID-19 from staff member the patient was tested and was found to be negative. After a discussion with patient and family members regarding goals of care and the patient's lack of improvement, he decided to change his CODE STATUS to comfort measures only. He on 12/20/2019 at 0723 AM. DISCHARGE MEDICATIONS: Please see below. ALLERGIES: Please see below. PHYSICAL EXAMINATION ON DISCHARGE: VITAL SIGNS: Please see below. not performed LABORATORY DATA: Please see below. IMAGING: CXR: Findings: The cardiac silhouette is again enlarged and similar to prior examination. Bilateral perihilar and lower lobe opacities suggest atelectasis, effusions, and possible pulmonary vascular congestion. No pneumothorax. Skeletal structures are intact. Right PICC line with tip in the SVC. Impression: 1. Cardiomegaly and lower lobe opacities similar to prior examinations suggesting CHF/pulmonary vascular congestion with bibasilar infiltrates and pleural effusions. 2. While the cardiac silhouette may represent cardiomegaly. Pericardial effusion cannot definitively be excluded. PROGNOSIS: n/a ACTIVITY: n/a DIET: n/a DISCHARGE PLAN: n/a DISPOSITION: 20 . DISCHARGE CONDITION: [Stable]. TIME SPENT ON DISCHARGE: Greater than 35 minutes. Vital Signs/I&Os Vital Signs Date Time Temp Pulse Resp B/P (MAP) Pulse Ox O2 Delivery O2 Flow Rate FiO2 12/19/19 21:00 2.0 12/19/19 12:48 Nasal Cannula 12/19/19 01:42 22 12/18/19 16:55 98 111/56 12/18/19 16:15 97.8 92 I&O- Last 24 Hours up to 6 AM 12/20/19 06:00 Intake Total 0 ml Output Total 0 ml Balance 0 ml Microbiology Microbiology 12/18/19 Blood Culture - Preliminary, Resulted No growth after 24 hours . All specim... 12/17/19 Coronavirus COVID-19 PCR (JUNE) - Final, Complete 12/13/19 Blood Culture - Final, Complete NO GROWTH AFTER 5 DAYS 12/13/19 Blood Culture - Final, Complete NO GROWTH AFTER 5 DAYS Discharge Medications Scheduled Ampicillin Sodium (Ampicillin Sodium) 1 Gm Vial.port, 2 GM IV Q4H, (Reported) FOR 26 DAYS 0500,0900,1300,1700,2100 START 12/10/19 END 01/04/20 Aspirin (Aspirin) 81 Mg Tab.chew, 81 MG PO BID, (Reported) Ceftriaxone Sodium (Ceftriaxone) 1 Gm Vial, 2 GRAM IV BID, (Reported) 0600 AND 1800 START 12/10/19 END 01/04/20 Dicyclomine HCl (Dicyclomine HCl) 10 Mg Cap, 10 MG PO BID, (Reported) Fluticasone Propion/Salmeterol (Advair Hfa 230-21 Mcg Inhaler) 12 Gm Hfa.aer.ad, 2 PUFF INH BID, (Reported) Furosemide (Furosemide) 40 Mg Tablet, 40 MG PO DAILY, (Reported) Metoprolol Tartrate (Metoprolol Tartrate) 25 Mg Tablet, 12.5 MG PO BID, (Reported) HOLD IF AP <60 AND SBP <100 Potassium Chloride (Potassium Chloride) 10 Meq Tab.er.prt, 10 MEQ PO DAILY, (Reported) Rivaroxaban (Xarelto) 20 Mg Tablet, 20 MG PO DAILY, (Reported) Terazosin HCl (Terazosin HCl) 5 Mg Cap, 5 MG PO DAILY, (Reported) Scheduled PRN Acetaminophen (Acetaminophen) 325 Mg Tab, 650 MG PO Q4H PRN for PAIN / FEVER, (Reported) Albuterol Sulfate (Albuterol Sulfate) 2.5 Mg/0.5 Ml Vial.neb, 2.5 MG INH Q6H PRN for SHORTNESS OF BREATH, (Reported) Bisacodyl (Bisacodyl) 10 Mg Supp.rect, 10 MG IN DAILY PRN for CONSTIPATION, (Reported) Levalbuterol Hydrochloride (Xopenex Hfa) 15 Gm Hfa.aer.ad, 2 PUFF INH Q4H PRN for WHEEZING, (Reported) Magnesium Hydroxide (Milk of Magnesia) 400 Mg/5 Ml Oral.susp, 30 ML PO DAILY PRN for CONSTIPATION, (Reported) Sodium Phosphate,Shackelford-Dibasic (Enema) 133 Ml Enema, 1 TAYLOR IN DAILY PRN for CONSTIPATION, (Reported) Allergies Coded Allergies: meperidine (Verified Adverse Reaction, Mild, vomiting, 12/13/19) GME ATTESTATION GME ATTESTATION My faculty preceptor for this patient encounter was physically present during the encounter and was fully available. All aspects of the patient interview, examination, medical decision making process, and medical care plan development were reviewed and approved by the faculty preceptor. The faculty preceptor is aware and concurs with the plan as stated in the body of this note and will attest to such by his/her cosignature. NANCIE OWEN MD Dec 20, 2019 10:43
== END 2019-12-20 07:23 | disposition expired | DRG 306 ==
LOC: EDBD 15:58 → M ED 15:58 → M ED INP 18:32 → ENRESERVDT 20:05 → ENRESERVTM 20:05 → M MSPAV 20:25 → M PCU 12-14 18:48 → M MS5PR 12-19 11:17
PROVIDERS: ADMIT Internal Medicine; ATTEND Internal Medicine
DX: I35.0 Nonrheumatic aortic (valve) stenosis (principal); E43 Unspecified severe protein-calorie malnutrition; I50.43 Acute on chronic combined systolic (congestive) and diastolic (congestive) heart failure; I48.20 Chronic atrial fibrillation, unspecified; R78.81 Bacteremia; Z79.899 Other long term (current) drug therapy; Z79.82 Long term (current) use of aspirin; Z88.8 Allergy status to other drugs, medicaments and biological substances; Z87.891 Personal history of nicotine dependence; R33.9 Retention of urine, unspecified; J44.9 Chronic obstructive pulmonary disease, unspecified; D53.9 Nutritional anemia, unspecified; F41.9 Anxiety disorder, unspecified

== ENCOUNTER → 2019-12-13 | Outpatient (REF) ==
[~2019-12-13] MED LIST changes: +ADVA230A INH; +ALB2.5NEB INH; +ALBU83IN NEB; +AMPI1INJ IV; +ASPI81CH33 PO; +BISA10SU4 PR; +CEFT1INJ5 IV; +ENEMENE PR; +FURO40TA2 PO; +HYDR-3363 PO; +LEVAINH INH; +METO1TAB87 PO; +MILKSUS3 PO; +PNEU0.5I2 IM; +POTA10TA17 PO; +PROAAER10 INH; +PROP20TA72 PO; +XARE20TA PO
[2019-12-13 12:20] LABS: BASO % 0.2 % (0.0-1.0); HEMATOCRIT 31.5 % (42.0-52.0); HEMOGLOBIN 9.5 g/dl (13.5-17.5); LYMPH # 0.7 10^3/uL (1.5-5.0); LYMPH % 5.6 % (24.0-44.0); MEAN CORPUSCULAR HEMOGLOBIN 33.9 pg (27.0-33.0); MEAN CORPUSCULAR HGB CONC 30.2 g/dl (32.0-36.5); MEAN CORPUSCULAR VOLUME 112.5 fl (80.0-96.0); MONO # 1.1 10^3/uL (0.0-0.8); MONO % 9.2 % (0.0-5.0); NEUTROPHILS # 9.7 10^3/uL (1.5-8.5); NEUTROPHILS % 83.4 % (36.0-66.0); PLATELET COUNT, AUTOMATED 304 10^3/uL (150-450); WHITE BLOOD COUNT 11.6 10^3/uL (4.0-10.0)
[2019-12-13 12:49] LABS: ERYTHROCYTE SEDIMENTATION RATE 26 mm/hr (0-20)
[2019-12-13 13:49] LABS: ALBUMIN 2.3 GM/DL (3.2-5.2); ALT/SGPT 263 U/L (12-78); BILIRUBIN,DIRECT 0.3 MG/DL (0.0-0.2); BILIRUBIN,TOTAL 0.6 MG/DL (0.2-1.0); BLOOD UREA NITROGEN 30 MG/DL (7-18); C REACTIVE PROTEIN QUANTITATIV 1.54 MG/DL (0.00-0.30); CALCIUM LEVEL 8.4 MG/DL (8.8-10.2); CARBON DIOXIDE LEVEL 29 MEQ/L (21-32); CHLORIDE LEVEL 104 MEQ/L (98-107); CREATININE FOR GFR 0.89 MG/DL (0.70-1.30); GLOMERULAR FILTRATION RATE > 60.0 (>35); GLUCOSE, FASTING 115 MG/DL (70-100); NT-PRO BNP 29666 PG/ML (<450); POTASSIUM SERUM 4.4 MEQ/L (3.5-5.1); SODIUM LEVEL 141 MEQ/L (136-145); TOTAL PROTEIN 5.8 GM/DL (6.4-8.2)
== END ==
PROVIDERS: ATTEND Family Medicine
DX: I50.9 Heart failure, unspecified (principal); R05 Cough